=== PATIENT | male | born 1950 | race Caucasian/White ===

== ENCOUNTER 2018-02-12 14:45 | Emergency (ER) | payer OTHER, BC ==
[2018-02-12 16:41] LABS: Urine Blood NEGATIVE (NEG); Urine Glucose 1+ (NEG); Urine Protein NEGATIVE (NEG); Urine Specific Gravity >1.030 (1.005-1.030); Urine pH 5.5 (5.0-7.0)
[2018-02-12 17:08] LABS: Absolute Lymphocytes (CBC) 2.1 K/uL (0.7-4.9); Absolute Monocytes 0.4 K/uL (0.1-1.3); Absolute Neutrophil 2.8 K/uL (1.8-8.0); Basophils % 0.6 % (0-1.3); Hematocrit 40.7 % (39.6-49.0); Lymphocytes % 38.1 % (15.3-44.8); MCH 29.8 pg (27.0-35.0); MCV 86.5 fL (80-100); MPV 8.3 fL (7.6-11.3); Monocytes % 7.8 % (3.3-12.3); RBC Red Blood Cell Count 4.71 M/uL (4.33-5.43)
[2018-02-12] MEDS ORDERED: NA CHLORIDE 0.9% 1,000 ML ONE (17:15)
[2018-02-12 17:21] LABS: Potassium 3.6 mEq/L (3.6-5.0)
[2018-02-12 17:24] LABS: Bilirubin Total 0.5 mg/dL (0.3-1.2); Protein, Total 7.6 g/dL (6.0-8.3)
[2018-02-12 17:36] LABS: Calcium Oxalate Crystals- Ur FEW (NONE SEEN); Urine Bacteria NONE SEEN /HPF (NONE SEEN); Urine Culture Reflex Order REFLEXED; Urine RBC <5 /HPF (NONE SEEN)
[2018-02-12 17:37] LABS: Urine Mucus LIGHT /HPF (NONE SEEN)
[2018-02-12 17:58] LABS: Thyroid Stimulating Hormone 1.2 uIU/mL (0.34-5.60)
--- NOTE | 2018-02-12 18:08 | RAD REPORT ---
EXAM DESCRIPTION: RAD - Chest Single View - 02/12/2018 5:35 pm CLINICAL HISTORY: Shortness of breath COMPARISON: None. TECHNIQUE: AP portable chest image was obtained 1728 hours . FINDINGS: Lungs are clear. Heart and vasculature are normal. No measurable pleural effusion and no p neumothorax. No gross bony abnormality seen. No acute aortic findings suspected. IMPRESSION: No acute cardiopulmonary process.
--- NOTE | 2018-02-12 18:33 | EDPHYS ---
Physician Documentation [facility] Name: Jhon Long Age: 67 yrs Sex: Male : 1950 Arrival Date: 02/12/2018 Time: 14:47 Bed 17 Private MD: Shonna Herr H ED Physician Felice Butler HPI: 02/12 18:11 This 67 yrs old Male presents to ER via Ambulatory with complaints of Eye ps1 Pain, Blurred Vision, Fatigue. 18:11 hx of poor vision. States that he had a cataract repair with Dr. Simeon. since then he ps1 has not regained normal vision.. Onset: The symptoms/episode began/occurred 1 week(s) ago. Duration: the symptoms are episodic. Associated signs and symptoms: Pertinent positives: Pertinent negatives: headache, runny nose. Patient cataract repair. Went to [place] for a business trip. States that he had intermittent changes in vision but this is not abnormal for him. He then states that he has had profound fatigue that started once he was in [place] which is abnormal for him because he usually takes medication to help him sleep. He said that it started with pain in the back of his legs and then he just felt like he had to sleep. He got on the plane, did not remember the flight and has been wanting to sleep since. . Historical: - Allergies: 14:53 No Known Allergies; la1 - PMHx: 14:53 Diabetes - NIDDM; Hypertension; Sleep Apnea; la1 - Immunization history:: Adult Immunizations up to date. - Social history:: Smoking status: Patient/guardian denies using tobacco, the patient reports quitting approximately 21 years ago. ROS: 18:11 Constitutional: Negative for fever, chills, and weight loss. ps1 18:11 Neck: Negative for injury, pain, and swelling, Cardiovascular: Negative for chest pain, palpitations, and edema, Respiratory: Negative for shortness of breath, cough, wheezing, and pleuritic chest pain, Abdomen/GI: Negative for abdominal pain, nausea, vomiting, diarrhea, and constipation, Back: Negative for injury and pain, MS/Extremity: Negative for injury and deformity, Skin: Negative for injury, rash, and discoloration, Neuro: Negative for headache, weakness, numbness, tingling, and seizure, Psych: Negative for depression, anxiety, suicide ideation, homicidal ideation, and hallucinations. 18:11 Eyes: Positive for visual disturbance. Exam: 18:11 Constitutional: This is a well developed, well nourished patient who is awake, alert, ps1 and in no acute distress. Head/Face: Normocephalic, atraumatic. 18:11 Chest/axilla: Normal chest wall appearance and motion. Nontender with no deformity. No lesions are appreciated. Cardiovascular: Regular rate and rhythm. No gallops, murmurs, or rubs. Normal PMI, no JVD. No pulse deficits. Respiratory: Lungs have equal breath sounds bilaterally, clear to auscultation and percussion. No rales, rhonchi or wheezes noted. No increased work of breathing, no retractions or nasal flaring. Abdomen/GI: Soft, non-tender, with normal bowel sounds. No distension or tympany. No guarding or rebound. No evidence of tenderness throughout. Skin: Warm, dry with normal turgor. Normal color with no rashes, no lesions, and no evidence of cellulitis. MS/ Extremity: Pulses equal, no cyanosis. Neurovascular intact. Full, normal range of motion. Neuro: Awake and alert, GCS 15, oriented to person, place, time, and situation. Cranial nerves II-XII grossly intact. Sensory grossly intact. Psych: Awake, alert, with orientation to person, place and time. Behavior, mood, and affect are within normal limits. 18:11 Eyes: Extraocular movements: intact throughout, Conjunctiva: normal, Corneas: no acute changes, Sclera: no acute changes, Visual arita: are intact. Vital Signs: 14:53 BP 150 / 100; Pulse 76; Resp 16; Temp 98.0(TE); Pulse Ox 100% on R/A; Weight 88 kg; la1 Height 5 ft. 8 in. (172.72 cm); 16:30 BP 147 / 92; Pulse 71; Resp 18; Pulse Ox 100% on R/A; ph 17:31 BP 156 / 84; Pulse 63; Resp 16; Pulse Ox 95% on R/A; ph 18:30 BP 146 / 78; Pulse 67; Resp 18; Temp 97.8; Pulse Ox 99% on R/A; ph 14:53 Body Mass Index 29.50 (88.00 kg, 172.72 cm) la1 MDM: 15:52 Patient medically screened. ps1 18:11 Data reviewed: vital signs, nurses notes, lab test result(s), EKG, radiologic studies. ps1 ED course: Pt has been sleeping since exam. No lab abnormalities that are significant other than possible dehydration. IVF given. Possible viral etiology of disease. Will have patient follow up with Dr. Simeon and his PCP for reevaluation. . 02/12 15:50 Order name: TSH; Complete Time: 18:05 ps1 02/12 15:50 Order name: CBC with Diff; Complete Time: 17:11 ps1 02/12 15:50 Order name: CMP; Complete Time: 18:05 ps1 02/12 15:50 Order name: Troponin (emerg Dept Use Only); Complete Time: 17:37 ps1 02/12 15:50 Order name: D-Dimer; Complete Time: 17:37 ps1 02/12 16:33 Order name: Urine Dipstick--Ancillary (enter results); Complete Time: 16:42 jw5 02/12 15:50 Order name: Urine Dipstick-Ancillary (obtain specimen); Complete Time: 16:19 ps1 02/12 15:50 Order name: EKG - Nurse/Tech; Complete Time: 16:45 ps1 02/12 15:50 Order name: CXR XRAY; Complete Time: 18:10 ps1 02/12 16:36 Order name: Urine Microscopic Only; Complete Time: 17:40 ph 02/12 17:16 Order name: EKG Electrocardiogram EDMS 02/12 17:38 Order name: Urine Culture EDMS Administered Medications: 17:10 Drug: NS 0.9% 1000 ml Route: IV; Rate: 1 bolus; Site: right antecubital; ph 18:20 Follow up: Response: No adverse reaction; IV Status: Completed infusion ph Disposition: 02/12/18 18:33 Discharged to Home. Impression: Fatigue, Visual changes. . - Condition is Stable. - Discharge Instructions: Fatigue. - Medication Reconciliation Form, Thank You Letter, Antibiotic Education, Prescription Opioid Use form. - Follow up: Shonna Herr DO; When: As needed; Reason: Recheck today's complaints, Continuance of care, Re-evaluation by your physician. Follow up: Emergency Department; When: As needed; Reason: Fever > 102 F, Trouble breathing, Worsening of condition. Follow up: Fabricio Simeon MD; When: 1 week; Reason: Recheck today's complaints, Continuance of care, Re-evaluation by your physician. - Problem is new. - Symptoms are unchanged. Signatures: Dispatcher [employer] EDJosé Antonio Storm RN RN la1 Vivienne Walden RN RN ph Singer, Phillip, MD MD ps1
--- NOTE | 2018-02-12 18:33 | ER ---
Nurse's Notes [facility] Name: Jhon Long Age: 67 yrs Sex: Male : 1950 Arrival Date: 02/12/2018 Time: 14:47 Bed 17 Private MD: Shonna Herr H Diagnosis: Fatigue, Visual changes. Presentation: 02/12 14:51 Presenting complaint: Patient states: I have been having chronic blurry vision, I went la1 to [facility] this week and both my eyes started hurting on Monday and since Monday night I have been having extreme fatigue. Transition of care: patient was not received from another setting of care. Mechanism of Injury:. The patient denies any loss of vision. Onset of symptoms was February 12, 2018. Care prior to arrival: None. 14:51 Method Of Arrival: Ambulatory la1 14:51 Acuity: LILIANE 3 la1 Historical: - Allergies: 14:53 No Known Allergies; la1 - PMHx: 14:53 Diabetes - NIDDM; Hypertension; Sleep Apnea; la1 - Immunization history:: Adult Immunizations up to date. - Social history:: Smoking status: Patient/guardian denies using tobacco, the patient reports quitting approximately 21 years ago. Screenin:53 Abuse screen: Denies threats or abuse. Denies injuries from another. Nutritional ph screening: No deficits noted. Tuberculosis screening: Fall Risk None identified. 15:54 Sepsis Screening:. ph Assessment: 15:48 General: Appears in no apparent distress. comfortable, well groomed, Behavior is calm, ph cooperative, appropriate for age, Reports fatigue for 2-3 days, Pt states, " I have been so exhausted since Monday. It's like I can sleep anywhere. I usually have a hard time sleeping and it's like I can't keep my eyes open." Denies fever, chills. Pain: Complains of pain in lateral aspect of right thigh. Neuro: Level of Consciousness is awake, alert, obeys commands, Oriented to person, place, time, situation, Reports blurred vision. Cardiovascular: Reports fatigue, Denies chest pain, nausea, shortness of breath, vomiting, Capillary refill < 3 seconds Patient's skin is warm and dry. Respiratory: Airway is patent Respiratory effort is even, unlabored, Respiratory pattern is regular, symmetrical, Denies cough, shortness of breath. GI: No signs and/or symptoms were reported involving the gastrointestinal system. : Denies burning with urination, urinary frequency. EENT: Sclera/Cornea are clear in right eye and left eye Reports blurred vision hx of cataracts w/ roberta cataract sx 2017. Derm: Skin is intact, is healthy with good turgor, Skin is pink, warm \\T\\ dry. Musculoskeletal: Circulation, motion, and sensation intact. Range of motion: intact in all extremities. 17:00 Reassessment: Patient appears in no apparent distress at this time. Patient and/or ph family updated on plan of care and expected duration. Pain level reassessed. Patient is alert, oriented x 3, equal unlabored respirations, skin warm/dry/pink. Patient denies pain at this time. 18:30 Reassessment: Patient appears in no apparent distress at this time. Patient and/or ph family updated on plan of care and expected duration. Pain level reassessed. Patient is alert, oriented x 3, equal unlabored respirations, skin warm/dry/pink. Pt resting quietly, awaiting discharge. Vital Signs: 14:53 BP 150 / 100; Pulse 76; Resp 16; Temp 98.0(TE); Pulse Ox 100% on R/A; Weight 88 kg; la1 Height 5 ft. 8 in. (172.72 cm); 16:30 BP 147 / 92; Pulse 71; Resp 18; Pulse Ox 100% on R/A; ph 17:31 BP 156 / 84; Pulse 63; Resp 16; Pulse Ox 95% on R/A; ph 18:30 BP 146 / 78; Pulse 67; Resp 18; Temp 97.8; Pulse Ox 99% on R/A; ph 14:53 Body Mass Index 29.50 (88.00 kg, 172.72 cm) la1 ED Course: 14:47 Patient arrived in ED. as 14:49 Shonna Herr DO is Private Physician. as 14:53 Triage completed. la1 14:53 Arm band placed on left wrist. la1 14:58 Vivienne Walden RN is Primary Nurse. ph 15:32 Felice Butler MD is Attending Physician. ps1 15:55 Patient has correct armband on for positive identification. Placed in gown. Bed in low ph position. Call light in reach. Side rails up X 1. monitor and storage bin tender on. Pulse ox on. NIBP on. Warm blanket given. Pillow given. 15:55 Inserted saline lock: 18 gauge in left antecubital area, using aseptic technique. Blood ph collected. 16:50 EKG done, by aviation safety equipment technician. reviewed by Felice Butler MD. at1 17:34 X-ray completed. Portable x-ray completed in exam room. Patient tolerated procedure mh1 well. 17:36 CXR XRAY In Process Unspecified. EDMS 18:32 Shonna Herr DO is Referral Physician. ps1 18:33 Fabricio Simeon MD is Referral Physician. ps1 18:45 No provider procedures requiring assistance completed. IV discontinued, intact, ph bleeding controlled, No redness/swelling at site. Pressure dressing applied. Administered Medications: 17:10 Drug: NS 0.9% 1000 ml Route: IV; Rate: 1 bolus; Site: right antecubital; ph 18:20 Follow up: Response: No adverse reaction; IV Status: Completed infusion ph Outcome: 18:33 Discharge ordered by . ps1 18:49 Patient left the ED. ph 18:49 Discharged to home ambulatory. ph 18:49 Condition: good 18:49 Discharge instructions given to patient, Instructed on discharge instructions, follow up and referral plans. Demonstrated understanding of instructions, follow-up care. Signatures: Dispatcher [employer] EDVA Jenna Chavez 1 Daxa Pérez Amanda, interior wall assembler EKG Tat1 José Antonio Arnett RN RN id1 Vivienne Walden RN RN ph Singer, Phillip, MD MD ps1
[2018-02-12 19:04] VITALS: TEMP 98
[2018-02-12 19:06] VITALS: BP 156/84; O2SAT 95
--- NOTE | 2018-02-13 08:28 | EKG ---
Test Date: 2018-02-12 Test Time: 16:34:51 Executive Secretary: PADMA MEASUREMENT RESULTS: Intervals: Rate: 63 MN: 166 QRSD: 104 QT: 396 QTc: 405 [place]: P: 9 MN: 166 QRS: -19 T: -14 INTERPRETIVE STATEMENTS: Normal sinus rhythm Minimal voltage criteria for LVH, may be normal variant Nonspecific T wave abnormality Abnormal ECG Compared to ECG 06/27/2017 10:38:42 No significant changes Electronically Signed On 02-13-18 08:26:25 CDT by Jesse Wilder
== END 2018-02-12 18:49 | disposition home or self-care (01) ==
LOC: ER 14:45
DX: H53.9 Unspecified visual disturbance (principal); I10 Essential (primary) hypertension; Z98.890 Other specified postprocedural states
CPT/HCPCS: 36415; 71045; 80053; 84443; 84484; 85025; 85379; 87086; 87088; 93005; 96360; 99284; J7030; 81003; 81015

== ENCOUNTER 2019-08-06 07:57 | Observation (INO) | payer OTHER, BC ==
[2019-08-06] MEDS ORDERED: SMZ./TMP. 800/160 MG TABLET ONE (08:31)
[2019-08-06] MEDS ORDERED: dexAMETHasone 10 MG/ML VIAL ONE (08:31)
[2019-08-06] MEDS ORDERED: FAMOTIDINE 20 MG/2 ML VIAL IV ONE (08:32)
[2019-08-06] MEDS ORDERED: MUPIROCIN 2% OINT 22GM TUBE TOP ONE (08:32)
[2019-08-06] MEDS ORDERED: NA CHLORIDE 0.9% 1,000 ML ONE (08:32)
[2019-08-06] MEDS ORDERED: DOXYCYCLINE 100 MG CAP PO ONE (08:32)
[2019-08-06] MEDS ORDERED: CEFAZOLIN/SWI 1gm 1 GM/10 ML SYR ONE (08:33)
[2019-08-06 08:43] LABS: Absolute Lymphocytes (CBC) 1.9 K/uL (0.7-4.9); Basophils % 0.8 % (0-1.3); Lymphocytes % 33.8 % (15.3-44.8); MPV 8.1 fL (7.6-11.3); RBC Red Blood Cell Count 5.02 M/uL (4.33-5.43)
[2019-08-06] MEDS ORDERED: DIPHENHYDRAMINE 50 MG/ML VIAL ONE (09:03)
[2019-08-06 09:05] LABS: Albumin 4.3 g/dL (3.4-5.0); Bilirubin Total 0.5 mg/dL (0.2-1.0); Protein, Total 8.2 g/dL (6.4-8.2)
--- NOTE | 2019-08-06 10:43 | EDPHYS ---
Physician Documentation [facility] Name: Jhon Long Age: 69 yrs Sex: Male : 1950 Arrival Date: 08/06/2019 Time: 07:59 Bed 15 Private MD: ED Physician Yariel Farfan HPI: 08/06 08:17 This 69 yrs old Male presents to ER via Ambulatory with complaints of Rash. [facility] 08:17 The patient's rash thought to be caused by Dermatitis. The rash is located on the face, anette chest, right arm and left arm. The rash can be described as crusted, erythematous. Severity of symptoms: At their worst the symptoms were. The patient has not experienced similar symptoms in the past. Historical: - Allergies: 08:02 No Known Allergies; ss - Home Meds: 11:33 diltiazem HCl 90 mg Oral tab daily [Active]; lisinopril Oral [Active]; metformin 1,000 bp mg Oral tab 2 times per day [Active]; - PMHx: 08:02 Diabetes - NIDDM; Hypertension; Sleep Apnea; COPD; ss - Immunization history:: Adult Immunizations up to date. - Social history:: Smoking status: Patient/guardian denies using tobacco. - Ebola Screening: : Patient denies exposure to infectious person Patient denies travel to an Ebola-affected area in the 21 days before illness onset. - Family history:: not pertinent. ROS: 08:17 Constitutional: Negative for fever, chills, and weight loss, Eyes: Negative for injury, anette pain, redness, and discharge, ENT: Negative for injury, pain, and discharge, Neck: Negative for injury, pain, and swelling, Cardiovascular: Negative for chest pain, palpitations, and edema, Respiratory: Negative for shortness of breath, cough, wheezing, and pleuritic chest pain, Abdomen/GI: Negative for abdominal pain, nausea, vomiting, diarrhea, and constipation, Back: Negative for injury and pain, : Negative for injury, bleeding, discharge, and swelling, MS/Extremity: Negative for injury and deformity, Neuro: Negative for headache, weakness, numbness, tingling, and seizure. 08:17 Skin: Positive for erythema, rash, swelling, of the face, chest, right arm and left arm. Exam: 08:17 Constitutional: This is a well developed, well nourished patient who is awake, alert, anette and in no acute distress. Eyes: Pupils equal round and reactive to light, extra-ocular motions intact. Lids and lashes normal. Conjunctiva and sclera are non-icteric and not injected. Cornea within normal limits. Periorbital areas with no swelling, redness, or edema. ENT: Nares patent. No nasal discharge, no septal abnormalities noted. Tympanic membranes are normal and external auditory canals are clear. Oropharynx with no redness, swelling, or masses, exudates, or evidence of obstruction, uvula midline. Mucous membranes moist. Neck: Trachea midline, no thyromegaly or masses palpated, and no cervical lymphadenopathy. Supple, full range of motion without nuchal rigidity, or vertebral point tenderness. No Meningismus. Chest/axilla: Normal chest wall appearance and motion. Nontender with no deformity. No lesions are appreciated. Cardiovascular: Regular rate and rhythm with a normal S1 and S2. No gallops, murmurs, or rubs. Normal PMI, no JVD. No pulse deficits. Respiratory: Lungs have equal breath sounds bilaterally, clear to auscultation and percussion. No rales, rhonchi or wheezes noted. No increased work of breathing, no retractions or nasal flaring. Abdomen/GI: Soft, non-tender, with normal bowel sounds. No distension or tympany. No guarding or rebound. No evidence of tenderness throughout. Back: No spinal tenderness. No costovertebral tenderness. Full range of motion. Male : Normal genitalia with no discharge or lesions. MS/ Extremity: Pulses equal, no cyanosis. Neurovascular intact. Full, normal range of motion. Neuro: Awake and alert, GCS 15, oriented to person, place, time, and situation. Cranial nerves II-XII grossly intact. Motor strength 5/5 in all extremities. Sensory grossly intact. Cerebellar exam normal. Normal gait. Psych: Awake, alert, with orientation to person, place and time. Behavior, mood, and affect are within normal limits. 08:17 Head/face: Noted is rash, swelling, that is mild, of the forehead, right eye, right cheek, nose, left cheek and left eye. Vital Signs: 08:02 BP 195 / 95; Pulse 65; Resp 16; Temp 98.6; Pulse Ox 99% on R/A; Weight 90.72 kg; Height ss 5 ft. 8 in. (172.72 cm); Pain 0/10; 10:00 BP 187 / 100; Pulse 71; Resp 14; Pulse Ox 95% ; bp 08:02 Body Mass Index 30.41 (90.72 kg, 172.72 cm) ss MDM: 08:03 Patient medically screened. [facility] 08:30 Data reviewed: vital signs, nurses notes, lab test result(s). [facility] [place] 08/06 08:17 Order name: CBC with Diff; Complete Time: 09:43 [facility] [place] 08/06 08:17 Order name: Comprehensive Metabolic Panel; Complete Time: :43 [facility] [place] 08/06 08:17 Order name: Wound dressing; Complete Time: 09: [facility] Administered Medications: 08:50 Drug: NS 0.9% 1000 ml Route: IV; Rate: 1 bolus; Site: left hand; la1 11:34 Follow up: IV Status: Completed infusion; IV Intake: 1000ml bp 08:51 Drug: Pepcid 40 mg Route: IVP; Site: left antecubital; la1 11:34 Follow up: Response: No adverse reaction bp 08:51 Drug: Decadron - Dexamethasone 10 mg Route: IVP; Site: left hand; la1 11:34 Follow up: Response: Marked relief of symptoms bp 08:52 Drug: Ancef 1 grams Route: IVPB; Site: left hand; la1 11:35 Follow up: IV Status: Completed infusion; IV Intake: 100ml bp 08:52 Drug: Bactroban Ointment 2 % 1 application Route: Topical; Site: face; la1 08:52 Drug: Bactrim (160 mg-800 mg (DS) 1 tablet Route: PO; la1 11:35 Follow up: Response: No adverse reaction bp 08:53 Drug: Doxycycline 200 mg Route: PO; la1 11:35 Follow up: Response: No adverse reaction bp 09:06 Drug: Benadryl 50 mg Route: IVP; Site: left hand; bp 11:34 Follow up: Response: Marked relief of symptoms bp 10:50 Drug: predniSONE 20 mg Route: PO; bp 11:35 Follow up: Response: No adverse reaction bp Disposition: 08/06/19 10:41 Hospitalization ordered by Victor M Sigala for Inpatient Admission. Preliminary diagnosis are Cellulitis of face, Allergic contact dermatitis, unspecified cause, Type 2 diabetes mellitus, Impetigo. - Bed requested for Telemetry/MedSurg (Inpatient). - Status is Inpatient Admission. bp - Condition is Stable. - Problem is new. - Symptoms are unchanged. UTI on Admission? No Signatures: Dispatcher [employer] EDMS Yariel Farfan MD MD cha Smirch, Shelby, RN RN ss José Antonio Arnett RN RN la1 Michael Song RN RN bp Corrections: (The following items were deleted from the chart) 11:29 10:41 Hospitalization Ordered by Victor M Sigala MD for Inpatient Admission. Preliminary ss diagnosis is Cellulitis of face; Allergic contact dermatitis, unspecified cause; Type 2 diabetes mellitus; Impetigo. Bed requested for Telemetry/MedSurg (Inpatient). Status is Inpatient Admission. Condition is Stable. Problem is new. Symptoms are unchanged. UTI on Admission? No. anette 11:59 11:29 08/06/2019 10:41 Hospitalization Ordered by Victor M Sigala MD for Inpatient bp Admission. Preliminary diagnosis is Cellulitis of face; Allergic contact dermatitis, unspecified cause; Type 2 diabetes mellitus; Impetigo. Bed requested for Telemetry/MedSurg (Inpatient). Status is Inpatient Admission. Condition is Stable. Problem is new. Symptoms are unchanged. UTI on Admission? No. ss
--- NOTE | 2019-08-06 10:43 | ER ---
Nurse's Notes [facility] Name: Jhon Long Age: 69 yrs Sex: Male : 1950 Arrival Date: 08/06/2019 Time: 07:59 Bed 15 Private MD: Diagnosis: Cellulitis of face;Allergic contact dermatitis, unspecified cause;Type 2 diabetes mellitus;Impetigo Presentation: 08/06 07:59 Presenting complaint: EMS states: Cutting down trees two days ago, redness, itching and ss swelling to eyes and bilateral upper extremities that began yesterday and is much worse today. Denies difficulty breathing. Transition of care: patient was not received from another setting of care. Onset of symptoms was August 03, 2019. Risk Assessment: Do you want to hurt yourself or someone else? Patient reports no desire to harm self or others. Initial Sepsis Screen: Does the patient meet any 2 criteria? No. Patient's initial sepsis screen is negative. Does the patient have a suspected source of infection? No. Patient's initial sepsis screen is negative. Care prior to arrival: None. 07:59 Method Of Arrival: Ambulatory ss 07:59 Acuity: LILIANE 3 ss Historical: - Allergies: 08:02 No Known Allergies; ss - Home Meds: 11:33 diltiazem HCl 90 mg Oral tab daily [Active]; lisinopril Oral [Active]; metformin 1,000 bp mg Oral tab 2 times per day [Active]; - PMHx: 08:02 Diabetes - NIDDM; Hypertension; Sleep Apnea; COPD; ss - Immunization history:: Adult Immunizations up to date. - Social history:: Smoking status: Patient/guardian denies using tobacco. - Ebola Screening: : Patient denies exposure to infectious person Patient denies travel to an Ebola-affected area in the 21 days before illness onset. - Family history:: not pertinent. Screenin:55 Abuse screen: Denies threats or abuse. Nutritional screening: No deficits noted. la1 Tuberculosis screening: No symptoms or risk factors identified. Fall Risk None identified. Assessment: 08:53 General: Appears in no apparent distress. Behavior is calm, cooperative. Pain: Denies la1 pain. Neuro: Level of Consciousness is awake, alert, obeys commands, Oriented to person, place, time, situation. Cardiovascular: Capillary refill < 3 seconds Patient's skin is warm and dry. Respiratory: Airway is patent Respiratory effort is even, unlabored, Respiratory pattern is regular, symmetrical. GI: No signs and/or symptoms were reported involving the gastrointestinal system. : No signs and/or symptoms were reported regarding the genitourinary system. Derm: Rash noted that is draining clear fluid, itchy, papular, red, raised, urticaria, vesicular, on face, chest, right arm and left arm. 09:00 Reassessment: RECD REPORT FROM JOSÉ ANTONIO CHEW. 69YO WM P/W INFLAMMATION AND RASH TO BUE, FACE bp AND TRUNK WITH OMI-ORBITAL EDEMA. 10:19 Reassessment: Patient states symptoms have improved. bp Vital Signs: 08:02 BP 195 / 95; Pulse 65; Resp 16; Temp 98.6; Pulse Ox 99% on R/A; Weight 90.72 kg; Height ss 5 ft. 8 in. (172.72 cm); Pain 0/10; 10:00 BP 187 / 100; Pulse 71; Resp 14; Pulse Ox 95% ; bp 08:02 Body Mass Index 30.41 (90.72 kg, 172.72 cm) ED Course: 07:59 Patient arrived in ED. ss 08:00 Triage completed. ss 08:02 Arm band placed on right wrist. ss 08:03 Yariel Farfan MD is Attending Physician. anette 08:30 José Antonio Arnett RN is Primary Nurse. la1 08:54 Patient has correct armband on for positive identification. la1 08:54 Inserted saline lock: 22 gauge in left hand, using aseptic technique. la1 10:40 Victor M Sigala MD is Hospitalizing Provider. anette 11:31 No provider procedures requiring assistance completed. Patient admitted, IV remains in bp place. Administered Medications: 08:50 Drug: NS 0.9% 1000 ml Route: IV; Rate: 1 bolus; Site: left hand; la1 11:34 Follow up: IV Status: Completed infusion; IV Intake: 1000ml bp 08:51 Drug: Pepcid 40 mg Route: IVP; Site: left antecubital; la1 11:34 Follow up: Response: No adverse reaction bp 08:51 Drug: Decadron - Dexamethasone 10 mg Route: IVP; Site: left hand; la1 11:34 Follow up: Response: Marked relief of symptoms bp 08:52 Drug: Ancef 1 grams Route: IVPB; Site: left hand; la1 11:35 Follow up: IV Status: Completed infusion; IV Intake: 100ml bp 08:52 Drug: Bactroban Ointment 2 % 1 application Route: Topical; Site: face; la1 08:52 Drug: Bactrim (160 mg-800 mg (DS) 1 tablet Route: PO; la1 11:35 Follow up: Response: No adverse reaction bp 08:53 Drug: Doxycycline 200 mg Route: PO; la1 11:35 Follow up: Response: No adverse reaction bp 09:06 Drug: Benadryl 50 mg Route: IVP; Site: left hand; bp 11:34 Follow up: Response: Marked relief of symptoms bp 10:50 Drug: predniSONE 20 mg Route: PO; bp 11:35 Follow up: Response: No adverse reaction bp Intake: 11:34 IV: 1000ml; Total: 1000ml. bp 11:35 IV: 100ml; Total: 1100ml. bp Outcome: 10:41 Decision to Hospitalize by Provider. anette 11:36 Condition: stable bp 11:36 Instructed on the need for admit. 11:44 Admitted to Med/surg accompanied by tech, via wheelchair, room 221, with chart, Report bp called to RODOLFO CHEW 11:59 Patient left the ED. bp Signatures: Yariel Farfan MD MD cha Smirch, Shelby RN RN ss José Antonio Arnett RN RN laMichael Cortes RN RN bp
[2019-08-06] MEDS ORDERED: predniSONE 20 MG TAB ONE (11:10)
[2019-08-06] MEDS: INSULIN -REGULAR HUMAN 50 UNIT/0.5 ML ML SQ SCH ×3 (12:15→21:05)
[2019-08-06] MEDS ORDERED: ONDANSETRON 4 MG/2 ML VIAL IV PRN (12:15)
[2019-08-06 12:20] VITALS: BMI 30.4
[2019-08-06] MEDS: NA CHLORIDE 0.9% 1,000 ML IV SCH ×2 (12:45→22:40)
--- NOTE | 2019-08-06 17:38 | P.HP ---
Certification for Inpatient Patient admitted to: Observation With expected LOS: <2 Midnights Practitioner: I am a practitioner with admitting privileges, knowledge of patient current condition, hospital course, and medical plan of care. Services: Services provided to patient in accordance with Admission requirements found in Title 42 Section 412.3 of the Code of Federal Regulations Patient History Date of Service: 08/06/19 Reason for admission: Contact dermatitis History of Present Illness: This is a 61-year-old male with past medical history of hypertension, non- insulin-dependent diabetes, sleep apnea who presents to the emergency room with a rash on his face. Per patient, 2 days ago, he was mowing and cutting sotalol on and was in contact with some branches on his face. This was at the son's house, and he states his son's backyard does have some Soma, placed and open as well as poison walter. He started itching on his hand that evening. By the next day, his eye and face have swollen. The day of arrival, patient states that he could not even open his left eye in his right eye and only slightly open. He states that the rash is itchy. His eyes also seemed to be red. He denies any fevers, chills, chest pain, shortness of breath, headache, vision changes, breathing difficulties, swelling of the tongue or throat shortness of breath or any vision changes somewhat. He therefore called the ambulance and and was brought into the emergency room. In the ER, blood pressure was elevated to 195/95, heart rate of 65, respirations of 16, afebrile at 98.6 and satting 99% on room air. He has a BMI of 30.4. His labs were unremarkable. In the ER, he received IV fluids, Pepcid , dexamethasone, ancef, Bactrim, doxycycline and IV Benadryl. The time of my exam, patient is alert oriented x3, in no acute distress and hemodynamically stable. He was able to open his eyes more, the rash had improved. Allergies No Known Allergies Allergy (Verified 06/28/17 14:08) Home medications list reviewed: Yes Home Medications: Diltiazem HCl [Diltiazem ER] 90 mg PO DAILY 06/27/17 Metformin HCl [Glucophage] 1,000 mg PO BID 06/27/17 Glimepiride [Amaryl] 2 mg PO BID 10/08/19 RX: Gabapentin 600 mg PO BID 08/06/19 - Past Medical/Surgical History Has patient received pneumonia vaccine in the past: Yes Diabetic: No -: DM -: HTN -: Cholecystectomy, -: Shoulder repair -: Left knee tendon repair - Family History Mother -: Hypertension, Diabetes - Social History Smoking Status: Former smoker Alcohol use: Yes CD- Drugs: No Caffeine use: No Place of Residence: Home Review of Systems 10-point ROS is otherwise unremarkable Physical Examination - Vital Signs Temperature: 97.9 F Blood Pressure: 175/88 Pulse: 84 Respirations: 18 Pulse Ox (%): 94 - Physical Exam General: Alert, In no apparent distress, Oriented x3 HEENT: Atraumatic, PERRLA, Mucous membr. moist/pink, Other (Bilateral eye swelling, now improved), EOMI, Sclerae nonicteric Neck: Supple, 2+ carotid pulse no bruit, No LAD, Without JVD or thyroid abnormality Respiratory: Clear to auscultation bilaterally, Normal air movement Cardiovascular: Regular rate/rhythm, Normal S1 S2 Gastrointestinal: Normal bowel sounds, No tenderness Musculoskeletal: No tenderness Integumentary: No rashes, Other (Contact dermatitis rash: On face, underneath bilateral on ice, outwards the cheeks. Delay needed rash, slightly raised and erythematous. Also noted on base of his neck) Neurological: Normal gait, Normal speech, Normal strength at 5/5 x4 extr, Normal tone, Normal affect Lymphatics: No axilla or inguinal lymphadenopathy - Studies Laboratory Data (last 24 hrs) 08/06/19 08:26: Sodium 141, Potassium 4.0, BUN 15, Creatinine 1.08, Glucose 115 H, Total Bilirubin 0.5, AST 27, ALT 48, Alkaline Phosphatase 64 08/06/19 08:26: WBC 5.7, Hgb 15.2, Hct 45.0, Plt Count 196 Assessment and Plan - Problems (Diagnosis) (1) Contact dermatitis Current Visit: Yes Status: Acute Plan: Likely secondary to poison walter, poison oak or sumac. Patient thinks he may have come into contact with 1 of these 3 in his son's backyard while mowing the lawn. -IV steroids due to swelling of the eyes as well as the rash on the face -will continue p.o. Benadryl as needed -patient received a dose of Ancef, Bactrim and doxycycline in the ER. No need for further antibiotics at this time -continue to monitor respiratory status, though not compromised at this time Qualifiers: Contact dermatitis type: irritant Contact dermatitis trigger: other trigger Qualified Code(s): L24.89 - Irritant contact dermatitis due to other agents; L24.8 - Irritant contact dermatitis due to other agents (2) Diabetes mellitus Current Visit: Yes Status: Acute Plan: Accu-Cheks and mild sliding scale insulin Qualifiers: Diabetes mellitus type: type 2 Diabetes mellitus assisted insulin use: without assisted use Diabetes mellitus complication status: with hyperglycemia Qualified Code(s): E11.65 - Type 2 diabetes mellitus with hyperglycemia (3) Hypertension Current Visit: No Status: Chronic Plan: Initially, patient's blood pressure elevated. -restart home med medications of diltiazem. -will continue to monitor. If not controlled, may need to add another agent prior to discharge Qualifiers: Hypertension type: essential hypertension Qualified Code(s): I10 - Essential (primary) hypertension (4) Sleep apnea Current Visit: No Status: Chronic Plan: Patient uses CPAP at home. He states he does not have sleep apnea. Will order CPAP if needed, but patient states he does not think he will need it tonight. Qualifiers: Sleep apnea type: unspecified type Qualified Code(s): G47.30 - Sleep apnea , unspecified - Plan DVT prophylaxis: Lovenox GI prophylaxis: None Diet: 1800 ADA Disposition: Admit to floor with tele, pending symptomatic improvement. Discharge Plan: Home Plan to discharge in: 24 Hours - Advance Directives Does patient have a Living Will: No Does patient have a Durable POA for Healthcare: No Time Spent Managing Pts Care (In Minutes): 55
[2019-08-06] MEDS: DILTIAZEM HCL 180 MG SR CAP PO SCH (17:39)
[2019-08-06] MEDS: METHYLPREDNISOLONE 40 MG INJ IV SCH (18:24)
[2019-08-06 20:47] VITALS: O2SAT 93
[2019-08-06] MEDS ORDERED: HOME MED 1 EA UNK (Gabapentin [Gabapentin] 600 MG) PO SCH (21:00)
[2019-08-06] MEDS: DIPHENHYDRAMINE 25 MG TAB/CAP PO PRN (21:05)
[2019-08-06] MEDS: GABAPENTIN 300 MG CAP PO SCH (21:05)
[2019-08-07] MEDS: METHYLPREDNISOLONE 40 MG INJ IV SCH ×2 (01:22→08:49)
[2019-08-07 06:31] LABS: Absolute Lymphocytes (CBC) 0.7 K/uL (0.7-4.9); Basophils % 0.1 % (0-1.3); Hematocrit 38.5 % (39.6-49.0); Lymphocytes % 9.2 % (15.3-44.8); MPV 8.4 fL (7.6-11.3); RBC Red Blood Cell Count 4.35 M/uL (4.33-5.43)
[2019-08-07 06:43] LABS: Albumin 3.6 g/dL (3.4-5.0); Bilirubin Total 0.3 mg/dL (0.2-1.0); Magnesium 1.9 mg/dL (1.8-2.4); Phosphorus 2.7 mg/dL (2.5-4.9); Potassium 4.2 mmol/L (3.5-5.1); Protein, Total 6.9 g/dL (6.4-8.2)
[2019-08-07] MEDS: INSULIN -REGULAR HUMAN 50 UNIT/0.5 ML ML SQ SCH ×2 (07:30→12:51)
[2019-08-07] MEDS: NA CHLORIDE 0.9% 1,000 ML IV SCH (08:43)
[2019-08-07] MEDS: DILTIAZEM HCL 180 MG SR CAP PO SCH (08:45)
[2019-08-07] MEDS: GABAPENTIN 300 MG CAP PO SCH (08:48)
[2019-08-07] MEDS: DIPHENHYDRAMINE 25 MG TAB/CAP PO PRN (08:49)
[2019-08-07 08:50] LABS: Blood Morphology Comment NOT SEEN (NOT SEEN); Platelet Estimate ADEQ; Urine White Blood Cell Casts OK
[2019-08-07] MEDS ORDERED: ENOXAPARIN 40 MG/0.4 ML SQ SCH (09:00)
[2019-08-07 10:26] VITALS: TEMP 97.9
[2019-08-07 14:02] VITALS: BP 158/72
--- NOTE | 2019-08-07 17:20 | P.SSS ---
Patient History Date of Service: 08/07/19 Reason for admission: Contact dermatitis History of Present Illness: This is a 61-year-old male with past medical history of hypertension, non- insulin-dependent diabetes, sleep apnea who presents to the emergency room with a rash on his face. Per patient, 2 days ago, he was mowing and cutting sotalol on and was in contact with some branches on his face. This was at the son's house, and he states his son's backyard does have some Soma, placed and open as well as poison walter. He started itching on his hand that evening. By the next day, his eye and face have swollen. The day of arrival, patient states that he could not even open his left eye in his right eye and only slightly open. He states that the rash is itchy. His eyes also seemed to be red. He denies any fevers, chills, chest pain, shortness of breath, headache, vision changes, breathing difficulties, swelling of the tongue or throat shortness of breath or any vision changes somewhat. He therefore called the ambulance and and was brought into the emergency room. In the ER, blood pressure was elevated to 195/95, heart rate of 65, respirations of 16, afebrile at 98.6 and satting 99% on room air. He has a BMI of 30.4. His labs were unremarkable. In the ER, he received IV fluids, Pepcid , dexamethasone, ancef, Bactrim, doxycycline and IV Benadryl. The time of my exam, patient is alert oriented x3, in no acute distress and hemodynamically stable. He was able to open his eyes more, the rash had improved. Allergies No Known Allergies Allergy (Verified 06/28/17 14:08) Home medications list reviewed: Yes Home Medications: Diltiazem HCl [Diltiazem 12Hr ER] 90 mg PO DAILY 06/27/17 Metformin HCl [Glucophage] 1,000 mg PO BID 06/27/17 Gabapentin 600 mg PO BID 08/06/19 Glimepiride [Amaryl*] 2 mg PO BID 08/06/19 predniSONE [Prednisone] 20 mg PO BID #14 tablet 08/07/19 - Past Medical/Surgical History Has patient received pneumonia vaccine in the past: Yes Diabetic: No -: DM -: HTN -: Cholecystectomy, -: Shoulder repair -: Left knee tendon repair - Family History Mother -: Hypertension, Diabetes - Social History Smoking Status: Former smoker Alcohol use: Yes CD- Drugs: No Caffeine use: No Place of Residence: Home Review of Systems 10-point ROS is otherwise unremarkable Physical Examination - Vital Signs Temperature: 97.9 F Blood Pressure: 158/72 Pulse: 81 Respirations: 20 Pulse Ox (%): 95 - Physical Exam General: Alert, In no apparent distress, Oriented x3 HEENT: Atraumatic, PERRLA, Mucous membr. moist/pink, EOMI, Sclerae nonicteric Neck: Supple, 2+ carotid pulse no bruit, No LAD, Without JVD or thyroid abnormality Respiratory: Clear to auscultation bilaterally, Normal air movement Cardiovascular: Regular rate/rhythm, Normal S1 S2 Gastrointestinal: Normal bowel sounds, No tenderness Musculoskeletal: No tenderness Integumentary: Erythema (Improved,) Neurological: Normal gait, Normal speech, Normal strength at 5/5 x4 extr, Normal tone, Normal affect Lymphatics: No axilla or inguinal lymphadenopathy - Diagnosis (Problem(s)) (1) Contact dermatitis Status: Acute Plan: Likely secondary to poison walter, poison oak or sumac. Patient thinks he may have come into contact with 1 of these 3 in his son's backyard while cutting the branches of some trees. -patient was provided with IV steroids due to swelling to the eyes also rash on the face. He was also provided with oral Benadryl as needed. He received a dose of Ancef, Bactrim and doxycycline in the ER. He was not provide any further antibiotics. His rash improved drastically. Swelling but almost resolved. His otherwise remained stable throughout the stay. He was discharged home on oral steroids and instructions to take Benadryl if needed. He will follow up his primary care physician in a couple of days. He was also instructed to discuss blood pressure medications with his primary care physician. His diagnoses/treatment plan was explained to him, all questions were answered and he verbalized understanding. He was then discharged home in a safe and stable manner. 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 New medication: Prednisone, steroid. Return to the ER for worsenign symptoms. Diet: ADA Activity: Ad ronda Time Spent Managing Pts Care (In Minutes): 55
== END 2019-08-07 13:52 | disposition home or self-care (01) ==
LOC: ER 07:57 → ERHOLD 11:04 → 2ND 11:45
PROVIDERS: ADMIT Family Medicine; ATTEND Family Medicine
DX: L24.89 Irritant contact dermatitis due to other agents (principal); I10 Essential (primary) hypertension; E11.9 Type 2 diabetes mellitus without complications; G47.30 Sleep apnea, unspecified; Z87.891 Personal history of nicotine dependence
CPT/HCPCS: 96365; 85025 ×2; 36415; 83735; 84100; 82962 ×4; 80053 ×2; 94760 ×2; 96375; 99285; 96366; J1200; J1100; J0690; J7030 ×3; J2920 ×3; G0378 ×3; J1650; J7512

== ENCOUNTER 2020-07-18 04:21 | Emergency (ER) | payer OTHER, BC ==
--- OUTSIDE RECORDS SUMMARY | 2020-07-18 04:24 | XMS REPORT | Summary of Care ---
:1950 Author Organization [facility] Address [address] [place] [address]- Encounter HQ Maria Tr_carola(FIN) [id number] Date(s): 05/12/20 - 05/12/20 [facility] [address] [place] [address]- [phone] Discharge Disposition: Home or Self Care Attending Physician: Iam Huerta MD Referring Physician: Zay Avila MD Vital Signs Most recent to oldest [Reference Range]: 1 Height 170.18 cm (05/12/20 9:09 AM) Temperature Oral [96.4-99.1 DegF] 98.5 DegF (05/12/20 9:09 AM) Blood Pressure [90-140/60-90 mmHg] 141/67 mmHg *HI* (05/12/20 9:09 AM) Respiratory Rate [14-20 BRMIN] 16 BRMIN (05/12/20 9:09 AM) Peripheral Pulse Rate [60-100 bpm] 72 bpm (05/12/20 9:09 AM) Weight 93.182 kg (05/12/20 9:09 AM) Body Mass Index 32.17 m2 (05/12/20 9:09 AM) Problem List Condition Effective Dates Status Health Status Informant CTS (carpal tunnel Active syndrome)(Confirmed) Cervical radiculopathy(Confirmed) Active Diabetes mellitus(Confirmed) Active HTN - Hypertension(Confirmed) Active Meralgia paresthetica of right Active side(Confirmed) Paresthesia(Confirmed) Active Simple obesity(Confirmed) Active Allergies, Adverse Reactions, Alerts No Known Medication Allergies Medications No Known Medications Results No data available for this section Immunizations No data available for this section Procedures No data available for this section Social History Social History Type Response Employment/School Status: Employed. Work/Scho ol description: [employer]. 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
--- OUTSIDE RECORDS SUMMARY | 2020-07-18 04:24 | XMS REPORT | Continuity of Care Document ---
:1950 Author Organization [facility] Care Team Providers Name Role Phone [facility] Unavailable Un available Problems Problem Status Onset Classification Date Comments Sourc e Date Reported Cervical Active Problem 05/15/2020 [facility] radiculopathy Neuro (disorder) Diabetes mellitus Active Problem 05/15/2020 [facility] (disorder) Neuro Hypertensive Active Problem 05/15/2020 [facility] disorder, Neuro systemic arterial (disorder) Paresthesia Active Problem 05/15/2020 [facility] (finding) Neuro Simple obesity Active Problem 05/15/2020 M[facility] her (disorder) Neuro Carpal tunnel Active Problem 05/15/2020 M[facility] syndrome Neuro (disorder) Meralgia Active Problem 05/15/2020 [facility] paresthetica Neuro (disorder) Medications Medication Details Route Status Patient Ordering Order Source Instructions Provider Date meloxicam 15 mg oral 15 mg = 1 Active M ischer tablet tab, PO, 020 Neuro Daily, 0 Refill(s) glimepiride 2 mg oral 2 mg = 1 Active M ischer tablet tab, PO, 020 Neuro BID, 0 Refill(s) losartan 100 mg oral 100 mg = Active Mi arabella tablet 1 tab, 020 Neuro PO, Daily, 0 Refill(s) Hydralazine 50 mg = 1 Active [facility]ischer Hydrochloride 50 MG tab, PO, 020 Nisha ro Oral Tablet Bedtime, 0 Refill(s) tizanidine 4 mg oral 8 mg = 2 Active Mi arabella tablet tab, PO, 020 Neuro Q8H, 0 Refill(s) celecoxib 200 mg oral 200 mg = Active M ischer capsule 1 cap, 020 Neuro PO, Daily, # 30 cap, 0 Refill(s) gabapentin 600 MG 600 mg = Active Misch er Oral Tablet 1 tab, 020 Neuro PO, Daily, 0 Refill(s) Metformin PO, BID, Active Mischer 0 020 Neuro Refill(s) Hydrochlorothiazide 1 tab, Active Misc her 12.5 MG / Losartan PO, 020 Neuro Potassium 100 MG Oral Daily, 0 Tablet Refill(s) Allergies, Adverse Reactions, Alerts Substance Category Reaction Severity Reaction Status Date Comments S ource type Reported No Known Assertion Drug Misch er Medication allergy Neuro Allergies Immunizations No Data Provided for This Section Results No Data Provided for This Section Pathology Reports No Data Provided for This Section Diagnostic Reports No Data Provided for This Section Consultation Notes No Data Provided for This Section Discharge Summaries No Data Provided for This Section History and Physicals No Data Provided for This Section Vital Signs Vital Sign Value Date Comments Source Systolic (mm Hg) 141 05/12/2020 [facility] Diastolic (mm Hg) 67 05/12/2020 [facility] Heart Rate 72 05/12/2020 [facility] Respitory Rate 16 05/12/2020 [facility] Temperature Oral (F) 98.5 F 05/12/2020 [facility] Height 170.18 cm 05/12/2020 [facility] Weight 93.182 05/12/2020 [facility] BMI Calculated 32.17 05/12/2020 [facility] Systolic (mm Hg) 157 02/11/2020 [facility] Nisha ro Diastolic (mm Hg) 82 02/11/2020 [facility] Ne [facility] Heart Rate 66 02/11/2020 [facility] Respitory Rate 16 02/11/2020 [facility] Height 172.72 cm 02/11/2020 [facility] Weight 98.182 02/11/2020 [facility] BMI Calculated 32.91 02/11/2020 [facility] Systolic (mm Hg) 105 12/27/2019 [facility] Nisha ro Diastolic (mm Hg) 56 12/27/2019 [facility] Ne [facility] Heart Rate 76 12/27/2019 [facility] Respitory Rate 16 12/27/2019 [facility] Height 172.72 cm 12/27/2019 [facility] Weight 94.545 12/27/2019 [facility] BMI Calculated 31.69 12/27/2019 [facility] Encounters Location Location Encounter Encounter Reason Attending ADM IN Stat us Source Details Type Number For Provider Date Date Visit Outpatient [id number] Iam 12/27 [facility] [place] [facility] [id number] Iam 12/27 [facility] [place] [facility] [id number] Iam 02/10 Active [facility] [place] [facility] [id number] Zya 02/10 02/11 [facility] [place] [facility] [id number] Iam 05/12 [facility] [place] [facility] [id number] Iam 05/12 [facility]2019 [place] [facility] [id number] Zay 05/12 05/12 [facility] [place] [facility] [id number] Zay 05/12 05/13 [facility] [place] [facility] [id number] Iam 11/11 Active [facility] [place] Procedures No Data Provided for This Section Assessment and Plan No Data Provided for This Section Plan of Care No Data Provided for This Section Social History Social History Date Source Social History TypeResponse 12/28/2019 [facility] Employment/School Status: Employed. Work/School description: [employer]. Smoking Status Former smoker; Type: Cigarettes; Exposur e to Tobacco Smoke Unable to obtain; Cigarette Smoking Last 365 Days No; Reg Smoking Cessation Counseling No entered on: 05/12/20 Family History No Data Provided for This Section Advance Directives No Data Provided for This Section Functional Status No Data Provided for This Section
--- OUTSIDE RECORDS SUMMARY | 2020-07-18 04:25 | XMS REPORT | Continuity of Care Document ---
:1950 Author Organization [facility] t Address [address] [place] [address] Care Team Providers Name Role Phone Hugh Huerta Attending Clinician Problems Condition Condition Condition Status Onset Resolution Last Treating Co mments Source Name Details Category Date Date Treatment Clinician Date Cervical Problem Active 2020-05-15 Mem oria radiculopa 01:10:43 l thy Cervical Antonio n (disorder) radiculopa thy (disorder) Active Problem 05/15/2020 [facility] Diabetes Problem Active 2020-05-15 Mem oria mellitus 01:10:43 l (disorder) Diabetes He rmann mellitus (disorder) Active Problem 05/15/2020 [facility] Hypertensi Problem Active 2020-05-15 M emoria ve 01:10:43 l disorder, Vladimir systemic Hypertensi arterial ve (disorder) disorder, systemic arterial (disorder) Active Problem 05/15/2020 [facility] Paresthesi Problem Active 2020-05-15 M emoria a 01:10:43 l (finding) Vladimir Paresthesi a (finding) Active Problem 05/15/2020 [facility] Simple Problem Active 2020-05-15 Memor ia obesity 01:10:43 l (disorder) Simple Herm angelic obesity (disorder) Active Problem 05/15/2020 [facility] Carpal Problem Active 2020-05-15 Memor ia tunnel 01:10:43 l syndrome Carpal Antonio n (disorder) tunnel syndrome (disorder) Active Problem 05/15/2020 [facility] Meralgia Problem Active 2020-05-15 Mem oria parestheti 01:10:43 l ca Meralgia Antonio n (disorder) parestheti ca (disorder) Active Problem 05/15/2020 [facility] Allergies, Adverse Reactions, Alerts Allergy Allergy Status Severity Reaction(s) Onset Inactive Treating Comm ents Source Name Type Date Date Clinician No Known No Known Active Gisselle a Medicati Medicati l on on Vladimir Hankins s s Social History Social Habit Start Date Stop Date Quantity Comments Source Social History 2019-12-28 2019-12-[address] [facility] 00:01:49 00:01:49 Medications Ordered Filled Start Stop Current Ordering Indication Dosage Frequency Signature Comments Components Source Medication Medication Date Date Medication? Clinician (SIG) Name Name meloxicam 2020-0 Yes 15 mg = 1 Mem oria 15 mg oral 4-14 tab, PO, l tablet 13:34: Daily, 0 [place] 00 Refill(s) glimepiride 2020-0 Yes 2 mg = 1 Me moria 2 mg oral 4-14 tab, PO, l tablet 13:34: BID, 0 Vladimir 00 Refill(s) losartan 2020-0 Yes 100 mg = 1 Mem oria 100 mg oral 4-14 tab, PO, l tablet 13:34: Daily, 0 Vladimir 00 Refill(s) Hydralazine 2020-0 Yes 50 mg = 1 M emoria Hydrochlori 4-14 tab, PO, l de 50 MG 13:34: Bedtime, 0 Her solorzano Oral Tablet 00 Refill(s) tizanidine 2020-0 Yes 8 mg = 2 Mem oria 4 mg oral 4-14 tab, PO, l tablet 13:34: Q8H, 0 Vladimir 00 Refill(s) celecoxib 2020-0 Yes 200 mg = 1 Me moria 200 mg oral 4-14 cap, PO, l capsule 13:34: Daily, # Antonio n 00 30 cap, 0 Refill(s) gabapentin 2020-0 Yes 600 mg = 1 M emoria 600 MG Oral 2-28 tab, PO, l Tablet 21:33: Daily, 0 [place] 00 Refill(s) Metformin 2020-0 Yes PO, BID, 0 Me moria 2-28 Refill(s) l 21:33: Vladimir 00 Hydrochloro 2020-0 Yes 1 tab, PO, Memoria thiazide 2-28 Daily, 0 l 12.5 MG / 21:33: Refill(s) Her solorzano Losartan 00 Potassium 100 MG Oral Tablet Vital Signs Vital Name Observation Time Observation Value Comments Source Systolic (mm Hg) 2020-05-12 14:09:00 Tim rial Vladimir Diastolic (mm Hg) 2020-05-12 14:09:00 Mem orial [place] Heart Rate 2020-05-12 14:09:00 [facility] [place] Respitory Rate 2020-05-12 14:09:00 Memori al [place] Temperature Oral (F) 2020-05-12 14:09:00 98.5 F [facility] [place] Height 2020-05-12 14:09:00 170.18 cm [facility] [place] Weight 2020-05-12 14:09:00 [facility] [place] BMI Calculated 2020-05-12 14:09:00 Memori al [place] Systolic (mm Hg) 2020-02-11 13:24:00 Tim rial Vladimir Diastolic (mm Hg) 2020-02-11 13:24:00 Mem orial [place] Heart Rate 2020-02-11 13:24:00 [facility] [place] Respitory Rate 2020-02-11 13:24:00 Memori al [place] Height 2020-02-11 13:24:00 172.72 cm [facility] [place] Weight 2020-02-11 13:24:00 [facility] BMI Calculated 2020-02-11 13:24:00 Memori al [place] Systolic (mm Hg) 2019-12-27 21:30:00 Tim rial Vladimir Diastolic (mm Hg) 2019-12-27 21:30:00 Mem orial [place] Heart Rate 2019-12-27 21:30:00 [facility] [place] Respitory Rate 2019-12-27 21:30:00 Memori al [place] Height 2019-12-27 21:30:00 172.72 cm [facility] [place] Weight 2019-12-27 21:30:00 [facility] [place] BMI Calculated 2019-12-27 21:30:00 Memori al [place] Procedures This patient has no known procedures. Encounters Start End Encounter Admission Attending Care Care Encounter Source Date/Time Date/Time Type Type Clinicians Facility Department ID 2020-05-12 2020-05-12 Outpatient BETO Huerta [id number] 09:00:00 23:59:59 Iam 03 Hugh 2020-05-12 2020-05-12 Outpatient BETO Huerta [id number] 09:00:00 09:00:00 Iam 02 Hugh 2020-02-11 2020-02-11 Outpatient Krell, [facility] [id number] 08:15:00 23:59:59 Iam 01 Hugh 2019-12-27 2019-12-27 Outpatient Deanna [facility] [id number] 15:15:00 23:59:59 Iam Hugh Results This patient has no known results.
--- OUTSIDE RECORDS SUMMARY | 2020-07-18 04:25 | XMS REPORT | Summary of Care ---
:1950 Author Organization [facility] [place] Address [address] [place] [address]- Encounter HQ Rachnantr_carola(FIN) [id number] Date(s): 05/12/20 - 05/12/20 [facility] [address] [place] [address]- [phone] Attending Physician: Iam Huerta MD Referring Physician: Zay Avila MD Vital Signs No data available for this section Problem List Condition Effective Dates Status Health Status Informant CTS (carpal tunnel Active syndrome)(Confirmed) Cervical radiculopathy(Confirmed) Active Diabetes mellitus(Confirmed) Active HTN - Hypertension(Confirmed) Active Meralgia paresthetica of right Active side(Confirmed) Paresthesia(Confirmed) Active Simple obesity(Confirmed) Active Allergies, Adverse Reactions, Alerts No Known Medication Allergies Medications No data available for this section Results No data available for this section Immunizations No data available for this section Procedures No data available for this section Social History Social History Type Response Employment/School Status: Employed. 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
[2020-07-18] MEDS ORDERED: MORPHINE 4 MG/ML SYR ONE ×2 (04:49→06:50)
[2020-07-18] MEDS ORDERED: NA CHLORIDE 0.9% 1,000 ML ONE (04:49)
[2020-07-18] MEDS ORDERED: ONDANSETRON 4 MG/2 ML VIAL ONE (04:49)
[2020-07-18 05:00] LABS: Absolute Lymphocytes (CBC) 1.8 K/uL (0.7-4.9); Basophils % 0.6 % (0-1.3); Hematocrit 34.8 % (39.6-49.0); Lymphocytes % 22.3 % (15.3-44.8); MPV 7.9 fL (7.6-11.3); RBC Red Blood Cell Count 3.87 M/uL (4.33-5.43)
[2020-07-18 05:07] LABS: ALT/SGPT 37 U/L (12-78); AST/SGOT 26 U/L (15-37); Albumin 4.1 g/dL (3.4-5.0); Alkaline Phosphatase 68 U/L (45-117); BUN Blood Urea Nitrogen 31 mg/dL (7-18); Bicarbonate 26 mmol/L (21-32); Bilirubin Direct 0.1 mg/dL (0-0.2); Bilirubin Total 0.5 mg/dL (0.2-1.0); Glucose Level 177 mg/dL (74-106); Lipase 145 U/L (73-393); Potassium 4.3 mmol/L (3.5-5.1); Protein, Total 8.1 g/dL (6.4-8.2); Sodium Level 136 mmol/L (136-145); Troponin (Emerg Dept Use Only) < 0.02 ng/mL (0.0-0.045)
[2020-07-18 05:40] LABS: Urine Blood NEGATIVE (NEG); Urine Glucose 2+ (NEG); Urine Protein 1+ (NEG); Urine Specific Gravity 1.025 (1.005-1.030); Urine pH 5.5 (5.0-7.0)
[2020-07-18] MEDS ORDERED: MAGNE/ALUM HYDROXD 30 ML UCUP ONE (05:51)
[2020-07-18] MEDS ORDERED: LIDOCAINE VISCOUS 2% SOLN 15 ML UDC ONE (05:51)
[2020-07-18] MEDS ORDERED: FAMOTIDINE 20 MG/2 ML VIAL IV ONE (06:50)
--- NOTE | 2020-07-18 07:15 | ER ---
Nurse's Notes [facility] Name: Jhon Long Age: 70 yrs Sex: Male : 1950 Arrival Date: 07/18/2020 Time: 04:24 Bed 7 Private MD: Shonna Herr H Diagnosis: Pancreatitis;Duodenitis Presentation: 07/18 04:24 Chief complaint: EMS states: COMPLAINING OF SHARP ABDOMINAL PAIN, 8/10. AT AROUND 0100. rv VOMITED FOUR TIMES. DENIES FEVER. Coronavirus screen: Client denies travel out of the [place] in the last 14 days. At this time, the client does not indicate any symptoms associated with coronavirus-19. Ebola Screen: No symptoms or risks identified at this time. Initial Sepsis Screen: Does the patient meet any 2 criteria? No. Patient's initial sepsis screen is negative. Does the patient have a suspected source of infection? No. Patient's initial sepsis screen is negative. Risk Assessment: Do you want to hurt yourself or someone else? Patient reports no desire to harm self or others. Onset of symptoms was July 18, 2020 at 01:00. 04:24 Method Of Arrival: EMS: [facility] rv 04:24 Acuity: LILIANE 3 rv Triage Assessment: 04:26 General: Appears uncomfortable, Behavior is calm, cooperative. Pain: Complains of pain rv in abdomen Pain does not radiate. Pain currently is 8 out of 10 on a pain scale. Quality of pain is described as burning, Pain began 3 hours ago. EENT: No signs and/or symptoms were reported regarding the EENT system. Neuro: Level of Consciousness is awake, alert, obeys commands, Oriented to person, place, time, situation. Cardiovascular: Patient's skin is warm and dry. Respiratory: Airway is patent Respiratory effort is even, unlabored. Derm: Skin is intact. Historical: - Allergies: : No Known Allergies; rv - PMHx: 04:26 COPD; Diabetes - NIDDM; Hypertension; Sleep Apnea; rv - PSHx: 04:26 Cholecystectomy; rv - Immunization history:: Adult Immunizations up to date. - Social history:: Smoking status: Patient reports the use of cigarette tobacco products, denies chronic smoking, but will smoke occasionally. Screenin:30 Abuse screen: Denies threats or abuse. Denies injuries from another. Nutritional rv screening: No deficits noted. Tuberculosis screening: No symptoms or risk factors identified. Fall Risk None identified. Assessment: 04:40 General: Appears uncomfortable, Behavior is calm, cooperative. Pain: Complains of pain mg2 in abdomen Pain does not radiate. Pain currently is 8 out of 10 on a pain scale. Quality of pain is described as aching, Pain began gradually, Is intermittent. Neuro: Level of Consciousness is awake, alert, obeys commands, Oriented to person, place, time, situation. Cardiovascular: Capillary refill < 3 seconds Patient's skin is warm and dry. Respiratory: Airway is patent Respiratory effort is even, unlabored, Respiratory pattern is regular, symmetrical. GI: Reports upper abdominal pain, diarrhea, nausea, vomiting. : No signs and/or symptoms were reported regarding the genitourinary system. EENT: No deficits noted. Derm: Skin is intact, is healthy with good turgor, Skin is pink, warm \T\ dry. normal. Musculoskeletal: Circulation, motion, and sensation intact. Capillary refill < 3 seconds. 05:31 Reassessment: Patient appears in no apparent distress at this time. Patient and/or mg2 family updated on plan of care and expected duration. Pain level reassessed. Patient is alert, oriented x 3, equal unlabored respirations, skin warm/dry/pink. Vital Signs: 04:24 BP 172 / 92; Pulse 79; Resp 18; Temp 98.6; Pulse Ox 99% ; Weight 92.99 kg; Height 5 ft. rv 7 in. (170.18 cm); Pain 8/10; 04:46 BP 153 / 83; Pulse 71; Resp 18; Pulse Ox 89% on R/A; mg2 04:46 Pulse Ox 98% on 2 lpm NC; mg2 05:32 BP 176 / 83; Pulse 70; Resp 18; Pulse Ox 98% on 2 lpm NC; mg2 06:34 BP 137 / 78; Pulse 78; Resp 18; Pulse Ox 98% on 2 lpm NC; mg2 04:24 Body Mass Index 32.11 (92.99 kg, 170.18 cm) rv ED Course: 04:24 Patient arrived in ED. rv 04:25 David León MD is Attending Physician. [facility] 04:26 Triage completed. rv 04:26 Wei Barber, JEEVAN is Primary Nurse. mg2 04:26 Arm band placed on right wrist. Patient placed in the treatment room, on a stretcher, rv Patient notified of wait time. 04:30 Patient has correct armband on for positive identification. Pulse ox on. NIBP on. rv 04:30 Initial lab(s) drawn, by me, sent to lab. Inserted saline lock: 20 gauge in right rv antecubital area, using aseptic technique. Blood collected. 04:33 Shonna Herr DO is Private Physician. sg 04:44 Inserted saline lock: 20 gauge in left antecubital area, using aseptic technique. rv ,using aseptic technique. by WEI CHEW. 04:49 No provider procedures requiring assistance completed. mg2 05:56 CT Abd/Pelvis - Without Contrast In Process Unspecified. EDMS 07:13 Shonna Herr DO is Referral Physician. mh7 07:14 Kory Rodriguez MD is Referral Physician. mh7 07:42 IV discontinued, intact, bleeding controlled, No redness/swelling at site. Pressure jl7 dressing applied. Administered Medications: 04:43 Drug: morphine 4 mg {Note: rass 0.} Route: IVP; Site: left antecubital; rv 05:31 Follow up: Response: No adverse reaction mg2 04:43 Drug: NS 0.9% 1000 ml Route: IV; Rate: 1000 ml; Site: left antecubital; rv 05:31 Follow up: Response: No adverse reaction; IV Status: Completed infusion; IV Intake: mg2 1000ml 04:44 Drug: Zofran (Ondansetron) 4 mg Route: IVP; Site: left antecubital; rv 05:31 Follow up: Response: No adverse reaction mg2 05:53 Drug: GI Cocktail without - (Maalox Suspension 30 ml, Lidocaine Liquid 2 % 15 mg2 ml) Route: PO; 06:34 Follow up: Response: No adverse reaction mg2 06:41 Drug: Pepcid 20 mg Route: IVP; Site: left antecubital; mg2 06:41 Drug: morphine 4 mg Route: IVP; Site: left antecubital; mg2 Intake: 05:31 IV: 1000ml; Total: 1000ml. mg2 Outcome: 07:14 Discharge ordered by . mh7 07:42 Discharged to home via wheelchair, with family. [facility] 07:42 Condition: stable 07:42 Discharge instructions given to patient, Instructed on discharge instructions, follow up and referral plans. medication usage, Demonstrated understanding of instructions, follow-up care, medications, Prescriptions given X 4. 07:42 Patient left the ED. [facility] Signatures: Dispatcher [employer] EDMS Finesse Vasquez RN RN sg Leal, Jahala, RN RN [facility] Wei Barber RN RN mg2 Vicente, Ronaldo RN David Carrasquillo MD MD [facility]
--- NOTE | 2020-07-18 07:16 | EDPHYS ---
Physician Documentation [facility] Name: Jhon Long Age: 70 yrs Sex: Male : 1950 Arrival Date: 07/18/2020 Time: 04:24 Bed 7 Private MD: Shonna Herr H ED Physician David León HPI: 07/18 04:33 This 70 yrs old Male presents to ER via EMS with complaints of Abdominal mh7 Pain.. 04:33 The patient presents with abdominal pain in the epigastric area. Onset: The mh7 symptoms/episode began/occurred last night. The symptoms do not radiate. Associated signs and symptoms: Pertinent positives: nausea and vomiting, Pertinent negatives: anorexia, blood in stools, chest pain, constipation, diarrhea, dysuria, fever, headache, hematuria, palpitations, shortness of breath, testicular pain, vomiting blood. The symptoms are described as intermittent, vague, waxing/waning. Modifying factors: The symptoms are alleviated by nothing, the symptoms are aggravated by nothing. Severity of pain: At its worst the pain was moderate today, in the emergency department the pain is unchanged. Historical: - Allergies: 04:26 No Known Allergies; rv - PMHx: 04:26 COPD; Diabetes - NIDDM; Hypertension; Sleep Apnea; rv - PSHx: 04:26 Cholecystectomy; rv - Immunization history:: Adult Immunizations up to date. - Social history:: Smoking status: Patient reports the use of cigarette tobacco products, denies chronic smoking, but will smoke occasionally. ROS: 04:33 Constitutional: Negative for fever, chills, and weight loss, Eyes: Negative for injury, mh7 pain, redness, and discharge, ENT: Negative for injury, pain, and discharge, Neck: Negative for injury, pain, and swelling, Cardiovascular: Negative for chest pain, palpitations, and edema, Respiratory: Negative for shortness of breath, cough, wheezing, and pleuritic chest pain, Back: Negative for injury and pain, : Negative for injury, bleeding, discharge, and swelling, MS/Extremity: Negative for injury and deformity, Skin: Negative for injury, rash, and discoloration, Neuro: Negative for headache, weakness, numbness, tingling, and seizure, Psych: Negative for depression, anxiety, suicide ideation, homicidal ideation, and hallucinations, Allergy/Immunology: Negative for hives, rash, and allergies, Endocrine: Negative for neck swelling, polydipsia, polyuria, polyphagia, and marked weight changes, Hematologic/Lymphatic: Negative for swollen nodes, abnormal bleeding, and unusual bruising. Exam: 04:33 Head/Face: Normocephalic, atraumatic. Eyes: Pupils equal round and reactive to light, mh7 extra-ocular motions intact. Lids and lashes normal. Conjunctiva and sclera are non-icteric and not injected. Cornea within normal limits. Periorbital areas with no swelling, redness, or edema. Neck: Trachea midline, no thyromegaly or masses palpated, and no cervical lymphadenopathy. Supple, full range of motion without nuchal rigidity, or vertebral point tenderness. No Meningismus. Chest/axilla: Normal chest wall appearance and motion. Nontender with no deformity. No lesions are appreciated. Cardiovascular: Regular rate and rhythm with a normal S1 and S2. No gallops, murmurs, or rubs. Normal PMI, no JVD. No pulse deficits. Respiratory: Lungs have equal breath sounds bilaterally, clear to auscultation and percussion. No rales, rhonchi or wheezes noted. No increased work of breathing, no retractions or nasal flaring. 04:33 Back: No spinal tenderness. No costovertebral tenderness. Full range of motion. Skin: Warm, dry with normal turgor. Normal color with no rashes, no lesions, and no evidence of cellulitis. MS/ Extremity: Pulses equal, no cyanosis. Neurovascular intact. Full, normal range of motion. Neuro: Awake and alert, GCS 15, oriented to person, place, time, and situation. Cranial nerves II-XII grossly intact. Motor strength 5/5 in all extremities. Sensory grossly intact. Cerebellar exam normal. Normal gait. Psych: Awake, alert, with orientation to person, place and time. Behavior, mood, and affect are within normal limits. 04:33 Constitutional: The patient appears in no acute distress, alert, awake, uncomfortable. 04:33 Abdomen/GI: Inspection: obese Bowel sounds: normal, in all quadrants, Palpation: moderate abdominal tenderness, in the epigastric area, Rectal exam: the exam is deferred, because of patient request, Indicators: McBurney's point is not tender, Henson's sign is negative, Rovsing's sign is negative, Obturator sign is negative, Psoas sign is negative, Liver: no appreciated palpable abnormalities, Hernia: not appreciated. 07:21 ECG was reviewed by the Attending Physician. 7 Vital Signs: 04:24 BP 172 / 92; Pulse 79; Resp 18; Temp 98.6; Pulse Ox 99% ; Weight 92.99 kg; Height 5 ft. rv 7 in. (170.18 cm); Pain 8/10; 04:46 BP 153 / 83; Pulse 71; Resp 18; Pulse Ox 89% on R/A; mg2 04:46 Pulse Ox 98% on 2 lpm NC; mg2 05:32 BP 176 / 83; Pulse 70; Resp 18; Pulse Ox 98% on 2 lpm NC; mg2 06:34 BP 137 / 78; Pulse 78; Resp 18; Pulse Ox 98% on 2 lpm NC; mg2 04:24 Body Mass Index 32.11 (92.99 kg, 170.18 cm) rv MDM: 04:31 Patient medically screened. [facility] 07:12 Differential diagnosis: bowel obstruction, diverticulitis, gastritis, gastroesophageal mh7 reflux disease, myocardia ischemia or infarction, non-specific abd pain, pancreatitis, Peptic Ulcer Disease, urinary tract infection. Data reviewed: vital signs, nurses notes, old medical records, lab test result(s), cardiac enzymes, CBC, electrolytes, urinalysis, EKG, radiologic studies, CT scan. Data interpreted: Pulse oximetry: on room air is 98 %. Interpretation: normal. Counseling: I had a detailed discussion with the patient and/or guardian regarding: the historical points, exam findings, and any diagnostic results supporting the discharge/admit diagnosis, the presence of at least one elevated blood pressure reading (>120/80) during this emergency department visit, lab results, radiology results, the need for outpatient follow up, to return to the emergency department if symptoms worsen or persist or if there are any questions or concerns that arise at home. Response to treatment: the patient's symptoms have resolved after treatment, the patient's blood pressure is in an acceptable range, mental status has returned to baseline, the patient no longer shows bradycardia, the patient is not short of breath, the patient is not tachycardic, the patient's pain is gone, the patient's temperature has normalized. 07/18 04:27 Order name: Basic Metabolic Panel; Complete Time: 05:13 mg2 07/18 04:27 Order name: CBC with Diff; Complete Time: 05:13 mg2 07/18 04:27 Order name: Hepatic Function; Complete Time: 05:13 mg2 07/18 04:27 Order name: Lipase; Complete Time: 05:13 mg2 07/18 04:27 Order name: Troponin (emerg Dept Use Only); Complete Time: 05:13 mg2 07/18 05:39 Order name: Urine Dipstick--Ancillary (enter results); Complete Time: 05:45 tt3 07/18 04:27 Order name: IV Saline Lock; Complete Time: 04:27 mg2 07/18 05:14 Order name: CT Abd/Pelvis - Without Contrast 7 07/18 04:27 Order name: Labs collected and sent; Complete Time: 04:27 mg2 07/18 04:32 Order name: EKG - Nurse/Tech; Complete Time: 04:44 mh7 07/18 04:32 Order name: Urine Dipstick-Ancillary (obtain specimen); Complete Time: 05:32 mh7 EC:21 Rate is 79 beats/min. Rhythm is regular, Normal Sinus Rhythm. QRS [place] is Normal. [place] mh7 interval is normal. QRS interval is normal. QT interval is normal. Q waves are Present in lead V1. T waves are Normal. No ST changes noted. Clinical impression: Abnormal EKG without significant change. Administered Medications: 04:43 Drug: morphine 4 mg {Note: rass 0.} Route: IVP; Site: left antecubital; rv 05:31 Follow up: Response: No adverse reaction mg2 04:43 Drug: NS 0.9% 1000 ml Route: IV; Rate: 1000 ml; Site: left antecubital; rv 05:31 Follow up: Response: No adverse reaction; IV Status: Completed infusion; IV Intake: mg2 1000ml 04:44 Drug: Zofran (Ondansetron) 4 mg Route: IVP; Site: left antecubital; rv 05:31 Follow up: Response: No adverse reaction mg2 05:53 Drug: GI Cocktail without - (Maalox Suspension 30 ml, Lidocaine Liquid 2 % 15 mg2 ml) Route: PO; 06:34 Follow up: Response: No adverse reaction mg2 06:41 Drug: Pepcid 20 mg Route: IVP; Site: left antecubital; mg2 06:41 Drug: morphine 4 mg Route: IVP; Site: left antecubital; mg2 Disposition: 07/18/20 07:14 Discharged to Home. Impression: Pancreatitis, Duodenitis. - Condition is Stable. - Discharge Instructions: Acute Pancreatitis, [id number], Duodenitis. - Prescriptions for Zofran ODT 4 mg Oral tablet,disintegrating - place 1 tablet by TRANSLINGUAL route every 8 hours As needed; 10 tablet. Bentyl 20 mg Oral Tablet - take 1 tablet by ORAL route every 6 hours As needed; 20 tablet. Pepcid 20 mg Oral Tablet - take 1 tablet by ORAL route every 12 hours for 5 days; 10 tablet. Tylenol- Codeine #3 300-30 mg Oral Tablet - take 2 tablets by ORAL route every 6 hours As needed; 20 tablet. - Medication Reconciliation Form, Thank You Letter, Antibiotic Education, Prescription Opioid Use form. - Follow up: Shonna Herr DO; When: 1 - 2 days; Reason: Worsening of condition, Recheck today's complaints, Continuance of care, Re-evaluation by your physician. Follow up: Kory Rodriguez MD; When: 1 - 2 days; Reason: Worsening of condition, Recheck today's complaints. - Problem is new. - Symptoms have improved. Signatures: Dispatcher [employer] EDMS Linwood Chavis RN RN jl7 Dima Barber RN RN mg2 Burt Sarah RN RN David León MD MD mh7 Corrections: (The following items were deleted from the chart) 07:42 07:14 07/18/2020 07:14 Discharged to Home. Impression: Pancreatitis; Duodenitis. jl7 Condition is Stable. Forms are Medication Reconciliation Form, Thank You Letter, Antibiotic Education, Prescription Opioid Use. Follow up: Shonna Herr; When: 1 - 2 days; Reason: Worsening of condition, Recheck today's complaints, Continuance of care, Re-evaluation by your physician. Follow up: Kory Rodriguez; When: 1 - 2 days; Reason: Worsening of condition, Recheck today's complaints. Problem is new. Symptoms have improved. mh7
[2020-07-18 07:53] VITALS: TEMP 98.6
[2020-07-18 07:55] VITALS: O2SAT 98
[2020-07-18 07:58] VITALS: BP 137/78
--- NOTE | 2020-07-18 10:35 | RAD REPORT ---
EXAM DESCRIPTION: CT - Abdomen Pelvis Wo Contrast - 07/18/2020 6:18 am CLINICAL HISTORY: Abdominal pain. COMPARISON: None. TECHNIQUE: Axial unenhanced CT imaging of the abdomen and pelvis performed. Reformatted coronal and sagittal images reviewed. A dose reduction technique was utilized with automated exposure control according to patient size. FINDINGS: Mild right and left lower lobe atelectasis. Heart is normal in size. Minimal coronary sara ry calcifications. Normal liver size, contour. Mild fatty infiltration. No mass or biliary dilatation. Gallbladder has b een resected. Normal spleen. Minimal edema adjacent to the pancreatic head and proximal body. No duct dilatation or mass. Normal adrenal glands. Normal right kidney. Left kidney contains a 3 cm cyst. Si gnificant abdominal aorta and moderate iliac artery atherosclerosis. Normal caliber inferior vena cav a. No adenopathy. Normal stomach. Mild thickening of the duodenal bulb and descending segment of the duodenum with aurelio duodenal edema. No adjacent free air. Remaining small bowel loops are unremarkable. Appendix is jose juan l within the right lower quadrant. Unremarkable colon. There is no free air or ascites. Unremarkable bladder. The prostate contains several dystrophic calcifications. No pelvic free fluid o r adenopathy. Mild lower thoracic degenerative change. Lumbar spine is unremarkable. Intact bony pelvis. Normal hip s. IMPRESSION: 1. Duodenitis. 2. Very mild pancreatitis without mass, duct dilatation, or pseudocyst. 3. Mild fatty liver infiltration. 4. Left renal cyst. Electronically signed by: Isa Wilson DO 07/18/2020 6:08 AM CDT Due to temporary technical issues with the PACS/Fluency reporting system, reports are being signed by the in house radiologist without review as a courtesy to ensure prompt reporting. The interpreting r adiologist is fully responsible for the content of the report.
== END 2020-07-18 07:42 | disposition home or self-care (01) ==
LOC: ER 04:21
DX: K85.90 Acute pancreatitis without necrosis or infection, unspecified (principal); K29.80 Duodenitis without bleeding; I10 Essential (primary) hypertension; F17.210 Nicotine dependence, cigarettes, uncomplicated
CPT/HCPCS: 96361; 93005; 85025; 80048; 36415; 80076; 81003; 84484; 83690; 74176; 96375; 96374; 99284; J7030; J2405

== ENCOUNTER 2020-07-20 08:30 | Emergency (ER) | payer OTHER, BC ==
[2020-07-20 08:56] LABS: Absolute Lymphocytes (CBC) 1.4 K/uL (0.7-4.9); Basophils % 0.6 % (0-1.3); Hematocrit 32.9 % (39.6-49.0); Lymphocytes % 23.6 % (15.3-44.8); MPV 7.7 fL (7.6-11.3); RBC Red Blood Cell Count 3.69 M/uL (4.33-5.43)
[2020-07-20] MEDS ORDERED: ONDANSETRON 4 MG/2 ML VIAL ONE (09:00)
[2020-07-20] MEDS ORDERED: MEPERIDINE HCL 50 MG/ML ONE (09:00)
[2020-07-20] MEDS ORDERED: NA CHLORIDE 0.9% 500 ML ONE (09:00)
[2020-07-20] MEDS ORDERED: LIDOCAINE VISCOUS 2% SOLN 15 ML UDC ONE (09:00)
[2020-07-20] MEDS ORDERED: MAGNE/ALUM HYDROXD 30 ML UCUP ONE (09:00)
[2020-07-20 09:22] LABS: ALT/SGPT 40 U/L (12-78); AST/SGOT 29 U/L (15-37); Albumin 3.8 g/dL (3.4-5.0); Alkaline Phosphatase 64 U/L (45-117); BUN Blood Urea Nitrogen 25 mg/dL (7-18); Bicarbonate 30 mmol/L (21-32); Bilirubin Direct < 0.1 mg/dL (0-0.2); Bilirubin Total 0.3 mg/dL (0.2-1.0); Glucose Level 174 mg/dL (74-106); Lipase 132 U/L (73-393); Potassium 4.4 mmol/L (3.5-5.1); Sodium Level 136 mmol/L (136-145)
--- OUTSIDE RECORDS SUMMARY | 2020-07-20 09:26 | XMS REPORT | Continuity of Care Document ---
:1950 Author Organization [employer] Care Team Providers Name Role Phone [employer] Unavailable Un available Problems Problem Status Onset [...] Comments Source Systolic (mm Hg) 141 05/12/2020 [facility] N[facility] Diastolic (mm Hg) 67 05/12/2020 [facility] Ne uro Heart Rate 72 05/12/2020 [facility] Neuro Respitory Rate 16 05/12/2020 [facility] Temperature Oral (F) 98.5 F 05/12/2020 [facility] Height 170.18 cm 05/12/2020 [facility] Weight 93.182 05/12/2020 [facility] BMI Calculated 32.17 05/12/2020 [facility] Systolic (mm Hg) 157 02/11/2020 [facility] Nisha ro Diastolic (mm Hg) 82 02/11/2020 [facility] Ne uro Heart Rate 66 02/11/2020 [facility] Neuro Respitory Rate 16 02/11/2020 [facility] Height 172.72 cm 02/11/2020 [facility] Weight 98.182 02/11/2020 [facility] Neuro BMI Calculated 32.91 02/11/2020 [facility] Systolic (mm Hg) 105 12/27/2019 [facility] Nisha ro Diastolic (mm Hg) 56 12/27/2019 [facility] Ne uro Heart Rate 76 12/27/2019 [facility] Neuro Respitory Rate 16 12/27/2019 [facility] Height 172.72 cm 12/27/2019 [facility] Neuro Weight 94.545 12/27/2019 [facility] Neuro BMI Calculated 31.69 12/27/2019 [facility] Neuro Encounters Location Location Encounter Encounter Reason Attending ADM AK Stat us Source Details Type Number For Provider Date Date Visit Outpatient [id number] Iam 12/27 [facility] [place] [facility] Outpatient [id number] Iam 12/27 [facility] Neurology Kre /2019 Neuro [place] Outpatient [id number] Iam 02/10 [facility] [place] [facility] [id number] Zay 02/10 02/11 [facility] [place] Outpatient [id number] Iam 05/12 [facility]2019 [place] Outpatient [id number] Iam 05/12 [facility]2019 [place] [facility] Ambulatory [id number] Zay 05/12 05/12 [facility] [place] [facility] Outpatient [id number] Zay 05/12 05/13 [facility] [place] Outpatient [id number] Iam 11/11 Active [facility] [place] Procedures No Data Provided for This Section [...]
--- OUTSIDE RECORDS SUMMARY | 2020-07-20 09:27 | XMS REPORT | Continuity of Care Document ---
:1950 Author Organization [facility] t Address [address] [place] [address] Care Team Providers Name Role Phone Hguh Huerta Attending Clinician Problems Condition Condition Condition [...] 2020-05-15 M emoria a 01:10:43 l (finding) [place] Paresthesi a (finding) Active Problem 05/15/2020 [facility] [...] Quantity Comments Source Social History 2019-12-28 2019-12-28 [facility] 00:01:49 00:01:49 Medications Ordered Filled Start Stop Current Ordering Indication Dosage Frequency Signature Comments Components Source Medication Medication Date Date Medication? Clinician (SIG) Name Name meloxicam 2020-0 Yes 15 mg = 1 Mem oria 15 mg oral 4-14 tab, PO, l tablet 13:34: Daily, 0 [place] 00 Refill(s) glimepiride 2020-0 Yes 2 mg = 1 Me moria 2 mg oral 4-14 tab, PO, l tablet 13:34: BID, 0 Vladimir 00 Refill(s) losartan 2020-0 Yes 100 mg = 1 Mem oria 100 mg oral 4-14 tab, PO, l tablet 13:34: Daily, 0 Holstein 00 Refill(s) Hydralazine 2020-0 Yes 50 mg = 1 M emoria Hydrochlori 4-14 tab, PO, l de 50 MG 13:34: Bedtime, 0 Her solorzano Oral Tablet 00 Refill(s) tizanidine 2020-0 Yes 8 mg = 2 Mem oria 4 mg oral 4-14 tab, PO, l tablet 13:34: Q8H, 0 [place] 00 Refill(s) celecoxib 2020-0 Yes 200 mg = 1 Me moria 200 mg oral 4-14 cap, PO, l capsule 13:34: Daily, # Antonio n 00 30 cap, 0 Refill(s) gabapentin 2020-0 Yes 600 mg = 1 M emoria 600 MG Oral 2-28 tab, PO, l Tablet 21:33: Daily, 0 [place]stein 00 Refill(s) Metformin 2020-0 Yes PO, BID, 0 Me moria 2-28 Refill(s) l 21:33: [place] 00 Hydrochloro 2020-0 Yes 1 tab, PO, Memoria thiazide 2-28 Daily, 0 l 12.5 MG / 21:33: Refill(s) Her solorzano Losartan 00 Potassium 100 MG Oral Tablet Vital Signs Vital Name Observation Time Observation Value Comments Source Systolic (mm Hg) 2020-05-12 14:09:00 Tim rial [place] Diastolic (mm Hg) 2020-05-12 14:09:00 Mem orial [place] Heart Rate 2020-05-12 14:09:00 [facility] [place] Respitory Rate 2020-05-12 14:09:00 Memori al [place] Temperature Oral (F) 2020-05-12 14:09:00 98.5 F [facility] [place] Height 2020-05-12 14:09:00 170.18 cm [facility] [place] Weight 2020-05-12 14:09:00 [facility] [place] BMI Calculated 2020-05-12 14:09:00 Memori al [place] Systolic (mm Hg) 2020-02-11 13:24:00 Tim rial [place] Diastolic (mm Hg) 2020-02-11 13:24:00 Mem orial [place] Heart Rate 2020-02-11 13:24:00 [facility] [place] Respitory Rate 2020-02-11 13:24:00 Memori al [place] Height 2020-02-11 13:24:00 172.72 cm [facility] [place] Weight 2020-02-11 13:24:00 [facility] [place] BMI Calculated 2020-02-11 13:24:00 Memori al [place] Systolic (mm Hg) 2019-12-27 21:30:00 Tim rial [place] Diastolic (mm Hg) 2019-12-27 21:30:00 Mem orial [place] Heart Rate 2019-12-27 21:30:00 [facility] [place] Respitory Rate 2019-12-27 21:30:00 Memori al [place] Height 2019-12-27 21:30:00 172.72 cm [facility] [place] Weight 2019-12-27 21:30:00 [facility] [place] BMI Calculated 2019-12-27 21:30:00 Memori al [place] Procedures This patient has no known procedures. Encounters Start End Encounter Admission Attending Care Care Encounter Source Date/Time Date/Time Type Type Clinicians Facility Department ID 2020-05-12 2020-05-12 Outpatient BETO Huerta [id number] 09:00:00 23:59:59 Iam 03 Hugh 2020-05-12 2020-05-12 Outpatient BETO Huerta [id number] 09:00:00 09:00:00 Iam 02 Hugh 2020-02-11 2020-02-11 Outpatient [facility]rell, [facility] [id number] 08:15:00 23:59:59 Iam 01 Hugh 2019-12-27 2019-12-27 Outpatient Deanna [facility] [id number] 15:15:00 23:59:59 Iam Hugh Results This patient has no known results.
--- NOTE | 2020-07-20 09:41 | RAD REPORT ---
EXAM DESCRIPTION: CT - Abdomen Pelvis Wo Contrast - 07/20/2020 9:08 am CLINICAL HISTORY: Abdominal pain. worsening abd pain;Abd pain COMPARISON: Abdomen Pelvis Wo Contrast dated 07/18/2020 TECHNIQUE: CT imaging of the abdomen and pelvis was performed without contrast. Solid organ, bowel a nd vascular assessment is limited due to lack of IV and oral contrast. All CT scans are performed using dose optimization technique as appropriate and may include automated exposure control or mA/KV adjustment according to patient size. FINDINGS: The lower lung arita are clear.Cholecystectomy clips. Inflammatory changes are seen about the duodenal C-loop region. The liver, spleen, pancreas, adrenal glands and kidneys are within normal limits for a limited non-co ntrast examination. No bowel obstruction, free air, free fluid or abscess. Sigmoid diverticulosis coli without diverticul itis. The appendix is normal. The osseous structures are within normal limits. IMPRESSION: Mild inflammatory changes seen about the distal stomach/duodenum. This appears stable si nce the comparative study and follow-up upper endoscopy may be considered. A limited non-contrast examination was performed as detailed.
--- NOTE | 2020-07-20 10:06 | EDPHYS ---
Physician Documentation [facility] Name: Jhon Long Age: 70 yrs Sex: Male : 1950 Arrival Date: 07/20/2020 Time: 08:34 Bed 18 Private MD: ED Physician Tarik Christianson HPI: 07/20 08:39 This 70 yrs old Male presents to ER via EMS with complaints of Abdominal Pain.rn 08:39 The patient presents with abdominal pain in the epigastric area. Onset: The rn symptoms/episode began/occurred 2 day(s) ago. The symptoms do not radiate. Associated signs and symptoms: Pertinent positives: constipation, nausea, vomiting. The symptoms are described as crampy. Modifying factors: The symptoms are alleviated by nothing, the symptoms are aggravated by food. Severity of pain: At its worst the pain was moderate in the emergency department the pain has improved. The patient has not experienced similar symptoms in the past. The patient has been recently seen at the [facility] Emergency Department. Reports seen here 2 days ago for this problem, was doing better, ate chocolate ice cream last night, and pain got worse, + epigastrium, + nausea, + constipation. Reports has been eating ok in last 2 days, had steak last night. Reports did not modify diet when went home and didn't take meds as prescribed. . Historical: - Allergies: 08:45 No Known Allergies; jl7 - Home Meds: 08:45 losartan-hydrochlorothiazide 100-12.5 mg oral tab 1 tab once daily [Active]; losartan jl7 100 mg oral tab 1 tab once daily [Active]; Cartia XT 240 mg Oral cp24 1 cap once daily [Active]; hydrochlorothiazide 12.5 mg Oral cap 1 cap once daily [Active]; glimepiride 2 mg Oral tab 2 tabs once daily [Active]; meloxicam 15 mg oral tab 1 tab once daily [Active]; celecoxib 200 mg Oral cap 1 cap once daily [Active]; metformin 1,000 mg Oral tab 2 times per day [Active]; hydralazine 50 mg Oral tab 1 tab 2 times per day [Active]; benzonatate 200 mg oral cap [Active]; gabapentin 600 mg oral tab [Active]; tizanidine 4 mg oral cap [Active]; Tramadol Oral [Active]; CPAP machine [Active]; - PMHx: 08:45 COPD; Diabetes - NIDDM; Hypertension; Sleep Apnea; Back pain; jl7 - PSHx: 08:45 Cholecystectomy; jl7 - Immunization history:: Adult Immunizations up to date. - Social history:: Smoking status: Patient denies any tobacco usage or history of. - Family history:: not pertinent. - Hospitalizations: : No recent hospitalization is reported. ROS: 08:41 Constitutional: Negative for fever, chills, and weight loss, Eyes: Negative for injury, rn pain, redness, and discharge, Neck: Negative for injury, pain, and swelling, Cardiovascular: Negative for chest pain, palpitations, and edema, Respiratory: Negative for shortness of breath, cough, wheezing, and pleuritic chest pain, Abdomen/GI: + abd pain, + nausea, + constipation MS/Extremity: Negative for injury and deformity, Skin: Negative for injury, rash, and discoloration, Neuro: Negative for headache, weakness, numbness, tingling, and seizure. Exam: 08:41 Constitutional: This is a well developed, well nourished patient who is awake, alert, rn appears uncomfortable Head/Face: Normocephalic, atraumatic. Cardiovascular: Regular rate and rhythm. No pulse deficits. Respiratory: Speaking full sentences. No increased work of breathing, no retractions or nasal flaring. Abdomen/GI: soft, + mild epigastric and periumbilical tenderness Skin: Warm, dry MS/ Extremity: Pulses equal, no cyanosis. Neurovascular intact. Full, normal range of motion. Equal circumference. Neuro: Awake and alert, GCS 15 09:00 ECG was reviewed by the Attending Physician. rn Vital Signs: 08:34 BP 177 / 83; Pulse 70; Resp 19; Temp 98.6; Pulse Ox 100% ; Weight 92.99 kg; Height 5 jl7 ft. 7 in. (170.18 cm); Pain 7/10; 09:50 BP 150 / 77; Pulse 94; Resp 15 S; Pulse Ox 94% on R/A; jl7 08:34 Body Mass Index 32.11 (92.99 kg, 170.18 cm) jl7 MDM: 08:37 Patient medically screened. rn 10:04 Differential diagnosis: gastritis, gastroesophageal reflux disease, non-specific abd rn pain, pancreatitis, Peptic Ulcer Disease. Data reviewed: vital signs, nurses notes, lab test result(s), radiologic studies, CT scan, and as a result, I will discharge patient. Counseling: I had a detailed discussion with the patient and/or guardian regarding: the historical points, exam findings, and any diagnostic results supporting the discharge/admit diagnosis, lab results, radiology results, the need for outpatient follow up, to return to the emergency department if symptoms worsen or persist or if there are any questions or concerns that arise at home. Response to treatment: the patient's symptoms have markedly improved after treatment, Sleeping comfortably, and as a result, I will discharge patient. Special discussion: I discussed with the patient/guardian in detail that at this point there is no indication for admission to the hospital. It is understood, however, that if the symptoms persist or worsen the patient needs to return immediately for re-evaluation. Based on the history and exam findings, there is no indication for further emergent testing or inpatient evaluation. I discussed with the patient/guardian the need to see the lining feller blindstitch for further evaluation of the symptoms. ED course: Pt with stable gastritis/duodenitis, likely 2/2 acid problems and ulcer formation, no evidence of bleeding, will dc home with antacids and GI f/u. . 07/20 08:37 Order name: Basic Metabolic Panel; Complete Time: :42 rn 07/20 08:37 Order name: CBC with Diff; Complete Time: : rn 07/20 08:37 Order name: Hepatic Function; Complete Time: : rn 07/20 08:37 Order name: Lipase; Complete Time: : rn 07/20 08:41 Order name: CT Abd/Pelvis - Without Contrast; Complete Time: : rn 07/20 08:43 Order name: Troponin (emerg Dept Use Only); Complete Time: :42 rn 07/20 08:37 Order name: IV Saline Lock; Complete Time: 08:51 rn 07/20 08:37 Order name: Labs collected and sent; Complete Time: 08:52 rn 07/20 08:41 Order name: EKG; Complete Time: 08:41 rn 07/20 08:41 Order name: EKG - Nurse/Tech; Complete Time: 09:00 rn EC:00 Rate is 63 beats/min. Rhythm is regular. QRS [place] is Normal. [place] interval is normal. QRS rn interval is normal. QT interval is normal. No Q waves. T waves are Normal. No ST changes noted. Clinical impression: Normal ECG. Interpreted by me. Reviewed by me. Administered Medications: 08:53 Drug: Zofran (Ondansetron) 4 mg Route: IVP; Site: right antecubital; jl7 10:26 Follow up: Response: No adverse reaction jl7 08:58 Drug: Demerol 25 mg Route: IVP; Site: right antecubital; jl7 09:20 Follow up: Response: No adverse reaction; Pain is decreased jl7 08:58 Drug: NS 0.9% 500 ml Route: IV; Rate: bolus; Site: right antecubital; jl7 09:45 Follow up: Response: No adverse reaction; IV Status: Completed infusion; IV Intake: jl7 500ml 08:58 Drug: GI Cocktail without - (Maalox Suspension 30 ml, Lidocaine Liquid 2 % 15 jl7 ml) Route: PO; 09:20 Follow up: Response: No adverse reaction; Pain is decreased jl7 Disposition: 07/20/20 10:05 Discharged to Home. Impression: Gastritis, unspecified, without bleeding, Gastritis and duodenitis. - Condition is Stable. - Discharge Instructions: Gastritis, Adult, Peptic Ulcer, Esophagogastroduodenoscopy. - Prescriptions for Protonix 40 mg Oral Tablet - take 1 tablet by ORAL route once daily; 30 tablet. - Medication Reconciliation Form, Thank You Letter, Antibiotic Education, Prescription Opioid Use form. - Follow up: Kory Rodriguez MD; When: As needed; Reason: Recheck today's complaints, Re-evaluation by your physician. - Problem is new. - Symptoms have improved. Signatures: Dispatcher [employer] EDTarik Eaton MD MD rn Leal, Jahala, RN RN jl7 Corrections: (The following items were deleted from the chart) 10:27 10:05 07/20/2020 10:05 Discharged to Home. Impression: Gastritis, unspecified, without jl7 bleeding; Gastritis and duodenitis. Condition is Stable. Forms are Medication Reconciliation Form, Thank You Letter, Antibiotic Education, Prescription Opioid Use. Follow up: Kory Rodriguez; When: As needed; Reason: Recheck today's complaints, Re-evaluation by your physician. Problem is new. Symptoms have improved. rn
--- NOTE | 2020-07-20 10:06 | ER ---
Nurse's Notes [facility] Name: Jhon Long Age: 70 yrs Sex: Male : 1950 Arrival Date: 07/20/2020 Time: 08:34 Bed 18 Private MD: Diagnosis: Gastritis, unspecified, without bleeding;Gastritis and duodenitis Presentation: 07/20 08:34 Chief complaint: EMS states: Epigastric pain since 0500. Coronavirus screen: Client jl7 denies travel out of the [place] in the last 14 days. At this time, the client does not indicate any symptoms associated with coronavirus-19. Ebola Screen: No symptoms or risks identified at this time. Initial Sepsis Screen: Does the patient meet any 2 criteria? No. Patient's initial sepsis screen is negative. Does the patient have a suspected source of infection? No. Patient's initial sepsis screen is negative. Risk Assessment: Do you want to hurt yourself or someone else? Patient reports no desire to harm self or others. Onset of symptoms was July 20, 2020 at 05:00. Care prior to arrival: None. 08:34 Method Of Arrival: EMS: [facility] 08:34 Acuity: LILIANE 3 jl7 Triage Assessment: 08:45 General: Appears in no apparent distress. uncomfortable, Behavior is calm, cooperative, jl7 appropriate for age. Pain: Complains of pain in epigastric area Pain currently is 7 out of 10 on a pain scale. Neuro: Level of Consciousness is awake, alert, obeys commands, Oriented to person, place, time, situation. Cardiovascular: Patient's skin is warm and dry. GI: Abdomen is round non-distended, Reports upper abdominal pain. : No signs and/or symptoms were reported regarding the genitourinary system. Derm: Skin is pink, warm \T\ dry. Historical: - Allergies: 08:45 No Known Allergies; jl7 - Home Meds: 08:45 losartan-hydrochlorothiazide 100-12.5 mg oral tab 1 tab once daily [Active]; losartan jl7 100 mg oral tab 1 tab once daily [Active]; Cartia XT 240 mg Oral cp24 1 cap once daily [Active]; hydrochlorothiazide 12.5 mg Oral cap 1 cap once daily [Active]; glimepiride 2 mg Oral tab 2 tabs once daily [Active]; meloxicam 15 mg oral tab 1 tab once daily [Active]; celecoxib 200 mg Oral cap 1 cap once daily [Active]; metformin 1,000 mg Oral tab 2 times per day [Active]; hydralazine 50 mg Oral tab 1 tab 2 times per day [Active]; benzonatate 200 mg oral cap [Active]; gabapentin 600 mg oral tab [Active]; tizanidine 4 mg oral cap [Active]; Tramadol Oral [Active]; CPAP machine [Active]; - PMHx: 08:45 COPD; Diabetes - NIDDM; Hypertension; Sleep Apnea; Back pain; jl7 - PSHx: 08:45 Cholecystectomy; jl7 - Immunization history:: Adult Immunizations up to date. - Social history:: Smoking status: Patient denies any tobacco usage or history of. - Family history:: not pertinent. - Hospitalizations: : No recent hospitalization is reported. Screenin:00 Abuse screen: Denies threats or abuse. Denies injuries from another. Nutritional jl7 screening: No deficits noted. Tuberculosis screening: No symptoms or risk factors identified. Fall Risk IV access (20 points). Total Santoyo Fall Scale indicates No Risk (0-24 pts). Assessment: 09:00 General: See triage assessment. jl7 09:50 Reassessment: ERD at bedside discussing results and POC. jl7 Vital Signs: 08:34 BP 177 / 83; Pulse 70; Resp 19; Temp 98.6; Pulse Ox 100% ; Weight 92.99 kg; Height 5 jl7 ft. 7 in. (170.18 cm); Pain 7/10; 09:50 BP 150 / 77; Pulse 94; Resp 15 S; Pulse Ox 94% on R/A; jl7 08:34 Body Mass Index 32.11 (92.99 kg, 170.18 cm) jl7 ED Course: 08:34 Patient arrived in ED. jl7 08:37 Tarik Christianson MD is Attending Physician. rn 08:38 Triage completed. jl7 08:45 Arm band placed on right wrist. jl7 08:45 Initial lab(s) drawn, by me, sent to lab. Inserted saline lock: 20 gauge in right dh3 antecubital area, using aseptic technique. Blood collected. 09:00 Patient has correct armband on for positive identification. Placed in gown. Bed in low jl7 position. Call light in reach. Side rails up X 1. under presser on. Pulse ox on. NIBP on. Warm blanket given. 09:00 EKG done, by solar installation technician. reviewed by Tarik Christianson MD. jl7 09:02 Linwood Chavis, JEEVAN is Primary Nurse. jl7 09:08 CT Abd/Pelvis - Without Contrast In Process Unspecified. EDMS 10:05 Kory Rodriguez MD is Referral Physician. rn 10:25 No provider procedures requiring assistance completed. IV discontinued, intact, jl7 bleeding controlled, No redness/swelling at site. Pressure dressing applied. Administered Medications: 08:53 Drug: Zofran (Ondansetron) 4 mg Route: IVP; Site: right antecubital; jl7 10:26 Follow up: Response: No adverse reaction jl7 08:58 Drug: Demerol 25 mg Route: IVP; Site: right antecubital; jl7 09:20 Follow up: Response: No adverse reaction; Pain is decreased jl7 08:58 Drug: NS 0.9% 500 ml Route: IV; Rate: bolus; Site: right antecubital; jl7 09:45 Follow up: Response: No adverse reaction; IV Status: Completed infusion; IV Intake: jl7 500ml 08:58 Drug: GI Cocktail without - (Maalox Suspension 30 ml, Lidocaine Liquid 2 % 15 jl7 ml) Route: PO; 09:20 Follow up: Response: No adverse reaction; Pain is decreased jl7 Intake: 09:45 IV: 500ml; Total: 500ml. jl7 Outcome: 10:05 Discharge ordered by . rn 10:25 Discharged to home ambulatory. jl7 10:25 Condition: stable 10:25 Discharge instructions given to patient, Instructed on discharge instructions, follow up and referral plans. medication usage, Demonstrated understanding of instructions, follow-up care, medications, Prescriptions given X 1. 10:27 Patient left the ED. jl7 Signatures: Dispatcher [employer] EDMS Tarik Christianson MD MD rn Leal, Jahala, RN RN jl7 Betzy Vazquez [facility]
[2020-07-20 10:35] VITALS: BP 150/77; TEMP 98.6; O2SAT 94
== END 2020-07-20 10:27 | disposition home or self-care (01) ==
LOC: ER 08:30
DX: K29.70 Gastritis, unspecified, without bleeding (principal); K29.80 Duodenitis without bleeding; E11.9 Type 2 diabetes mellitus without complications; I10 Essential (primary) hypertension; J44.9 Chronic obstructive pulmonary disease, unspecified
CPT/HCPCS: 96361; 93005; 85025; 80048; 36415; 80076; 84484; 83690; 74176; 96375; 96374; 99285; J2175; J7040; J2405

== ENCOUNTER 2021-04-05 09:00 | Emergency (ER) | payer OTHER, BC ==
--- OUTSIDE RECORDS SUMMARY | 2021-04-05 09:04 | XMS REPORT | Continuity of Care Document ---
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 Medications Ordered Filled Start Stop Current Ordering Indication Dosage Frequency Signature Comments Components Source Medication Medication Date Date Medication? Clinician (SIG) Name Name traMADol traMADol Yes ZEHRA ONE TABLET [facility] HCl - 50 MG HCl - 50 MG -26 STANO PRICE ACCURACY SUPERVISOR EVERY SIX ity of Oral Tablet Oral Tablet 00:00: HOURS PRN [place] 00 PAIN Physici ans Procedures Procedure Date / Time Performed Performing Clinician Sour e Post Op Promis 2021-02-09 00:00:00 [facility] Survey Physicians Encounters Start End Encounter Admission Attending Care Care Encounter Source Date/Time Date/Time Type Type Clinicians Facility Department ID 2021-03-06 Outpatient MERON [facility] [id number] [place] 03:26:35 [facility] 2021-01-19 2021-01-19 LEVON Justice [id number] Univers 11:45:00 11:45:00 t; ZEHRA TEAGUE, ity of ZEHRA, PRICE ACCURACY SUPERVISOR [place] PRICE ACCURACY SUPERVISOR Physici ans 2020-12-24 2020-12-24 LEVON Justice [id number] Univers 14:45:00 14:45:00 t; SEE TEAGUEYL, ity of ZEHRA, [facility] Physici ans 2020-12-08 2020-12-08 Appointmen HO [facility] [id number] Univers 10:45:00 10:45:00 t; HO ZEHRA, ity of ZEHRA, [facility] Physici ans 2020-11-24 2020-11-24 Appointmen HO [facility] [id number] Univers 08:45:00 08:45:00 t; ANOOPZEHRA Portillo, ity of ZEHRA, [facility] Physici ans 2020-11-14 2020-11-14 [id number] Univers 07:00:00 07:00:00 t; Caroline WADDELL ity of Sukhdeep CHANCE M.D. Physi ci ans Results This patient has no known results.
[2021-04-05 09:36] LABS: Basophils % 0.5 % (0-1.3); Hematocrit 30.7 % (39.6-49.0); MPV 8.2 fL (7.6-11.3); RBC Red Blood Cell Count 3.53 M/uL (4.33-5.43)
[2021-04-05 09:38] LABS: Protime INR 1.03
--- NOTE | 2021-04-05 10:09 | RAD REPORT ---
EXAM DESCRIPTION: Kae Single View04/05/2021 9:28 am CLINICAL HISTORY: Bradycardia COMPARISON: 2017 FINDINGS: The lungs appear clear of acute infiltrate. The heart is normal size IMPRESSION: No acute abnormalities displayed
[2021-04-05 10:13] LABS: ALT/SGPT 55 U/L (12-78); AST/SGOT 22 U/L (15-37); Albumin 2.8 g/dL (3.4-5.0); Alkaline Phosphatase 73 U/L (45-117); BUN Blood Urea Nitrogen 24 mg/dL (7-18); Bicarbonate 26 mmol/L (21-32); Bilirubin Direct 0.2 mg/dL (0-0.2); Bilirubin Total 0.7 mg/dL (0.2-1.0); NT PRO-BNP 44 pg/mL (<125); Potassium 3.5 mmol/L (3.5-5.1); Sodium Level 131 mmol/L (136-145); Troponin (Emerg Dept Use Only) < 0.02 ng/mL (0.0-0.045)
[2021-04-05 10:16] LABS: Glucose Level 430 mg/dL (74-106)
[2021-04-05] MEDS ORDERED: INSULIN -REGULAR HUMAN 50 UNIT/0.5 ML ML ONE (10:59)
--- NOTE | 2021-04-05 11:02 | RAD REPORT ---
EXAM DESCRIPTION: CT - Angio Aorta For Dissection - 04/05/2021 10:38 am CLINICAL HISTORY: . Chest and abdominal pain. Hypotension COMPARISON: 2019 and 2016 TECHNIQUE: Computed tomography angiography of the chest, abdomen pelvis were obtained. 100 cc Isovue 370 was administered intravenously. Coronal and sagittal reconstruction were performed. MIP 3D reconstruction was performed All CT scans are performed using dose optimization technique as appropriate and may include automated exposure control or mA/KV adjustment according to patient size. FINDINGS: An aortic dissection is not seen. The root of the thoracic aorta has an AP diameter of 4 centimeters. Mild atherosclerotic disease involves the aorta The celiac, SMA and FERMIN are patent . A lung consolidation is not present. A pericardial effusion is not seen. A pleural effusion is not n oted. 9 millimeter ground-glass nodule right middle lobe unchanged from June 2020 Fatty liver. Small right adrenal nodule unchanged probably an adenoma. Spleen, pancreas, left adrenal and right kidney unremarkable. Small left renal cyst. The appendix is normal. There no evidence diverticulitis. Small inguinal hernias contain fat. Wall of the rectum appears thickened IMPRESSION: Negative for an aortic dissection. Ascending thoracic aorta has an AP diameter 4 centimeters Apparent thickening of the wall of the rectum can be secondary to incomplete distention, inflammation or mass 9 millimeter ground-glass nodule unchanged from June 2020. Followup CT chest in 1 year recommend ed to reassess stability
--- NOTE | 2021-04-05 12:00 | ER ---
Nurse's Notes [facility] Name: Jhon Long Age: 70 yrs Sex: Male : 1950 Arrival Date: 04/05/2021 Time: 09:02 Bed 3 Private MD: Diagnosis: Hypotension, unspecified;Bradycardia, unspecified Presentation: 04/05 08:55 Chief complaint: EMS states: called out by Dr's office for pt not feeling well, sv bradycardia, and hypotension. Pt went to PCP today to get an abscess checked out of the left side. On EMS arrival BS-[id number], SBP 80s, HR-45-50s Atropine 0.5 mg IVP x 2 given, NS bolus started. 18G LAC. Pt was pale and needed some sternal rub initially to wake him. Initial Sepsis Screen: Does the patient meet any 2 criteria? No. Patient's initial sepsis screen is negative. Does the patient have a suspected source of infection? No. Patient's initial sepsis screen is negative. Risk Assessment: Do you want to hurt yourself or someone else? Patient reports no desire to harm self or others. Onset of symptoms was April 05, 2021. 08:55 Method Of Arrival: EMS: [facility] sv 08:55 Acuity: LILIANE 2 sv 09:00 Coronavirus screen: Client denies travel out of the [place] in the last 14 days. At this jl7 time, the client does not indicate any symptoms associated with coronavirus-19. Ebola Screen: No symptoms or risks identified at this time. Care prior to arrival: Medication(s) given: Normal saline infusion, 1000 mL, Atropine 0.5 mg x 2 IV initiated. 18 GA, in the left antecubital area, Glucose check: 406. Historical: - Allergies: 09:06 No Known Allergies; sv - PMHx: 09:06 Back pain; Sleep Apnea; Hypertension; Diabetes - NIDDM; COPD; sv - PSHx: 09:06 Cholecystectomy; sv - Immunization history:: Adult Immunizations up to date, Client reports receiving the 2nd dose of the Covid vaccine. - Family history:: not pertinent. - Social history:: Smoking status: Patient denies any tobacco usage or history of. - Hospitalizations: : No recent hospitalization is reported. Screenin:05 Abuse screen: Denies threats or abuse. Denies injuries from another. Nutritional jl7 screening: No deficits noted. Tuberculosis screening: No symptoms or risk factors identified. Fall Risk IV access (20 points). Total [place] Fall Scale indicates No Risk (0-24 pts). Assessment: 09:05 General: Appears in no apparent distress. uncomfortable, Behavior is calm, cooperative, jl7 appropriate for age. Pain: Denies pain. Neuro: Level of Consciousness is awake, alert, obeys commands, Oriented to person, place, time, situation. Cardiovascular: Heart tones present Patient's skin is warm and dry. Rhythm is sinus rhythm. Respiratory: Airway is patent Respiratory effort is even, unlabored, Respiratory pattern is regular, symmetrical. GI: Abdomen is round non-distended, Patient currently denies abdominal pain, diarrhea, nausea, vomiting. Derm: Skin is pink, warm \T\ dry. 09:30 Reassessment: Pt reports inability to provide urine sample at this time, will provide jl7 one when he is able to. 10:00 Reassessment: Patient appears in no apparent distress at this time. No changes from jl7 previously documented assessment. Patient and/or family updated on plan of care and expected duration. Pain level reassessed. Patient is alert, oriented x 3, equal unlabored respirations, skin warm/dry/pink. 11:00 Reassessment: Patient appears in no apparent distress at this time. No changes from jl7 previously documented assessment. Patient and/or family updated on plan of care and expected duration. Pain level reassessed. Patient is alert, oriented x 3, equal unlabored respirations, skin warm/dry/pink. 11:50 Reassessment: Dr. Christianson at bedside discussing results and POC. jl7 Vital Signs: 08:55 BP 128 / 60 LA (auto/reg); Pulse 77; Resp 16; Temp 98.2; Pulse Ox 97% ; Weight 86.18 sv kg; Height 5 ft. 7 in. (170.18 cm); Pain 0/10; 09:07 BP 104 / 57 RA (auto/reg); sv 09:30 BP 112 / 57; Pulse 70; Resp 15; Pulse Ox 91% ; jl7 09:45 BP 118 / 64; Pulse 69; Resp 17; Pulse Ox 93% ; jl7 10:00 BP 122 / 70; Pulse 68; Resp 16; Pulse Ox 92% ; jl7 10:15 BP 126 / 69; Pulse 69; Resp 15; Pulse Ox 97% ; jl7 10:45 BP 130 / 75; Pulse 75; Resp 18; Pulse Ox 96% ; jl7 11:05 BP 122 / 61; Pulse 76; Resp 19; Pulse Ox 95% ; jl7 08:55 Body Mass Index 29.76 (86.18 kg, 170.18 cm) sv [place] Coma Score: 09:22 Eye Response: spontaneous(4). Verbal Response: oriented(5). Motor Response: obeys rn commands(6). Total: 15. NIH Stroke Scale Scores: 09:22 NIHSS Score: 0 regulatory attorney Course: 08:57 monitoring coordinator on. Pulse ox on. NIBP on. sv 09:01 EKG done, by ED staff, reviewed by Tarik Christianson MD. sv 09:02 Patient arrived in ED. sv 09:05 Jhon aWrd, KILO is PHCP. pm1 09:05 Tarik Christianson MD is Attending Physician. pm1 09:05 Patient has correct armband on for positive identification. Placed in gown. Bed in low jl7 position. Call light in reach. Side rails up X2. 09:06 Triage completed. sv 09:07 Arm band placed on. sv 09:08 Maintain EMS IV. Dressing intact. Site clean \T\ dry. Gauge \T\ site: 18G LAC. sv 09:19 Linwood Chavis, RN is Primary Nurse. jl7 09:25 X-ray completed. Portable x-ray completed in exam room. Patient tolerated procedure sw well. 09:26 XRAY Chest (1 view) In Process Unspecified. EDMS 09:26 Initial lab(s) drawn, by me, sent to lab. em1 09:27 Lactate Sent. em1 09:35 First set of blood cultures drawn by me. Missed attempt(s): 20 gauge in right wrist. jl7 Bleeding controlled, band aid applied, catheter tip intact. 09:43 Second set of blood cultures drawn. Missed attempt(s): 20 gauge in left antecubital jl7 area. Bleeding controlled, band aid applied, catheter tip intact. 10:04 Basic Metabolic Panel Sent. jl7 10:04 Glucose Sent. jl7 10:38 CT Aorta for Dissection In Process Unspecified. EDMS 12:00 Jesse Wilder MD is Referral Physician. rn 12:13 No provider procedures requiring assistance completed. IV discontinued, intact, jl7 bleeding controlled, No redness/swelling at site. Pressure dressing applied. Administered Medications: 09:30 Drug: NS 0.9% 1000 ml Route: IV; Rate: 1000 ml; Site: left antecubital; jl7 11:00 Follow up: Response: No adverse reaction; IV Status: Completed infusion; IV Intake: jl7 1000ml 10:50 Drug: Insulin Regular Human 10 units {Co-Signature: ben (Vivienne Walden RN).} Route: jl7 Sub-Q; Site: right upper arm; 11:50 Follow up: Response: No adverse reaction; Blood sugar is lowered jl7 Intake: 11:00 IV: 1000ml; Total: 1000ml. jl7 Outcome: 12:13 AMA AMA form signed jl7 12:13 Patient left the ED. jl7 NIH Stroke Scale - NIH Stroke Score Date: 04/05/2021 Time: 09:22 Total Score = 0 1a. Level of Consciousness (LOC) - 0(Alert) 1b. Level of Consciousness (LOC) (Year \T\ Age) - 0(Both) 1c. LOC Commands (Open \T\ Closes Eyes/Wiring Technician) - 0(Both) 2. Best Gaze (Lateral Gaze Paresis) - 0(Normal) 3. Visual Field Loss - 0(No visual loss) 4. Facial Palsy - 0(Normal) 5a. Left Arm: Motor (10-second hold) - 0(No drift) 5b. Right Arm: Motor (10-second hold) - 0(No drift) 6a. Left Leg: Motor (5-second hold - always test supine) - 0(No drift) 6b. Right Leg: Motor (5-second hold - always test supine) - 0(No drift) 7. Limb Ataxia (finger/nose \T\ heel/marlow - test with eyes open) - 0(Absent) 8. Sensory Loss (pinprick arms/legs/face) - 0(Normal) 9. Best Language: Aphasia (description/naming/reading) - 0(No aphasia) 10. Dysarthria (speech clarity - read or repeat words) - 0(Normal) 11. Extinction and Inattention (visual/tactile/auditory/spatial/personal) - 0(No abnormality) Initials: rn Signatures: Dispatcher [employer] Tata Mcdowell RN RN sv Tarik Christianson MD MD rn Martinez, Eric em1 Sweetie Russell Patrick, NP COFFEE SAMPLER pm1 Linwood Chavis RN RN jl7 Vivienne Walden RN ph Corrections: (The following items were deleted from the chart) 09:07 08:55 Chief complaint: EMS states: called out by 's office for pt not feeling sv well, bradycardia, and hypotension. Pt went to PCP today to get an abscess checked out of the left side. On EMS arrival SBP 80s, HR-45-50s Atropine 0.5 mg IVP x 2 given, NS bolus started. 18G LAC. Pt was pale and needed some sternal rub initially to wake him. sv 09:07 08:55 BP 128 / 60; Pulse 77bpm; Resp 16bpm; Pulse Ox 97%; Temp 98.2F; 86.18 kg; sv Height 5 ft. 7 in.; BMI: 29.7; Pain 0/10; sv 09:07 08:55 BP 128 / 60 Auto R Arm Regular; Pulse 77bpm; Resp 16bpm; Pulse Ox 97%; sv Temp 98.2F; 86.18 kg; Height 5 ft. 7 in.; BMI: 29.7; Pain 0/10; sv
--- NOTE | 2021-04-05 12:00 | EDPHYS ---
Physician Documentation [facility] Name: Jhon Long Age: 70 yrs Sex: Male : 1950 Arrival Date: 04/05/2021 Time: 09:02 Bed 3 Private MD: ED Physician Tarik Christianson HPI: 04/05 09:18 This 70 yrs old Male presents to ER via EMS with complaints of High Blood rn Sugar, Hypotension/Bradycardia. 09:18 EMS reports picked patient up at dermatology clinic for decreased responsiveness, rn hypotension, bradycardia, hyperglycemia. Required sternal rub to wake up, non-palpable radial pulse, given atropine x 2 for narrow bradycardia, given IV fluids, and patient has improved. Patient denies chest pain/sob/abd pain/dizziness. Reports takes several pain medications for injured shoulder, also takes "heart medications" but doesn't know which ones. Has not felt ill. No hx of slow heart rate or pacemaker. Sitting upright and feels normal right now.. Onset: The symptoms/episode began/occurred at an unknown time. Severity of symptoms: At their worst the symptoms were moderate in the emergency department the symptoms have improved. The patient has not experienced similar symptoms in the past. The patient has been recently seen by a physician:. Historical: - Allergies: 09:06 No Known Allergies; sv - PMHx: 09:06 Back pain; Sleep Apnea; Hypertension; Diabetes - NIDDM; COPD; sv - PSHx: 09:06 Cholecystectomy; sv - Immunization history:: Adult Immunizations up to date, Client reports receiving the 2nd dose of the Covid vaccine. - Family history:: not pertinent. - Social history:: Smoking status: Patient denies any tobacco usage or history of. - Hospitalizations: : No recent hospitalization is reported. ROS: 09:18 Constitutional: Negative for fever, chills, and weight loss, Eyes: Negative for injury, rn pain, redness, and discharge, Neck: Negative for injury, pain, and swelling, Cardiovascular: Negative for chest pain, palpitations, and edema, Respiratory: Negative for shortness of breath, cough, wheezing, and pleuritic chest pain, Abdomen/GI: Negative for abdominal pain, nausea, vomiting, diarrhea, and constipation, Back: Negative for injury and pain, : Negative for injury, bleeding, discharge, and swelling, MS/Extremity: Negative for injury and deformity, Skin: Negative for injury, rash, and discoloration, Neuro: Negative for headache, weakness, numbness, tingling, and seizure. 09:22 All other systems are negative. rn Exam: 09:18 Constitutional: This is a well developed, well nourished patient who is awake, alert, rn and in no acute distress. Head/Face: Normocephalic, atraumatic. Eyes: Periorbital areas with no swelling, redness, or edema. ENT: dry MM Cardiovascular: Regular rate and rhythm. No pulse deficits. Respiratory: No increased work of breathing, no retractions or nasal flaring. Abdomen/GI: soft, non-tender Skin: Warm, dry MS/ Extremity: Pulses equal, no cyanosis. Neurovascular intact. Full, normal range of motion. Equal circumference. Neuro: Awake and alert, GCS 15, oriented to person, place, time, and situation. Cranial nerves II-XII grossly intact. Motor strength 5/5 in all extremities. Sensory grossly intact. Cerebellar exam normal. 09:39 ECG was reviewed by the Attending Physician. rn Vital Signs: 08:55 BP 128 / 60 LA (auto/reg); Pulse 77; Resp 16; Temp 98.2; Pulse Ox 97% ; Weight 86.18 sv kg; Height 5 ft. 7 in. (170.18 cm); Pain 0/10; 09:07 BP 104 / 57 RA (auto/reg); sv 09:30 BP 112 / 57; Pulse 70; Resp 15; Pulse Ox 91% ; jl7 09:45 BP 118 / 64; Pulse 69; Resp 17; Pulse Ox 93% ; jl7 10:00 BP 122 / 70; Pulse 68; Resp 16; Pulse Ox 92% ; jl7 10:15 BP 126 / 69; Pulse 69; Resp 15; Pulse Ox 97% ; jl7 10:45 BP 130 / 75; Pulse 75; Resp 18; Pulse Ox 96% ; jl7 11:05 BP 122 / 61; Pulse 76; Resp 19; Pulse Ox 95% ; jl7 08:55 Body Mass Index 29.76 (86.18 kg, 170.18 cm) sv NIH Stroke Scale Scores: : NIHSS Score: 0 rn [place] Coma Score: :22 Eye Response: spontaneous(4). Verbal Response: oriented(5). Motor Response: obeys rn commands(6). Total: 15. MDM: 09:06 Patient medically screened. rn 11:58 Differential Diagnosis symptomatic bradycardia, sepsis, dehydration, medication rn overdose, medication side effect. . Data reviewed: vital signs, nurses notes, lab test result(s), EKG, radiologic studies, CT scan, and as a result, I will admit patient. Counseling: I had a detailed discussion with the patient and/or guardian regarding: the historical points, exam findings, and any diagnostic results supporting the discharge/admit diagnosis, lab results, radiology results, the need for further work-up and treatment in the hospital. Response to treatment: the patient's symptoms have markedly improved after treatment, the patient's condition has returned to base line, the patient is now symptom free, and as a result, I will admit patient. Refusal of service: The patient/guardian displays adequate decision making capability and despite a detailed discussion of alternatives, benefits, risks, and consequences refuses: Admission to the hospital for further work-up and treatment. ED course: Spoke with patient, told him we need to admit given no clear etiology of what happened but concerned may be cardiac in nature, patient valle snot want to be admitted, refuses admission, signing out AMA. Return precautions explained and risks of DC explained.. 04/05 09:08 Order name: Basic Metabolic Panel rn 04/05 09:08 Order name: CBC with Diff; Complete Time: 09:52 rn 04/05 09:08 Order name: LFT's; Complete Time: 10:23 rn 04/05 09:08 Order name: Magnesium; Complete Time: 10:23 rn 04/05 09:08 Order name: NT PRO-BNP; Complete Time: 10:23 rn 04/05 09:08 Order name: PT-INR; Complete Time: 09:52 rn 04/05 09:08 Order name: Troponin (emerg Dept Use Only); Complete Time: 10:23 rn 04/05 09:08 Order name: Blood Culture Adult (2) rn 04/05 09:08 Order name: Procalcitonin; Complete Time: 11:49 rn 04/05 09:08 Order name: Lactate; Complete Time: 10:23 rn 04/05 09:08 Order name: Basic Metabolic Panel; Complete Time: 10:23 EDMS 04/05 09:22 Order name: Glucose ph 04/05 09:23 Order name: Glucose Level; Complete Time: 10:23 EDMS 04/05 09:08 Order name: XRAY Chest (1 view); Complete Time: 10:23 rn 04/05 09:08 Order name: EKG; Complete Time: 09:09 rn 04/05 09:08 Order name: Cardiac monitoring; Complete Time: 09:49 rn 04/05 09:08 Order name: EKG - Nurse/Tech; Complete Time: 09:49 rn 04/05 09:08 Order name: IV Saline Lock; Complete Time: 09:48 rn 04/05 09:08 Order name: Labs collected and sent; Complete Time: 09:48 rn 04/05 09:08 Order name: O2 Per Protocol; Complete Time: 09:48 rn 04/05 09:08 Order name: O2 Sat Monitoring; Complete Time: 09:48 rn 04/05 09:18 Order name: CT Aorta for Dissection; Complete Time: 11:20 rn 04/05 09:33 Order name: Glucose, Ancillary Testing EDMS 04/05 09:34 Order name: Glucose, Ancillary Testing; Complete Time: 09:52 EDMS 04/05 11:03 Order name: SARS-COV-2 RT PCR; Complete Time: 11:20 EDMS 04/05 11:51 Order name: Glucose, Ancillary Testing EDMS 04/05 09:08 Order name: Glucose Level; Complete Time: 09:49 rn EC:39 Rate is 75 beats/min. Rhythm is regular. QRS [place] is Normal. HI interval is normal. QRS rn interval is normal. QT interval is normal. No Q waves. T waves are Normal. No ST changes noted. Clinical impression: NSR w/ Non-specific ST/T Changes. Interpreted by me. Reviewed by me. Administered Medications: 09:30 Drug: NS 0.9% 1000 ml Route: IV; Rate: 1000 ml; Site: left antecubital; jl7 11:00 Follow up: Response: No adverse reaction; IV Status: Completed infusion; IV Intake: jl7 1000ml 10:50 Drug: Insulin Regular Human 10 units {Co-Signature: ph (Vivienne Walden RN).} Route: jl7 Sub-Q; Site: right upper arm; 11:50 Follow up: Response: No adverse reaction; Blood sugar is lowered jl7 Disposition: 04/05/21 12:00 Patient has left against medical advice. Impression: Hypotension, unspecified, Bradycardia, unspecified. - Patients states they are going to Home. - Condition is Stable. - Discharge Instructions: Bradycardia, Adult, Hypotension, Near-Syncope. Follow up: Jesse Wilder MD; When: As needed; Reason: Recheck today's complaints, Re-evaluation by your physician. - Problem is new. - Symptoms have improved. NIH Stroke Scale - NIH Stroke Score Date: 04/05/2021 Time: : Total Score = 0 1a. Level of Consciousness (LOC) - 0(Alert) 1b. Level of Consciousness (LOC) (Year \\T\\ Age) - 0(Both) 1c. LOC Commands (Open \\T\\ Closes Eyes/Drainage Engineer) - 0(Both) 2. Best Gaze (Lateral Gaze Paresis) - 0(Normal) 3. Visual Field Loss - 0(No visual loss) 4. Facial Palsy - 0(Normal) 5a. Left Arm: Motor (10-second hold) - 0(No drift) 5b. Right Arm: Motor (10-second hold) - 0(No drift) 6a. Left Leg: Motor (5-second hold - always test supine) - 0(No drift) 6b. Right Leg: Motor (5-second hold - always test supine) - 0(No drift) 7. Limb Ataxia (finger/nose \\T\\ heel/marlow - test with eyes open) - 0(Absent) 8. Sensory Loss (pinprick arms/legs/face) - 0(Normal) 9. Best Language: Aphasia (description/naming/reading) - 0(No aphasia) 10. Dysarthria (speech clarity - read or repeat words) - 0(Normal) 11. Extinction and Inattention (visual/tactile/auditory/spatial/personal) - 0(No abnormality) Initials: rn Signatures: Dispatcher [employer] Tata Mcdowell RN RN sv Nieto, Roman, MD MD rn Leal, Jahala, RN RN jl7 Vivienne Walden RN ph Corrections: (The following items were deleted from the chart) 10:00 09:38 CORONAVIRUS+MR.LAB.BRZ ordered. EDSC EDMS 12:13 12:00 04/05/2021 12:00 Patients has left against medical advice. Impression: jl7 Hypotension, unspecified; Bradycardia, unspecified. Patient states they are going to Home. Condition is Stable. Follow up: Jesse Wilder; When: As needed; Reason: Recheck today's complaints, Re-evaluation by your physician. Problem is new. Symptoms have improved. rn
[2021-04-05 12:29] VITALS: BP 122/61; O2SAT 95
== END 2021-04-05 12:13 | disposition left against medical advice (07) ==
LOC: ER 09:00
DX: I95.9 Hypotension, unspecified (principal); R00.1 Bradycardia, unspecified; Z53.29 Procedure and treatment not carried out because of patient's decision for other reasons; Z20.822 Contact with and (suspected) exposure to COVID-19; E11.9 Type 2 diabetes mellitus without complications; J44.9 Chronic obstructive pulmonary disease, unspecified; I10 Essential (primary) hypertension; G47.30 Sleep apnea, unspecified
CPT/HCPCS: 93005; 87040 ×2; 85025; 80048; 36415; 83735; 82947 ×3; 85610; 80076; 83605; 84484; 84145; 83880; 71275; 74175; 71045; 96360; 96372; 99284; U0003; Q9967

== ENCOUNTER 2021-05-19 12:49 | Emergency (ER) | payer OTHER, BC ==
--- OUTSIDE RECORDS SUMMARY | 2021-05-19 12:52 | XMS REPORT | Continuity of Care Document ---
:1950 Author Organization [facility] t Address [address] [place] [address] Care Team Providers Name Role Phone MERON Attending Clinician Unavailable HO Attending Clinician Unavailable MERON Attending Clinician Unavailable Payers Payer Name Policy Type Policy Number Effective Date Expiration Date S [facility] [place], [place] MEDICARE PART A [id number] 2016 AND B 00:00:00 Problems Condition Condition Condition Status Onset Resolution [...] - 50 MG HCl - 50 MG 1-26 STANO [place] ARCHITECT EVERY SIX ity of Oral Tablet Oral Tablet 00:00: HOURS PRN [place] 00 PAIN Physici ans Procedures Procedure Date / Time Performed Performing Clinician Sour e Post Op Promis 2021-02-09 00:00:00 [facility] Survey Physicians Encounters Start End Encounter Admission Attending Care Care Encounter Source Date/Time Date/Time Type Type Clinicians Facility Department ID 2021-05-11 Outpatient [facility] [id number] [place] 11:49:48 [facility] 2021-05-11 [facility] [id number] [place] 10:56:37 [facility] 2021-03-06 Outpatient MERON [facility] [id number] [place] 03:26:35 [facility] 2021-05-11 2021-05-11 Office LEVON Khanna [id number] 10:56:22 11:49:54 Visit Michael BREWER [id number] 2021-01-19 2021-01-19 AppointLEVON Little[facility] [id number] Univers 11:45:00 11:45:00 t; STANO, ZEHRA, [facility] 2020-12-24 2020-12-24 AppointLEVON Littlejohn [id number] Univers 14:45:00 14:45:00 t; STANO, ZEHRA, [facility], [facility] 2020-12-08 2020-12-08 Appoint[facility] Littlejohn [facility] [id number] Univers 10:45:00 10:45:00 t; STANO, ZEHRA, ity [facility] [place], [facility] 2020-11-24 2020-11-24 AppointLEVON Littlejohn [facility] [id number] Univers 08:45:00 08:45:00 t; STANO, ZEHRA, ity [facility] [place], [facility] 2020-11-14 2020-11-14 AppointLEVON Mcguire [facility] [id number] Univers 07:00:00 07:00:00 t; Caroline WADDELL itSukhdeep Alston M.D. Physi ci ans Results This patient has no known results.
[2021-05-19 13:35] LABS: Urine Blood Negative (Negative); Urine Glucose 2+ (Negative); Urine Protein Negative (Negative); Urine Specific Gravity 1.015 (1.005-1.030); Urine pH 6.5 (5.0-7.0)
[2021-05-19 13:52] LABS: Absolute Lymphocytes (CBC) 1.7 K/uL (0.7-4.9); Basophils % 0.9 % (0-1.3); Hematocrit 37.4 % (39.6-49.0); Lymphocytes % 24.3 % (15.3-44.8); MPV 7.8 fL (7.6-11.3); RBC Red Blood Cell Count 4.16 M/uL (4.33-5.43)
--- NOTE | 2021-05-19 13:58 | RAD REPORT ---
EXAM DESCRIPTION: RAD - Lumbar Spine 3 Views - 05/19/2021 1:47 pm CLINICAL HISTORY: PAIN COMPARISON: LUMBAR SPINE 3 VIEWS dated 01/24/2014 FINDINGS: No fracture or malalignment of the lumbar spine is identified. Minimal endplate spurring b ut the disc heights are well maintained. Surgical clips are present in the right upper quadrant. IMPRESSION: No acute fracture or malalignment of the lumbar spine. Minimal degenerative changes as n oted above.
[2021-05-19] MEDS ORDERED: KETOROLAC 30 MG/ML INJ ONE (14:00)
[2021-05-19] MEDS ORDERED: CYCLOBENZAPRINE 10 MG TAB ONE (14:00)
[2021-05-19 14:01] LABS: Albumin 4.2 g/dL (3.4-5.0); Bilirubin Direct 0.1 mg/dL (0-0.2); Bilirubin Total 0.5 mg/dL (0.2-1.0); Potassium 3.4 mmol/L (3.5-5.1); Protein, Total 7.8 g/dL (6.4-8.2)
--- NOTE | 2021-05-19 14:14 | EDPHYS ---
Physician Documentation [facility] Name: Jhon Long Age: 70 yrs Sex: Male : 1950 Arrival Date: 05/19/2021 Time: 12:53 Bed 17 Private MD: ED Physician Leland Smiley HPI: 05/19 14:08 This 70 yrs old Male presents to ER via EMS with complaints of back pain, ma2 started after he was bending and lefting heavy stuff and working while bended, . 14:08 Onset: The symptoms/episode began/occurred gradually, 1 day(s) ago. Associated signs ma2 and symptoms: Pertinent negatives: chest pain, constipation, dysuria, fever, headache, hematuria, incontinence, nausea, numbness, tingling, urinary retention, vomiting, weakness. Severity of symptoms: At their worst the symptoms were mild, in the emergency department the symptoms are unchanged. The patient has experienced a previous episode. Historical: - Allergies: 12:57 No Known Allergies; ld1 - Home Meds: 12:57 benzonatate 200 mg Oral cap [Active]; Cartia XT 240 mg Oral cp24 1 cap once daily ld1 [Active]; celecoxib 200 mg Oral cap 1 cap once daily [Active]; CPAP machine [Active]; gabapentin 600 mg Oral tab [Active]; glimepiride 2 mg Oral tab 2 tabs once daily [Active]; hydralazine 50 mg Oral tab 1 tab 2 times per day [Active]; hydrochlorothiazide 12.5 mg Oral cap 1 cap once daily [Active]; losartan 100 mg Oral tab 1 tab once daily [Active]; losartan-hydrochlorothiazide 100-12.5 mg Oral tab 1 tab once daily [Active]; meloxicam 15 mg Oral tab 1 tab once daily [Active]; metformin 1,000 mg Oral tab 2 times per day [Active]; tizanidine 4 mg Oral cap [Active]; Tramadol Oral [Active]; - PMHx: 12:57 Back pain; COPD; Diabetes - NIDDM; Sleep Apnea; Hypertension; Hypertensive disorder; ld1 Diabetes mellitus; - Immunization history:: Adult Immunizations up to date, Client reports receiving the 2nd dose of the Covid vaccine. - Social history:: Smoking status: Patient denies any tobacco usage or history of. - Family history:: not pertinent. ROS: 14:08 Constitutional: Negative for fever, chills, and weight loss. ma2 14:08 All other systems are negative. Exam: 14:08 Constitutional: This is a well developed, well nourished patient who is awake, alert, ma2 and in no acute distress. Head/Face: Normocephalic, atraumatic. Eyes: Pupils equal round and reactive to light, extra-ocular motions intact. Lids and lashes normal. Conjunctiva and sclera are non-icteric and not injected. Cornea within normal limits. Periorbital areas with no swelling, redness, or edema. ENT: Nares patent. No nasal discharge, no septal abnormalities noted. Tympanic membranes are normal and external auditory canals are clear. Oropharynx with no redness, swelling, or masses, exudates, or evidence of obstruction, uvula midline. Mucous membranes moist. Neck: Trachea midline, no thyromegaly or masses palpated, and no cervical lymphadenopathy. Supple, full range of motion without nuchal rigidity, or vertebral point tenderness. No Meningismus. Chest/axilla: Normal chest wall appearance and motion. Nontender with no deformity. No lesions are appreciated. Cardiovascular: Regular rate and rhythm with a normal S1 and S2. No gallops, murmurs, or rubs. Normal PMI, no JVD. No pulse deficits. Respiratory: Lungs have equal breath sounds bilaterally, clear to auscultation and percussion. No rales, rhonchi or wheezes noted. No increased work of breathing, no retractions or nasal flaring. Abdomen/GI: Soft, non-tender, with normal bowel sounds. No distension or tympany. No guarding or rebound. No evidence of tenderness throughout. Back: has left paraspinal muscle sprain No spinal tenderness. No costovertebral tenderness. Full range of motion. Skin: Warm, dry with normal turgor. Normal color with no rashes, no lesions, and no evidence of cellulitis. MS/ Extremity: Pulses equal, no cyanosis. Neurovascular intact. Full, normal range of motion. Neuro: Awake and alert, GCS 15, oriented to person, place, time, and situation. Cranial nerves II-XII grossly intact. Motor strength 5/5 in all extremities. Sensory grossly intact. Cerebellar exam normal. Normal gait. Vital Signs: 12:54 BP 104 / 78; Pulse 83; Resp 18; Temp 98.4(O); Pulse Ox 97% on R/A; Weight 92.53 kg; ld1 Height 5 ft. 9 in. (175.26 cm); Pain 5/10; 14:45 BP 119 / 71; Pulse 80; Resp 17; Pulse Ox 96% on R/A; ll1 12:54 Body Mass Index 30.13 (92.53 kg, 175.26 cm) ld1 MDM: 13:02 Patient medically screened. ma2 14:08 Differential diagnosis: Fatigue Fracture Ligament Injury Osteoarthritis sprain, ma2 vertebral fracture. Data reviewed: vital signs, nurses notes. Counseling: I had a detailed discussion with the patient and/or guardian regarding: the historical points, exam findings, and any diagnostic results supporting the discharge/admit diagnosis, the presence of at least one elevated blood pressure reading (>120/80) during this emergency department visit, the need for outpatient follow up. Response to treatment: the patient's symptoms have markedly improved after treatment. 05/19 13:19 Order name: Basic Metabolic Panel; Complete Time: 14:07 ma2 05/19 13:19 Order name: CBC with Diff; Complete Time: 14:07 ct2 05/19 13:19 Order name: Lumbar Spine (3 Views) XRAY; Complete Time: 14:07 ct2 05/19 13:19 Order name: Hepatic Function; Complete Time: 14:07 ma2 05/19 13:19 Order name: Lipase; Complete Time: 14:07 ct2 05/19 13:36 Order name: Urine Dipstick-Ancillary; Complete Time: 14:07 [facility] 05/19 13:19 Order name: IV Saline Lock; Complete Time: 13:20 ma2 05/19 13:19 Order name: Labs collected and sent; Complete Time: 13:20 ma2 05/19 13:19 Order name: Urine Dipstick-Ancillary (obtain specimen); Complete Time: 13:35 ma2 Administered Medications: 13:55 Drug: Flexeril (cyclobenzaprine) 10 mg Route: PO; ll1 14:46 Follow up: Response: No adverse reaction ll1 13:55 Drug: Ketorolac 30 mg Route: IVP; Site: right antecubital; ll1 14:46 Follow up: Response: No adverse reaction; Pain is decreased; RASS: Alert and Calm (0) ll1 Disposition Summary: 05/19/21 14:13 Discharge Ordered Location: Home ma2 Condition: Stable ma2 Diagnosis - Low back pain ma2 Followup: ma2 - With: Private Physician - When: Tomorrow - Reason: Continuance of care Discharge Instructions: - Discharge Summary Sheet ma2 - Acute Back Pain, Adult ma2 Forms: - Medication Reconciliation Form ma2 - Thank You Letter ma2 - Antibiotic Education ma2 - Prescription Opioid Use ma2 Prescriptions: - Cyclobenzaprine 10 mg Oral Tablet - take 1 tablet by ORAL route every 8 hours As needed; 30 tablet; Refills: 0, ma2 Product Selection Permitted - Diclofenac Sodium 75 mg Oral Tablet Sustained Release - take 1 tablet by ORAL route 2 times per day; 30 tablet; Refills: 0, Product ma2 Selection Permitted Signatures: Dispatcher [employer] EDLeland Welch MD MD ma2 Beryl Ring RN RN ll1 Jeana Lion RN RN ld1
--- NOTE | 2021-05-19 14:14 | ER ---
Nurse's Notes [facility] Name: Jhon Long Age: 70 yrs Sex: Male : 1950 Arrival Date: 05/19/2021 Time: 12:53 Bed 17 Private MD: Diagnosis: Low back pain Presentation: 05/19 12:54 Chief complaint: EMS states: toned out for left kidney flank pain since 1100. ld1 Coronavirus screen: At this time, the client does not indicate any symptoms associated with coronavirus-19. Ebola Screen: No symptoms or risks identified at this time. Initial Sepsis Screen: Does the patient meet any 2 criteria? No. Patient's initial sepsis screen is negative. Does the patient have a suspected source of infection? No. Patient's initial sepsis screen is negative. Risk Assessment: Do you want to hurt yourself or someone else? Patient reports no desire to harm self or others. Onset of symptoms was May 19, 2021. 12:54 Method Of Arrival: EMS: [facility] ld1 12:54 Acuity: LILIANE 3 ld1 Triage Assessment: 12:57 General: Appears in no apparent distress. comfortable, Behavior is calm, cooperative, ld1 appropriate for age. Pain: Complains of pain in left low back Pain does not radiate. Pain currently is 5 out of 10 on a pain scale. Quality of pain is described as throbbing, Pain began 1 hour ago. Is continuous. EENT: No signs and/or symptoms were reported regarding the EENT system. Neuro: Level of Consciousness is awake, alert, obeys commands, Oriented to person, place, time, situation. Cardiovascular: Capillary refill < 3 seconds Patient's skin is warm and dry. Respiratory: Airway is patent Respiratory effort is even, unlabored, Respiratory pattern is regular, symmetrical. GI: Abdomen is round non-distended. : No signs and/or symptoms were reported regarding the genitourinary system. Derm: No signs and/or symptoms reported regarding the dermatologic system. Musculoskeletal: No signs and/or symptoms reported regarding the musculoskeletal system. Historical: - Allergies: 12:57 No Known Allergies; ld1 - Home Meds: 12:57 benzonatate 200 mg Oral cap [Active]; Cartia XT 240 mg Oral cp24 1 cap once daily ld1 [Active]; celecoxib 200 mg Oral cap 1 cap once daily [Active]; CPAP machine [Active]; gabapentin 600 mg Oral tab [Active]; glimepiride 2 mg Oral tab 2 tabs once daily [Active]; hydralazine 50 mg Oral tab 1 tab 2 times per day [Active]; hydrochlorothiazide 12.5 mg Oral cap 1 cap once daily [Active]; losartan 100 mg Oral tab 1 tab once daily [Active]; losartan-hydrochlorothiazide 100-12.5 mg Oral tab 1 tab once daily [Active]; meloxicam 15 mg Oral tab 1 tab once daily [Active]; metformin 1,000 mg Oral tab 2 times per day [Active]; tizanidine 4 mg Oral cap [Active]; Tramadol Oral [Active]; - PMHx: 12:57 Back pain; COPD; Diabetes - NIDDM; Sleep Apnea; Hypertension; Hypertensive disorder; ld1 Diabetes mellitus; - Immunization history:: Adult Immunizations up to date, Client reports receiving the 2nd dose of the Covid vaccine. - Social history:: Smoking status: Patient denies any tobacco usage or history of. - Family history:: not pertinent. Screenin:00 Abuse screen: Denies threats or abuse. Denies injuries from another. Nutritional ld1 screening: No deficits noted. Tuberculosis screening: No symptoms or risk factors identified. Fall Risk None identified. Assessment: 13:00 Reassessment: See triage assessment. ld1 14:00 Reassessment: No changes from previously documented assessment. Patient and/or family ll1 updated on plan of care and expected duration. Pain level reassessed. Patient is alert, oriented x 3, equal unlabored respirations, skin warm/dry/pink. 14:46 Reassessment: No changes from previously documented assessment. Patient and/or family ll1 updated on plan of care and expected duration. Pain level reassessed. Patient is alert, oriented x 3, equal unlabored respirations, skin warm/dry/pink. Patient states feeling better. Vital Signs: 12:54 BP 104 / 78; Pulse 83; Resp 18; Temp 98.4(O); Pulse Ox 97% on R/A; Weight 92.53 kg; ld1 Height 5 ft. 9 in. (175.26 cm); Pain 5/10; 14:45 BP 119 / 71; Pulse 80; Resp 17; Pulse Ox 96% on R/A; ll1 12:54 Body Mass Index 30.13 (92.53 kg, 175.26 cm) ld1 ED Course: 12:53 Patient arrived in ED. ld1 12:55 Jeana Lion, RN is Primary Nurse. ld1 12:55 Arm band placed on Patient placed in an exam room, on a stretcher. ld1 12:57 Triage completed. ld1 13:00 Patient has correct armband on for positive identification. Placed in gown. Bed in low ld1 position. Call light in reach. Side rails up X2. youth nutritional monitor on. Pulse ox on. NIBP on. Door closed. Noise minimized. Warm blanket given. 13:02 Leland Smiley MD is Attending Physician. ma2 13:25 Inserted saline lock: 22 gauge in right antecubital area, using aseptic technique. ll1 Blood collected. 13:47 Lumbar Spine (3 Views) XRAY In Process Unspecified. EDMS 14:44 No provider procedures requiring assistance completed. IV discontinued, intact, ll1 bleeding controlled, No redness/swelling at site. Pressure dressing applied. Administered Medications: 13:55 Drug: Flexeril (cyclobenzaprine) 10 mg Route: PO; ll1 14:46 Follow up: Response: No adverse reaction ll1 13:55 Drug: Ketorolac 30 mg Route: IVP; Site: right antecubital; ll1 14:46 Follow up: Response: No adverse reaction; Pain is decreased; RASS: Alert and Calm (0) 1 Outcome: 14:13 Discharge ordered by . ma2 14:45 Discharged to home ambulatory. ll1 14:45 Condition: stable 14:45 Discharge instructions given to patient, Instructed on discharge instructions, follow up and referral plans. no drinking with medication, no driving heavy equipment, medication usage, Demonstrated understanding of instructions, follow-up care, medications, Prescriptions given X 2. 14:46 Patient left the ED. 1 Signatures: Dispatcher [employer] EDMS Leland Smiley MD MD ma2 Beryl Ring RN RN 1 Jeana Lion, RN RN 1
[2021-05-19 14:53] VITALS: TEMP 98.4
[2021-05-19 14:54] VITALS: BP 119/71; O2SAT 96
== END 2021-05-19 14:46 | disposition home or self-care (01) ==
LOC: ER 12:49
DX: M54.5 Low back pain (principal); I10 Essential (primary) hypertension; E11.9 Type 2 diabetes mellitus without complications; J44.9 Chronic obstructive pulmonary disease, unspecified
CPT/HCPCS: 36415; 72100; 80048; 80076; 81003; 83690; 85025; 96374; 99284

== ENCOUNTER 2021-06-04 09:31 | Day surgery (SDC) | payer OTHER, BC ==
[2021-06-04] MEDS ORDERED: NA CHLORIDE 0.9% 1,000 ML ONE (10:11)
[2021-06-04] MEDS: LIDOCAINE 1% W/EPI 1:100,000 MDV 20 ML VIAL ONE ×2 (10:57→13:18)
[2021-06-04] MEDS ORDERED: FENTANYL CITR 100 MCG/2 ML ONE (13:10)
[2021-06-04] MEDS ORDERED: propofoL 200 MG/20 ML VIAL IV ONE (13:10)
[2021-06-04] MEDS ORDERED: ONDANSETRON 4 MG/2 ML VIAL ONE (13:11)
[2021-06-04] MEDS ORDERED: LIDOCAINE 2% MPF 5 ML VIAL ONE (13:11)
--- NOTE | 2021-06-04 14:17 | P.BOP ---
Preoperative diagnosis: neoplasm uncertain R lower eye lid Postoperative diagnosis: BCC Primary procedure: excision with local tissue rearrangement Damaged Freight Inspector: NONE,NONE Estimated blood loss: 5ml Specimen: R lower eye lid, frozen section, suture 12 oclock/superior Findings: negative margins Anesthesia: General Complications: None Implants: none Fluids & blood products: crystalloid 800ml Transferred to: Recovery Room Condition: Good
[2021-06-04 16:50] VITALS: BP 132/73; TEMP 97.5; O2SAT 98
--- NOTE | 2021-06-05 22:26 | OP ---
Date of Procedure: 06/04/2021 Surgeon: Tata Vazquez MD Building Rental Manager: None. Preoperative Diagnosis: Neoplasm of uncertain behavior, but suspicious for malignancy. Postoperative Diagnosis: Basal cell carcinoma with negative margins. Procedure: Wide local excision with frozen section for margins status and reconstruction via local t issue rearrangement. Indication For Procedure: Jhon Long was evaluated for hearing concerns in the ENT clinic. He w as noted to have a suspicious appearing lesion of the right lower eyelid, which had been present for a number of months with no prior evaluation or treatment. Due to its suspicious appearance for basal versus squamous cell carcinoma, recommendation for excision was made and given the location and need for reconstruction and frozen section analysis, the procedure was performed in the operating room. Anesthesia: General via LMA. Specimens: Right lower eyelid suture jeffrey, 12 o'clock/superior. Surgical Findings: Confirmed basal cell carcinoma with negative deep and peripheral margins. Surgic al defect of 1.5 x 1.5 cm with a local advancement flap for surgical closure to reduce risk of ectrop ion, excessive scarring, or other dysfunction of the eyelid. Procedure In Detail: The patient was brought to the operating room. He was placed under general ane sthesia via oral LMA. The face was prepped in a sterile fashion with Betadine and draped. The plann ed excision site and surrounding tissues were injected with 1% lidocaine with epinephrine to aid in h emostasis as well as postoperative pain control. The lesion was identified and was a raised flesh co lored nodule with central ulceration and friability. A 3-4 mm margin was designed circumferentially. The skin was incised using a 15-blade scalpel. A suture was placed at the superior most aspect of the specimen and it was elevated sharply using the scalpel from the underlying tissues. The specimen was sent to pathology for frozen section analysis and the defect was closely examined. The base of the defect included the muscle fibers of the orbicularis oculi. Gentle hemostasis using needlepoint Bovie cautery was obtained. The surrounding tissues were carefully undermined using the needlepoint Bovie and initial considerations for reconstruction were made. Given the mild laxity of the eyelid s kin, a decision was made for an advancement flap, but no incisions were made until the pathology resu lts were confirmed. I concurred intraoperatively with the pathologist regarding the specimen. She c onfirmed the lesion was a basal cell carcinoma with negative deep and peripheral margins. An attenti on was returned to the surgical defect for final planning and reconstruction. The right lower eyelid was advanced over the defect and a triangle of tissue, approximately 0.5 x 0.8 cm, was excised from the inferior aspect of the defect coinciding with the medial upper cheek, which allowed improved clos ure and after advancement of the tissue was secured, the advancement flap was secured using a 4-0 Arpit ryl suture. The skin was then closed using a plain gut suture in an interrupted fashion. The skin w as cleaned and dried. Triple antibiotic ointment was applied to the incision line and the patient wa s returned to care of anesthesia for awakening and extubation in the operating room, which proceeded without difficulty. Complications: None. Disposition: The patient will be discharged home later today in the care of his family and follow up with Dr. Vazquez in 7 to 14 days for wound evaluation and suture removal. RICHA/DESTINI Voice ID: [id number] Report ID: [id number]
== END 2021-06-04 15:40 | disposition home or self-care (01) ==
LOC: OR 09:31
PROVIDERS: ATTEND Otolaryngology
PROC: 0HX1XZZ Transfer Face Skin, External Approach (ICD-10-PCS; principal; 2021-06-04 10:45)
DX: C44.1122 Basal cell carcinoma of skin of right lower eyelid, including canthus (principal); Z20.822 Contact with and (suspected) exposure to COVID-19
CPT/HCPCS: 82947 ×2; 88331; 88332; 88305; 14060; U0002; J2704; J3010; J7030; J2405

== ENCOUNTER 2022-04-09 15:47 | Emergency (ER) | payer OTHER, BC ==
--- OUTSIDE RECORDS SUMMARY | 2022-04-09 15:50 | XMS REPORT | Continuity of Care Document ---
:1950 Author Organization [facility] t Address [address] [place] [address] Care Team Providers Name Role Phone Clement Herr Primary Care Physician Elizabeth Attending Clinician Unavailable MERON Attending Clinician Unavailable Silvia HDZ Attending Clinician SILVIA Attending Clinician Unavailable MERON Attending Clinician Unavailable Payers Payer Name Policy Type Policy Number Effective Date Expiration Date S ource MEDICARE PART A [id number] 2016 AND B 00:00:00 Problems Condition Condition Condition Status Onset Resolution Last Treating Co mments Source Name Details Category Date Date Treatment Clinician Date Laceration Laceration Disease Active [facility] of left of left 05-11 Health index index 00:00: finger finger 00 without without foreign foreign body body without without damage to damage to nail nail Laceration Laceration Disease Active [facility] of left of left 05-11 Health middle middle 00:00: finger finger 00 without without foreign foreign body body without without damage to damage to nail nail Partial Partial Disease Active [facility] traumatic traumatic 05-11 Heal th transphala transphala 00:00: ngeal ngeal 00 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 Social History Social Habit Start Date Stop Date Quantity Comments Source Exposure to Not sure [facility] SARS-CoV-2 (event) Alcohol intake 2021-09-07 2021-09-07 Lifetime [facility] 00:00:00 00:00:00 non-drinker (finding) Tobacco use and 2021-05-11 2021-05-11 Smokeless tobacco [facility] exposure 00:00:00 00:00:00 non-user Sex Assigned At [birth year] [facility] 00:00:00 00:00:00 Smoking Status Start Date Stop Date Source Never smoked tobacco [facility] Medications Ordered Filled Start Stop Current Ordering Indication Dosage Frequency Signature Comments Components Source Medication Medication Date Date Medication? Clinician (SIG) Name Name lidocaine 2020- No [id number] 1mL UT (Xylocaine) 07-22 [facility] 1 % 13:35: 13:35 injection 1 10 :00 mL triamcinolo 2020- No [id number] 20mg UT ne 07-22 [facility] Health acetonide 13:35: 13:35 (Kenalog-40 10 :00 ) injection 20 mg triamcinolo 2020- No [id number] 20mg 20 mg, UT ne 07-2207 [facility] acetonide 13:35: 13:35 cular, (Kenalog-40 10 :00 Once PRN ) injection Procedure, 20 mg Starting on Rajani 07/22/21 at 0835, For 1 dose lidocaine 2020- No [id number] 1mL 1 mL, UT (Xylocaine) 07-22 9107 Injection, H ealth 1 % 13:35: 13:35 Once PRN injection 1 10 :00 Procedure, mL Starting on Rajani 07/22/21 at 0835, For 1 dose lidocaine 2020- No [id number] 1mL UT (Xylocaine) 07-22 [facility] 1 % 13:35: 13:35 injection 1 10 :00 mL triamcinolo 2020- No [id number] 20mg UT ne 07-2207 Health acetonide 13:35: 13:35 (Kenalog-40 10 :00 ) injection 20 mg triamcinolo 2020- No [id number] 20mg 20 mg, UT ne 07-22 9107 [facility] acetonide 13:35: 13:35 cular, (Kenalog-40 10 :00 Once PRN ) injection Procedure, 20 mg Starting on Rajani 07/22/21 at 0835, For 1 dose lidocaine 2020- No [id number] 1mL 1 mL, UT (Xylocaine) 07-22 9107 Injection, H ealth 1 % 13:35: 13:35 Once PRN injection 1 10 :00 Procedure, mL Starting on Rajani 07/22/21 at 0835, For 1 dose lidocaine 2020- No [id number] 1mL UT (Xylocaine) 07-2207 Health 1 % 13:34: 13:34 injection 1 26 :00 mL triamcinolo 2020- No [id number] 20mg UT ne 07-2207 Health acetonide 13:34: 13:34 (Kenalog-40 26 :00 ) injection 20 mg triamcinolo 2020- No [id number] 20mg 20 mg, UT ne 07-2207 [facility] acetonide 13:34: 13:34 cular, (Kenalog-40 26 :00 Once PRN ) injection Procedure, 20 mg Starting on Rajani 07/22/21 at 0834, For 1 dose lidocaine No [id number] 1mL 1 mL, UT (Xylocaine) 07-22 9107 Injection, H ealth 1 % 13:34: 13:34 Once PRN injection 1 26 :00 Procedure, mL Starting on Rajani 07/22/21 at 0834, For 1 dose lidocaine 2020- No [id number] 1mL UT (Xylocaine) 07-22 9107 Health 1 % 13:34: 13:34 injection 1 26 :00 mL triamcinolo 2020- No [id number] 20mg UT ne 07-22 Health acetonide 13:34: 13:34 (Kenalog-40 26 :00 ) injection 20 mg triamcinolo 2020- No [id number] 20mg 20 mg, UT ne 07-22 [facility] acetonide 13:34: 13:34 cular, (Kenalog-40 26 :00 Once PRN ) injection Procedure, 20 mg Starting on Mon07/22/21 at 0834, For 1 dose lidocaine 2020- No [id number] 1mL 1 mL, UT (Xylocaine) 07-22 Injection, H ealth 1 % 13:34: 13:34 Once PRN injection 1 26 :00 Procedure, mL Starting on Mon07/22/21 at 0834, For 1 dose meloxicam Yes meloxicam UT (Mobic) 7.5 7-13 7.5 mg Health MG tablet 16:09: tablet 45 meloxicam 2020-0 Yes meloxicam UT (Mobic) 7.5 7-13 7.5 mg Health MG tablet 11:09: tablet 45 meloxicam 2020-0 Yes meloxicam UT (Mobic) 7.5 7-13 7.5 mg Health MG tablet 11:09: tablet 45 meloxicam 2020-0 Yes meloxicam UT (Mobic) 7.5 7-13 7.5 mg Health MG tablet 11:09: tablet 45 glimepiride 2020-0 Yes 4mg Q.5D Take 4 mg U T (Amaryl) 4 7-01 by mouth 2 Hea lth MG tablet 00:00: (two) 00 times a day. glimepiride 2021-0 Yes 4mg Q.5D Take 4 mg U T (Amaryl) 4 7-01 by mouth 2 Hea lth MG tablet 00:00: (two) 00 times a day. glimepiride 2021-0 Yes 4mg Q.5D Take 4 mg U T (Amaryl) 4 7-01 by mouth 2 Hea lth MG tablet 00:00: (two) 00 times a day. glimepiride 2021-0 Yes 4mg Q.5D Take 4 mg U T (Amaryl) 4 7-01 by mouth 2 Hea lth MG tablet 00:00: (two) 00 times a day. tiZANidine 2020-0 Yes 4mg Take 4 mg UT (Zanaflex) 5-24 by mouth Healt h 4 MG tablet 00:00: every 12 00 (twelve) hours if needed. tiZANidine 202-0 Yes 4mg Take 4 mg UT (Zanaflex) 5-24 by mouth Healt h 4 MG tablet 00:00: every 12 00 (twelve) hours if needed. tiZANidine 2021-0 Yes 4mg Take 4 mg UT (Zanaflex) 5-24 by mouth Healt h 4 MG tablet 00:00: every 12 00 (twelve) hours if needed. tiZANidine 2020-0 Yes 4mg Take 4 mg UT (Zanaflex) 5-24 by mouth Healt h 4 MG tablet 00:00: every 12 00 (twelve) hours if needed. traMADol 2020-0 Yes 50mg Take 50 mg UT (Ultram) 50 3-11 by mouth 1 He alth MG tablet 00:00: (one) time 00 each day if needed. traMADol 2020-0 Yes 50mg Take 50 mg UT (Ultram) 50 3-11 by mouth 1 He alth MG tablet 00:00: (one) time 00 each day if needed. traMADol 2020-0 Yes 50mg Take 50 mg UT (Ultram) 50 3-11 by mouth 1 He alth MG tablet 00:00: (one) time 00 each day if needed. traMADol 2020-0 Yes 50mg Take 50 mg UT (Ultram) 50 3-11 by mouth 1 He alth MG tablet 00:00: (one) time 00 each day if needed. traMADol traMADol 2020-0 Yes SULLY ONE TABLET UT HCl - 50 MG HCl - 50 MG 1-26 STANO [employer] EVERY SIX Physici Oral Tablet Oral Tablet 00:00: HOURS PRN ans 00 PAIN losartan-hy 2020-0 Yes 1{tbl} QD Take 1 UT droCHLOROth 8-31 tablet by [facility] iazide 00:00: mouth 1 (Hyzaar) 00 (one) time 100-12.5 MG each day. tablet losartan-hy 2020-0 Yes 1{tbl} QD Take 1 UT droCHLOROth 8-31 tablet by [facility] iazide 00:00: mouth 1 (Hyzaar) 00 (one) time 100-12.5 MG each day. tablet losartan-hy 2020-0 Yes 1{tbl} QD Take 1 UT droCHLOROth 8-31 tablet by [facility] iazide 00:00: mouth 1 (Hyzaar) 00 (one) time 100-12.5 MG each day. tablet losartan-hy 2020-0 Yes 1{tbl} QD Take 1 UT droCHLOROth 8-31 tablet by [facility] iazide 00:00: mouth 1 (Hyzaar) 00 (one) time 100-12.5 MG each day. tablet Vital Signs Vital Name Observation Time Observation Value Comments Source Body height 2021-09-07 17:08:00 170.2 cm [facility] Body weight 2021-09-07 17:08:00 95.255 kg [facility] BMI 2021-09-07 17:08:00 32.89 kg/m2 [facility] Body height 2021-07-22 21:26:00 170.2 cm [facility] Body weight 2021-07-22 21:26:00 95.255 kg [facility] BMI 2021-07-22 21:26:00 32.89 kg/m2 [facility] Body height 2021-05-11 16:06:00 170.2 cm [facility] Body weight 2021-05-11 16:06:00 85.276 kg [facility] BMI 2021-05-11 16:06:00 29.44 kg/m2 [facility] Body height 2021-05-11 16:06:00 170.2 cm [facility] Body weight 2021-05-11 16:06:00 85.276 kg [facility] BMI 2021-05-11 16:06:00 29.44 kg/m2 [facility] Procedures Procedure Date / Time Performed Performing Clinician Sourc e IA ARTHROCENTESIS ASPIR&/INJ 2021-07-22 13:35:10 Michael Khanna [facility] SMALL JT/BURSA W/O US IA ARTHROCENTESIS ASPIR&/INJ 2021-07-22 13:34:26 Michael Khanna [facility] SMALL JT/BURSA W/O US Post Op Promis 29 Survey 2021-02-09 00:00:00 [facility] Encounters Start End Encounter Admission Attending Care Care Encounter Source Date/Time Date/Time Type Type Clinicians Facility Department ID 2022-01-20 Outpatient [facility] [id number] Common 10:10:[address] [facility] 2022-01-19 Outpatient LIVIER Johnson [facility] [id number] Common 07:54:[address] [facility] 2021-05-11 Outpatient MERON, [facility] [id number] MS 11:49:48 [facility] 2021-03-06 Outpatient MERON, [facility] [id number] MS 03:26:35 [facility] 2022-01-19 2022-01-19 ambulatory ST[facility]IZ[facility] [id number] Common 00:00:00 00:00:00 [facility] 2021-09-07 2021-09-07 Office Silvia, LEVON 6400 [id number] MS 10:23:21 11:35:[address] [id number] Health [id number] 2021-07-22 2021-07-22 Office Meron, [facility] 6400 [id number] MS 15:47:36 16:54:[address] [id number] Health [id number] 2021-05-11 2021-05-11 Office Meron, [facility] 6400 [id number] MS 10:56:22 11:49:[address] [id number] Health [id number] 2021-05-11 2021-05-11 Office Meron, [facility] 6400 [id number] 10:56:22 11:49:[address] [id number] 2021-01-19 2021[facility]01-[facility]ILVIA, [facility] [id number] UT 11:45:00 11:45:00 t; STANO, SULLY, Phys ici SULLY, [facility] 2020-12-24 2020-12-24 [facility] SILVIA, [facility] [id number] UT 14:45:00 14:45:00 t; STANO, SULLY, Phys ici SULLY, [facility] 2020-12-08 2020-12-08 [facility] SILVIA, [facility]TP [id number] UT 10:45:00 10:45:00 t; STANO, SULLY, Phys ici SULLY, [facility] 2020-11-24 2020-11-24 [facility] SILVIA, [facility] [id number] UT 08:45:00 08:45:00 t; STANO, SULLY, Phys ici SULLY, [facility] 2020-11-14 2020-11-14 [facility] MERON, [facility] UTP [id number] UT 07:00:00 07:00:00 t; Caroline WADDELL ans KYLE, M.D. Results This patient has no known results.
--- NOTE | 2022-04-09 17:09 | ER ---
Nurse's Notes [facility] Name: Jhon Long Age: 71 yrs Sex: Male : 1950 Arrival Date: 04/09/2022 Time: 15:47 Bed 5 Private MD: Diagnosis: Low back pain-chronic Presentation: 04/09 15:52 Chief complaint: Patient states: he was working when he stood up to twist, and felt ap3 pain 10/10 in his lower back. Coronavirus screen: At this time, the client does not indicate any symptoms associated with coronavirus-19. Ebola Screen: No symptoms or risks identified at this time. Initial Sepsis Screen: Does the patient meet any 2 criteria? No. Patient's initial sepsis screen is negative. Does the patient have a suspected source of infection? No. Patient's initial sepsis screen is negative. 15:52 Method Of Arrival: EMS: [facility] ap3 15:53 Risk Assessment: Do you want to hurt yourself or someone else? Patient reports no ap3 desire to harm self or others. Onset of symptoms was April 09, 2022. 15:53 Acuity: LILIANE 4 ap3 Triage Assessment: 15:54 General: Appears uncomfortable, Behavior is calm, cooperative. Pain: Complains of pain ap3 in low back area Pain radiates to right leg Pain currently is 10 out of 10 on a pain scale. Neuro: Level of Consciousness is awake, alert, obeys commands, Oriented to person, place, time, situation, Appropriate for age Speech is normal. Cardiovascular: Patient's skin is warm and dry. Respiratory: Airway is patent Respiratory effort is even, unlabored, Respiratory pattern is regular, symmetrical. Musculoskeletal: Range of motion: intact in all extremities, Reports pain in low back area. Historical: - Allergies: 15:47 No Known Allergies; aa5 - Home Meds: 15:47 losartan 100 mg Oral tab 1 tab once daily [Active]; hydrochlorothiazide 12.5 mg Oral aa5 cap 1 cap once daily [Active]; amlodipine 10 mg tab 1 tab once daily [Active]; Novolog 70/30 flexpen insulin 30 units twice a day [Active]; gabapentin 600 mg oral Tb24 2 tabs once daily [Active]; hydrocodone-acetaminophen 7.5-325 mg Oral tab once a day [Active]; duloxetine 40 mg oral cpDR 1 cap once daily [Active]; - PMHx: 15:47 Back pain; COPD; Diabetes - NIDDM; diabetes mellitus; Hypertension; Hypertensive aa5 disorder; Sleep Apnea; - Immunization history:: Client reports receiving the 2nd dose of the Covid vaccine, and booster. - Social history:: Smoking status: Patient denies any tobacco usage or history of. Patient uses street drugs, marijuana. Screenin:54 Abuse screen: Denies threats or abuse. Nutritional screening: No deficits noted. ap3 Tuberculosis screening: No symptoms or risk factors identified. 15:56 Fall Risk None identified. No fall in past 12 months (0 pts). No secondary diagnosis (0 ap3 pts). Vital Signs: 15:53 Pulse 79; Temp 97.8(O); Pulse Ox 98% ; Weight 94.35 kg; Height 5 ft. 7 in. (170.18 cm); ap3 16:01 BP 136 / 74; ap3 16:42 BP 143 / 71; Pulse 77; Pulse Ox 92% ; ap3 15:53 Body Mass Index 32.58 (94.35 kg, 170.18 cm) ap3 ED Course: 15:47 Patient arrived in ED. aa5 15:47 Arm band placed on. aa5 15:48 Jeaneth Butcher FNP-C is [facility]. kb 15:48 Mio Shannon MD is Attending Physician. kb 15:52 Petty Roberts, JEEVAN is Primary Nurse. ap3 15:53 Triage completed. ap3 15:55 Patient has correct armband on for positive identification. Bed in low position. Call ap3 light in reach. Side rails up X 1. Pulse ox on. NIBP on. Door closed. Noise minimized. 17:21 No provider procedures requiring assistance completed. Patient did not have IV access ap3 during this emergency room visit. Administered Medications: 16:10 Drug: Flexeril (cyclobenzaprine) 10 mg Route: PO; ap3 17:21 Follow up: Response: No adverse reaction ap3 16:10 Drug: Lidoderm Patch 5 % (700 mg/patch) 1 patches Route: Topical; Site: affected area; ap3 17:21 Follow up: Response: No adverse reaction ap3 16:10 Drug: TORadol (ketorolac) 30 mg Route: IM; Site: left gluteus; ap3 17:21 Follow up: Response: No adverse reaction ap3 Medication: 15:56 VIS not applicable for this client. ap3 Outcome: 17:08 Discharge ordered by MD. aguilar 17:21 Discharged to home ambulatory. ap3 17:21 Condition: good 17:21 Discharge instructions given to patient, Instructed on discharge instructions, follow up and referral plans. medication usage, Demonstrated understanding of instructions, follow-up care, medications, Prescriptions given X 1. 17:28 Patient left the ED. ap3 Signatures: Jeaneth Butcher, PANEL MONITOR-C PANEL MONITOR-CkAnabella Ashraf, RN RN aa5 Petty Roberts RN RN ap3 Corrections: (The following items were deleted from the chart) 16:01 15:53 BP 194 / 88; Pulse 79bpm; Pulse Ox 98%; Temp 97.8F Oral; 94.35 kg; Height 5 ft. 7 ap3 in.; BMI: 32.5; ap3
--- NOTE | 2022-04-09 17:09 | EDPHYS ---
Physician Documentation [facility] Name: Jhon Long Age: 71 yrs Sex: Male : 1950 Arrival Date: 04/09/2022 Time: 15:47 Bed 5 Private MD: ED Physician Mio Shannon HPI: 04/09 17:24 This 71 yrs old Male presents to ER via EMS with complaints of Back Pain. kb 17:24 The patient presents with pain that is chronic. The symptoms are located in the low kb back. Onset: The symptoms/episode began/occurred and became worse just prior to arrival. The pain radiates to the right leg. Associated signs and symptoms: The patient has no apparent associated signs or symptoms. The problem was sustained from a chronic condition. Modifying factors: The patient symptoms are alleviated by nothing, the patient symptoms are aggravated by any movement. Severity of symptoms: At their worst the symptoms were moderate, in the emergency department the symptoms are unchanged. The patient has not experienced similar symptoms in the past. The patient has not recently seen a physician. Pt states he has chronic low back pain that radiates down right leg. Sees pain management and a spine dr for this pain, has MRI scheduled for monday. Today was straightening some cable and twisted exacerbating the chronic pain. Denies any new pain. Denies incontinence, numbness or tingling. States this is the same pain he always has just worse after twisting. . Historical: - Allergies: 15:47 No Known Allergies; aa5 - Home Meds: 15:47 losartan 100 mg Oral tab 1 tab once daily [Active]; hydrochlorothiazide 12.5 mg Oral aa5 cap 1 cap once daily [Active]; amlodipine 10 mg tab 1 tab once daily [Active]; Novolog 70/30 flexpen insulin 30 units twice a day [Active]; gabapentin 600 mg oral Tb24 2 tabs once daily [Active]; hydrocodone-acetaminophen 7.5-325 mg Oral tab once a day [Active]; duloxetine 40 mg oral cpDR 1 cap once daily [Active]; - PMHx: 15:47 Back pain; COPD; Diabetes - NIDDM; diabetes mellitus; Hypertension; Hypertensive aa5 disorder; Sleep Apnea; - Immunization history:: Client reports receiving the 2nd dose of the Covid vaccine, and booster. - Social history:: Smoking status: Patient denies any tobacco usage or history of. Patient uses street drugs, marijuana. ROS: 17:23 Constitutional: Negative for fever, chills, and weight loss. kb 17:23 Back: Positive for pain with movement, radiated pain. 17:23 All other systems are negative. Exam: 17:23 Constitutional: This is a well developed, well nourished patient who is awake, alert, kb and in no acute distress. Head/Face: Normocephalic, atraumatic. ENT: Moist Mucous membranes Cardiovascular: Regular rate and rhythm with a normal S1 and S2. No gallops, murmurs, or rubs. No pulse deficits. Respiratory: Respirations even and unlabored. No increased work of breathing. Talking in full sentences Abdomen/GI: Soft, non-tender. No distention Skin: Warm, dry with normal turgor. Normal color. MS/ Extremity: Pulses equal, no cyanosis. Neurovascular intact. Full, normal range of motion. Neuro: Awake and alert, GCS 15, oriented to person, place, time, and situation. Moves all extremities. Normal gait. Psych: Awake, alert, with orientation to person, place and time. Behavior, mood, and affect are within normal limits. 17:23 Back: pain, that is moderate, of the left low back and right low back, ROM is painless, normal spinal alignment noted, vertebral tenderness, is not appreciated. Vital Signs: 15:53 Pulse 79; Temp 97.8(O); Pulse Ox 98% ; Weight 94.35 kg; Height 5 ft. 7 in. (170.18 cm); ap3 16:01 BP 136 / 74; ap3 16:42 BP 143 / 71; Pulse 77; Pulse Ox 92% ; ap3 15:53 Body Mass Index 32.58 (94.35 kg, 170.18 cm) ap3 MDM: 15:49 Patient medically screened. kb 17:22 Data reviewed: vital signs, nurses notes, old medical records, MRI lumbar spine kb reviewed from 12/27/21. Data interpreted: Pulse oximetry: on room air is 92 %. Interpretation: acceptable. Counseling: I had a detailed discussion with the patient and/or guardian regarding: the historical points, exam findings, and any diagnostic results supporting the discharge/admit diagnosis, the need for outpatient follow up, a family practitioner, to return to the emergency department if symptoms worsen or persist or if there are any questions or concerns that arise at home. ED course: Pt reports relief of pain after treatment. Pt has follow up with spine dr scheduled for this pain. . Administered Medications: 16:10 Drug: Flexeril (cyclobenzaprine) 10 mg Route: PO; ap3 17:21 Follow up: Response: No adverse reaction ap3 16:10 Drug: Lidoderm Patch 5 % (700 mg/patch) 1 patches Route: Topical; Site: affected area; ap3 17:21 Follow up: Response: No adverse reaction ap3 16:10 Drug: TORadol (ketorolac) 30 mg Route: IM; Site: left gluteus; ap3 17:21 Follow up: Response: No adverse reaction ap3 Disposition: 17:47 Co-signature as Attending Physician, Mio Shannon MD I agree with the assessment and kdr plan of care. Disposition Summary: 04/09/22 17:08 Discharge Ordered Location: Home kb Condition: Stable kb Diagnosis - Low back pain - chronic kb Followup: kb - With: Emergency Department - When: As needed - Reason: Worsening of condition Followup: kb - With: Private Physician - When: 2 - 3 days - Reason: Recheck today's complaints, Continuance of care, Re-evaluation by your physician Discharge Instructions: - Discharge Summary Sheet kb - Back Injury Prevention, [id number] kb - Chronic Back Pain, [id number] kb Forms: - Medication Reconciliation Form kb - Thank You Letter kb - Antibiotic Education kb - Prescription Opioid Use kb Prescriptions: - Cyclobenzaprine 10 mg Oral Tablet - take 1 tablet by ORAL route every 8 hours As needed; 15 tablet; Refills: 0, kb Product Selection Permitted Signatures: eJaneth Butcher, PARTS ADVISOR-C ANEUDY-Mio Cardenas MD MD [facility] Anabella Jackman RN RN aa5 Petty Roberts RN RN ap3 Corrections: (The following items were deleted from the chart) 17:27 17:24 Pt states he has chronic low back pain that radiates down right leg. Sees pain kb management and a spine dr for this pain. Today was straightening some cable and twisted exacerbating the chronic pain. Denies any new pain. Denies incontinence, numbness or tingling. States this is the same pain he always has just worse after twisting. . kb
[2022-04-09 17:33] VITALS: TEMP 97.8
[2022-04-09 17:35] VITALS: BP 143/71; O2SAT 92
== END 2022-04-09 17:28 | disposition home or self-care (01) ==
LOC: ER 15:47
DX: M54.50 Low back pain, unspecified (principal); I10 Essential (primary) hypertension; E11.9 Type 2 diabetes mellitus without complications; Z79.4 Long term (current) use of insulin
CPT/HCPCS: 96372; 99284

== ENCOUNTER 2022-12-14 13:29 | Emergency (ER) | payer OTHER, BC ==
--- OUTSIDE RECORDS SUMMARY | 2022-12-14 13:34 | XMS REPORT | Continuity of Care Document ---
:1950 Author Organization [facility] t Address [address] [place] [address] Care Team Providers Name Role Phone Josey Herr Primary Care Physician Lillian Johnson Attending Clinician Unavailable NADIRA CHANCE Attending Clinician Unavailable Sully Vega APRN Attending Clinician SULLY VEGA APRN Attending Clinician Unavailable NADIRA CHANCE M.D. Attending Clinician Unavailable Payers Payer Name Policy Type Policy Number Effective Date Expiration Date S [facility] MEDICARE PART A [id number] 2016 AND B 00:00:00 [employer] Blue 6 [id number] 2016 [facility] 00:00:00 - [facility] Problems Condition Condition Condition Status Onset Resolution Last Treating Co mments Source Name Details Category Date Date Treatment Clinician Date Laceration Laceration Disease Active [facility] left of left 05-11 Health index index 00:00: finger finger 00 without without foreign foreign body body without without damage to damage to nail nail Laceration Laceration Disease Active [facility] left of left -13 Health middle middle 00:00: finger finger 00 [...] left left 00 middle middle finger finger Malignant Malignant Problem Com mon hypertensi hypertensi Sp drew ve heart ve heart - [facility] disease disease, St without wo [facility] congestive [facility] failure [id number] Encounter Problem Com mon for Spirit immunizati - [facility] on [facility] [id number] alf Problem Com mon (current) Spirit use of - [facility] insulin [facility] [id number] Type 2 Problem Common diabetes Spirit mellitus - [facility] with [facility] [id number] Chronic Problem Commo n pain Spirit syndrome - [facility] [id number] Stage 3a Problem Comm on chronic [facility] kidney - [facility] disease [facility] [id number] Mixed Problem Common hyperlipid Spirit emia - [facility] 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 Social History Social Habit Start Date Stop Date Quantity Comments Source Exposure to Not sure [facility] SARS-CoV-2 (event) History of [facility] - Tobacco Use [facility] Sex Assigned At [facility] - [facility] Alcohol intake 2021-09-07 2021-09-07 Lifetime [facility] 00:00:00 00:00:00 non-drinker (finding) Tobacco use and 2021-05-11 2021-05-11 Smokeless tobacco [facility] exposure 00:00:00 00:00:00 non-user Smoking Status Start Date Stop Date Source Former Smoker 2022-09-29 00:00:00 2022-09-29 00:00:00 [facility] - [facility] Ce nter Never smoked tobacco [facility] Medications Ordered Filled Start Stop Current Ordering Indication Dosage Frequency Signature Comments Components Source Medication Medication Date Date Medication? Clinician (SIG) Name Name Trulicity Trulicity 2021-10- No Trulicity 1.5mg/0.5ml 1.5mg/0.5ml -11 12-11 1.5mg/0.5m 00:00: 00:00 l 00 :00 Trulicity Trulicity 2021-10- No Trulicity 1.5mg/0.5ml 1.5mg/0.5ml 11-09 12-11 1.5mg/0.5m 00:00: 00:00 l 00 :00 Ozempic (1 Ozempic (2021-10- No Ozempic (1 MG/DOSE) 4 MG/DOSE) 4 11-06 05-07 MG/DOSE) 4 MG/3ML MG/3ML 00:00: 00:00 MG/3ML 00 :00 Ozempic (1 Ozempic (2021-10- No Ozempic (1 MG/DOSE) 4 MG/DOSE) 4 11-06 05-07 MG/DOSE) 4 MG/3ML MG/3ML 00:00: 00:00 MG/3ML 00 :00 Ozempic (1 Ozempic (2021-10- No Ozempic (1 MG/DOSE) 4 MG/DOSE) 4 11-06 05-07 MG/DOSE) 4 MG/3ML MG/3ML 00:00: 00:00 MG/3ML 00 :00 Ozempic (1 Ozempic (2021-10- No Ozempic (1 MG/DOSE) 4 MG/DOSE) 4 11-06 05-07 MG/DOSE) 4 MG/3ML MG/3ML 00:00: 00:00 MG/3ML 00 :00 Pen Mobile Pen Mobile 2021-10 No BID Pen 03/14" 31G X 5/16" 31G X 0-26 Mobile 8 MM 8 MM 00:00: 03/14" 31G 00 X 8 MM Pen Mobile Pen Mobile 2021-10 No BID Pen 16" 31G X 5/16" 31G X 0-26 Mobile 8 MM 8 MM 00:00: 03/14" 31G 00 X 8 MM Pen Mobile Pen Mobile 2021-10 No BID Pen 03/14" 31G X 5/16" 31G X 0-26 Mobile 8 MM 8 MM 00:00: 03/14" 31G 00 X 8 MM Pen Mobile Pen Mobile 2021-10 No BID Pen 03/14" 31G X 16" 31G X 0-26 Mobile 8 MM 8 MM 00:00: 03/14" 31G 00 X 8 MM Pen Mobile Pen Mobile 2021-10 No BID Pen 03/14" 31G X 16" 31G X 0-26 Mobile 8 MM 8 MM 00:00: 03/14" 31G 00 X 8 MM Ozempic Ozempic 2021- No Ozempic (0.25 or (0.25 or 928 11- (0.25 or 0.5 0.5 00:00: 00:00 0.5 MG/DOSE) 2 MG/DOSE) 2 00 :00 MG/DOSE) 2 MG/1.5ML MG/1.5ML MG/1.5ML Ozempic Ozempic 2021- No Ozempic (0.25 or (0.25 or 07-27- (0.25 or 0.5 0.5 00:00: 00:00 0.5 MG/DOSE) 2 MG/DOSE) 2 00 :00 MG/DOSE) 2 MG/1.5ML MG/1.5ML MG/1.5ML Ozempic Ozempic 2021- No Ozempic (0.25 or (0.25 or 07-27- (0.25 or 0.5 0.5 00:00: 00:00 0.5 MG/DOSE) 2 MG/DOSE) 2 00 :00 MG/DOSE) 2 MG/1.5ML MG/1.5ML MG/1.5ML Ozempic Ozempic 2021- No Ozempic (0.25 or (0.25 or 928 -26 (0.25 or 0.5 0.5 00:00: 00:00 0.5 MG/DOSE) 2 MG/DOSE) 2 00 :00 MG/DOSE) 2 MG/1.5ML MG/1.5ML MG/1.5ML Ozempic Ozempic 2021- No Ozempic (0.25 or (0.25 or 28 11-26 (0.25 or 0.5 0.5 00:00: 00:00 0.5 MG/DOSE) 2 MG/DOSE) 2 00 :00 MG/DOSE) 2 MG/1.5ML MG/1.5ML MG/1.5ML Ozempic Ozempic 2021- No Ozempic (0.25 or (0.25 or 9-28 11-26 (0.25 or 0.5 0.5 00:00: 00:00 0.5 MG/DOSE) 2 MG/DOSE) 2 00 :00 MG/DOSE) 2 MG/1.5ML MG/1.5ML MG/1.5ML lidocaine 2020- No [id number] 1mL [facility] (Xylocaine) 07-22 Health 1 % 13:35: 13:35 injection 1 10 :00 mL triamcinolo 2020- No [id number] 20mg UT ne 07-22 Health acetonide 13:35: 13:35 (Kenalog-40 10 :00 ) injection 20 mg triamcinolo 2020- No [id number] 20mg 20 mg, [facility] ne 07-22 [facility] acetonide 13:35: 13:35 cular, (Kenalog-40 10 :00 Once PRN ) injection Procedure, 20 mg Starting on Rajani 07/22/21 at 0835, For 1 dose lidocaine 2020- No [id number] 1mL 1 mL, [facility] (Xylocaine) 07-2207 Injection, H ealth 1 % 13:35: 13:35 Once PRN injection 1 10 :00 Procedure, mL Starting on Rajani 07/22/21 at 0835, For 1 dose lidocaine 2020- No [id number] 1mL [facility] (Xylocaine) 07-22 Health 1 % 13:35: 13:35 injection 1 10 :00 mL triamcinolo 2020- No [id number] 20mg UT ne 07-22 Health acetonide 13:35: 13:35 (Kenalog-40 10 :00 ) injection 20 mg triamcinolo 2020- No [id number] 20mg 20 mg, [facility] ne 07-2207 [facility] acetonide 13:35: 13:35 cular, (Kenalog-40 10 :00 Once PRN ) injection Procedure, 20 mg Starting on Rajani 07/22/21 at 0835, For 1 dose lidocaine 2020- No [id number] 1mL 1 mL, [facility] (Xylocaine) 07-2207 Injection, H ealth 1 % 13:35: 13:35 Once PRN injection 1 10 :00 Procedure, mL Starting on Rajani 07/22/21 at 0835, For 1 dose lidocaine 2020- No [id number] 1mL [facility] (Xylocaine) 07-22 Health 1 % 13:34: 13:34 injection 1 26 :00 mL triamcinolo 2020- No [id number] 20mg UT ne 07-22 Health acetonide 13:34: 13:34 (Kenalog-40 26 :00 ) injection 20 mg triamcinolo 2020- No [id number] 20mg 20 mg, UT ne 07-2207 [facility] acetonide 13:34: 13:34 cular, (Kenalog-40 26 :00 Once PRN ) injection Procedure, 20 mg Starting on Rajani 07/22/21 at 0834, For 1 dose lidocaine 2020- No [id number] 1mL 1 mL, [facility] (Xylocaine) 07-22 Injection, H ealth 1 % 13:34: 13:34 Once PRN injection 1 26 :00 Procedure, mL Starting on Rajani 07/22/21 at 0834, For 1 dose lidocaine 2020- No [id number] 1mL UT (Xylocaine) 07-2207 Health 1 % 13:34: 13:34 injection 1 26 :00 mL triamcinolo 2020- No [id number] 20mg UT ne 07-22 Health acetonide 13:34: 13:34 (Kenalog-40 26 :00 ) injection 20 mg triamcinolo 2020- No [id number] 20mg 20 mg, [facility] ne 07-22 [facility] acetonide 13:34: 13:34 cular, (Kenalog-40 26 :00 Once PRN ) injection Procedure, 20 mg Starting on Rajani 07/22/21 at 0834, For 1 dose lidocaine 2020- No [id number] 1mL 1 mL, UT (Xylocaine) 07-22 Injection, H ealth 1 % 13:34: 13:34 Once PRN injection 1 26 :00 Procedure, mL Starting on Rajani 07/22/21 at 0834, For 1 dose meloxicam 2020-0 Yes meloxicam [facility] (Mobic) 7.5 7-13 7.5 mg Health MG tablet 16:09: tablet 45 meloxicam 2020-0 Yes meloxicam [facility] (Mobic) 7.5 7-13 7.5 mg Health MG tablet 11:09: tablet 45 meloxicam 2021-0 Yes meloxicam [facility] (Mobic) 7.5 7-13 7.5 mg Health MG tablet 11:09: tablet 45 meloxicam 1-0 Yes meloxicam [facility] (Mobic) 7.5 7-13 7.5 mg Health MG tablet 11:09: tablet 45 glimepiride 1-0 Yes 4mg Q.5D Take 4 mg U [...] 00:00: (two) 00 times a day. tiZANidine 2021-0 Yes 4mg Take 4 mg [...] time 00 each day if needed. traMADol 1-0 Yes 50mg Take 50 mg UT (Ultram) [...] MG HCl - 50 MG 1-26 [employer] EVERY SIX [facility] Oral Tablet Oral Tablet 00:00: HOURS PRN ans 00 PAIN losartan-hy 2020-0 Yes 1{tbl} QD Take 1 UT droCHLOROth 8-31 tablet by [facility] iazide 00:00: mouth 1 (Hyzaar) 00 (one) time 100-12.5 MG each day. tablet losartan-hy 2020-0 Yes 1{tbl} QD Take 1 UT droCHLOROth 8-31 tablet by [facility] iazide 00:00: mouth 1 (Hyzaar) 00 (one) time 100-12.5 MG each day. tablet losartan-hy 2020-0 Yes 1{tbl} QD Take 1 UT droCHLOROth 8-31 tablet by [facility] iazide 00:00: mouth 1 (Hyzaar) 00 (one) time 100-12.5 MG each day. tablet losartan-hy 2020-0 Yes 1{tbl} QD Take 1 UT droCHLOROth 8-31 tablet by [facility] iazide 00:00: mouth 1 (Hyzaar) 00 (one) time 100-12.5 MG each day. tablet HYDROcodone HYDROcodone No HYDROcodon -Acetaminop -Acetaminop e-Acetamin hen 7.5-325 hen 7.5-325 ophen MG MG 7.5-325 MG hydroCHLORO hydroCHLORO No 1{table QD hydroCHLOR thiazide thiazide t} Othiazide 12.5 MG 12.5 MG 12.5 MG NovoLOG Mix NovoLOG Mix No NovoLOG 70/30 70/30 Mix 70/30 FlexPen FlexPen FlexPen (70-30) 100 (70-30) 100 (70-30) UNIT/ML UNIT/ML 100 UNIT/ML Losartan Losartan No Losartan Potassium Potassium Potassium 100 MG 100 MG 100 MG Gabapentin Gabapentin No Gabapentin 600 MG 600 MG 600 MG amLODIPine amLODIPine No 1{table QD amLODIPine Besylate 10 Besylate 10 t} Besylate MG MG 10 MG HYDROcodone HYDROcodone No HYDROcodon -Acetaminop -Acetaminop e-Acetamin hen 7.5-325 hen 7.5-325 ophen MG MG 7.5-325 MG hydroCHLORO hydroCHLORO No 1{table QD hydroCHLOR thiazide thiazide t} Othiazide 12.5 MG 12.5 MG 12.5 MG NovoLOG Mix NovoLOG Mix No NovoLOG 70/30 70/30 Mix 70/30 FlexPen FlexPen FlexPen (70-30) 100 (70-30) 100 (70-30) UNIT/ML UNIT/ML 100 UNIT/ML Losartan Losartan No Losartan Potassium Potassium Potassium 100 MG 100 MG 100 MG Gabapentin Gabapentin No Gabapentin 600 MG 600 MG 600 MG amLODIPine amLODIPine No 1{table QD amLODIPine Besylate 10 Besylate 10 t} Besylate MG MG 10 MG HYDROcodone HYDROcodone No HYDROcodon -Acetaminop -Acetaminop e-Acetamin hen 7.5-325 hen 7.5-325 ophen MG MG 7.5-325 MG hydroCHLORO hydroCHLORO No 1{table QD hydroCHLOR thiazide thiazide t} Othiazide 12.5 MG 12.5 MG 12.5 MG NovoLOG Mix NovoLOG Mix No NovoLOG 70/30 70/30 Mix 70/30 FlexPen FlexPen FlexPen (70-30) 100 (70-30) 100 (70-30) UNIT/ML UNIT/ML 100 UNIT/ML Losartan Losartan No Losartan Potassium Potassium Potassium 100 MG 100 MG 100 MG Gabapentin Gabapentin No Gabapentin 600 MG 600 MG 600 MG amLODIPine amLODIPine No 1{table QD amLODIPine Besylate 10 Besylate 10 t} Besylate MG MG 10 MG NovoLOG Mix NovoLOG Mix No BID NovoLOG 70/30 70/30 Mix 70/30 FlexPen FlexPen FlexPen (70-30) 100 (70-30) 100 (70-30) UNIT/ML UNIT/ML 100 UNIT/ML hydroCHLORO hydroCHLORO No 1{table QD hydroCHLOR thiazide thiazide t} Othiazide 12.5 MG 12.5 MG 12.5 MG Gabapentin Gabapentin No Gabapentin 600 MG 600 MG 600 MG amLODIPine amLODIPine No 1{table QD amLODIPine Besylate 10 Besylate 10 t} Besylate MG MG 10 MG Atorvastati Atorvastati No 1{table QD Atorvastat n Calcium n Calcium t} in Calcium 40 MG 40 MG 40 MG HYDROcodone HYDROcodone No HYDROcodon -Acetaminop -Acetaminop e-Acetamin hen 7.5-325 hen 7.5-325 ophen MG MG 7.5-325 MG Losartan Losartan No Losartan Potassium Potassium Potassium 100 MG 100 MG 100 MG Gabapentin Gabapentin No Gabapentin 600 MG 600 MG 600 MG amLODIPine amLODIPine No 1{table QD amLODIPine Besylate 10 Besylate 10 t} Besylate MG MG 10 MG HYDROcodone HYDROcodone No HYDROcodon -Acetaminop -Acetaminop e-Acetamin hen 7.5-325 hen 7.5-325 ophen MG MG 7.5-325 MG hydroCHLORO hydroCHLORO No 1{table QD hydroCHLOR thiazide thiazide t} Othiazide 12.5 MG 12.5 MG 12.5 MG Atorvastati Atorvastati No 1{table Atorvastat n Calcium n Calcium t} in Calcium 40 MG 40 MG 40 MG NovoLOG Mix NovoLOG Mix No BID NovoLOG 70/30 70/30 Mix 70/30 FlexPen FlexPen FlexPen (70-30) 100 (70-30) 100 (70-30) UNIT/ML UNIT/ML 100 UNIT/ML Losartan Losartan No Losartan Potassium Potassium Potassium 100 MG 100 MG 100 MG Gabapentin Gabapentin No Gabapentin 600 MG 600 MG 600 MG NovoLOG Mix NovoLOG Mix No BID NovoLOG 70/30 70/30 Mix 70/30 FlexPen FlexPen FlexPen (70-30) 100 (70-30) 100 (70-30) UNIT/ML UNIT/ML 100 UNIT/ML hydroCHLORO hydroCHLORO No 1{table QD hydroCHLOR thiazide thiazide t} Othiazide 12.5 MG 12.5 MG 12.5 MG Atorvastati Atorvastati No 1{table Atorvastat n Calcium n Calcium t} in Calcium 40 MG 40 MG 40 MG Losartan Losartan No Losartan Potassium Potassium Potassium 100 MG 100 MG 100 MG amLODIPine amLODIPine No 1{table QD amLODIPine Besylate 10 Besylate 10 t} Besylate MG MG 10 MG HYDROcodone HYDROcodone No HYDROcodon -Acetaminop -Acetaminop e-Acetamin hen 7.5-325 hen 7.5-325 ophen MG MG 7.5-325 MG Gabapentin Gabapentin No Gabapentin 600 MG 600 MG 600 MG NovoLOG Mix NovoLOG Mix No BID NovoLOG 70/30 70/30 Mix 70/30 FlexPen FlexPen FlexPen (70-30) 100 (70-30) 100 (70-30) UNIT/ML UNIT/ML 100 UNIT/ML hydroCHLORO hydroCHLORO No 1{table QD hydroCHLOR thiazide thiazide t} Othiazide 12.5 MG 12.5 MG 12.5 MG Atorvastati Atorvastati No 1{table Atorvastat n Calcium n Calcium t} in Calcium 40 MG 40 MG 40 MG Losartan Losartan No Losartan Potassium Potassium Potassium 100 MG 100 MG 100 MG amLODIPine amLODIPine No 1{table QD amLODIPine Besylate 10 Besylate 10 t} Besylate MG MG 10 MG HYDROcodone HYDROcodone No HYDROcodon -Acetaminop -Acetaminop e-Acetamin hen 7.5-325 hen 7.5-325 ophen MG MG 7.5-325 MG Gabapentin Gabapentin No Gabapentin 600 MG 600 MG 600 MG NovoLOG Mix NovoLOG Mix No BID NovoLOG 70/30 70/30 Mix 70/30 FlexPen FlexPen FlexPen (70-30) 100 (70-30) 100 (70-30) UNIT/ML UNIT/ML 100 UNIT/ML hydroCHLORO hydroCHLORO No 1{table QD hydroCHLOR thiazide thiazide t} Othiazide 12.5 MG 12.5 MG 12.5 MG HYDROcodone HYDROcodone No HYDROcodon -Acetaminop -Acetaminop e-Acetamin hen 7.5-325 hen 7.5-325 ophen MG MG 7.5-325 MG HYDROcodone HYDROcodone No HYDROcodon -Acetaminop -Acetaminop e-Acetamin hen 7.5-325 hen 7.5-325 ophen MG MG 7.5-325 MG Atorvastati Atorvastati No 1{table Atorvastat n Calcium n Calcium t} in Calcium 40 MG 40 MG 40 MG Losartan Losartan No Losartan Potassium Potassium Potassium 100 MG 100 MG 100 MG amLODIPine amLODIPine No 1{table QD amLODIPine Besylate 10 Besylate 10 t} Besylate MG MG 10 MG Gabapentin Gabapentin No Gabapentin 600 MG 600 MG 600 MG hydroCHLORO hydroCHLORO No 1{table QD hydroCHLOR thiazide thiazide t} Othiazide 12.5 MG 12.5 MG 12.5 MG NovoLOG Mix NovoLOG Mix No BID NovoLOG 70/30 70/30 Mix 70/30 FlexPen FlexPen FlexPen (70-30) 100 (70-30) 100 (70-30) UNIT/ML UNIT/ML 100 UNIT/ML hydroCHLORO hydroCHLORO No 1{table QD hydroCHLOR thiazide thiazide t} Othiazide 12.5 MG 12.5 MG 12.5 MG HYDROcodone HYDROcodone No HYDROcodon -Acetaminop -Acetaminop e-Acetamin hen 7.5-325 hen 7.5-325 ophen MG MG 7.5-325 MG Atorvastati Atorvastati No 1{table Atorvastat n Calcium n Calcium t} in Calcium 40 MG 40 MG 40 MG Losartan Losartan No Losartan Potassium Potassium Potassium 100 MG 100 MG 100 MG amLODIPine amLODIPine No 1{table QD amLODIPine Besylate 10 Besylate 10 t} Besylate MG MG 10 MG NovoLOG Mix NovoLOG Mix No NovoLOG 70/30 70/30 Mix 70/30 FlexPen FlexPen FlexPen (70-30) 100 (70-30) 100 (70-30) UNIT/ML UNIT/ML 100 UNIT/ML Losartan Losartan No Losartan Potassium Potassium Potassium 100 MG 100 MG 100 MG Gabapentin Gabapentin No Gabapentin 600 MG 600 MG 600 MG NovoLOG Mix NovoLOG Mix No BID NovoLOG 70/30 70/30 Mix 70/30 FlexPen FlexPen FlexPen (70-30) 100 (70-30) 100 (70-30) UNIT/ML UNIT/ML 100 UNIT/ML Losartan Losartan No Losartan Potassium Potassium Potassium 100 MG 100 MG 100 MG Atorvastati Atorvastati No 1{table Atorvastat n Calcium n Calcium t} in Calcium 40 MG 40 MG 40 MG amLODIPine amLODIPine No 1{table QD amLODIPine Besylate 10 Besylate 10 t} Besylate MG MG 10 MG HYDROcodone HYDROcodone No HYDROcodon -Acetaminop -Acetaminop e-Acetamin hen 7.5-325 hen 7.5-325 ophen MG MG 7.5-325 MG Gabapentin Gabapentin No Gabapentin 600 MG 600 MG 600 MG hydroCHLORO hydroCHLORO No 1{table QD hydroCHLOR thiazide thiazide t} Othiazide 12.5 MG 12.5 MG 12.5 MG amLODIPine amLODIPine No 1{table QD amLODIPine Besylate 10 Besylate 10 t} Besylate MG MG 10 MG NovoLOG Mix NovoLOG Mix No BID NovoLOG 70/30 70/30 Mix 70/30 FlexPen FlexPen FlexPen (70-30) 100 (70-30) 100 (70-30) UNIT/ML UNIT/ML 100 UNIT/ML hydroCHLORO hydroCHLORO No 1{table QD hydroCHLOR thiazide thiazide t} Othiazide 12.5 MG 12.5 MG 12.5 MG Gabapentin Gabapentin No Gabapentin 600 MG 600 MG 600 MG amLODIPine amLODIPine No 1{table QD amLODIPine Besylate 10 Besylate 10 t} Besylate MG MG 10 MG Atorvastati Atorvastati No 1{table QD Atorvastat n Calcium n Calcium t} in Calcium 40 MG 40 MG 40 MG HYDROcodone HYDROcodone No HYDROcodon -Acetaminop -Acetaminop e-Acetamin hen 7.5-325 hen 7.5-325 ophen MG MG 7.5-325 MG Losartan Losartan No Losartan Potassium Potassium Potassium 100 MG 100 MG 100 MG Gabapentin Gabapentin No Gabapentin 600 MG 600 MG 600 MG amLODIPine amLODIPine No 1{table QD amLODIPine Besylate 10 Besylate 10 t} Besylate MG MG 10 MG HYDROcodone HYDROcodone No HYDROcodon -Acetaminop -Acetaminop e-Acetamin hen 7.5-325 hen 7.5-325 ophen MG MG 7.5-325 MG hydroCHLORO hydroCHLORO No 1{table QD hydroCHLOR thiazide thiazide t} Othiazide 12.5 MG 12.5 MG 12.5 MG Atorvastati Atorvastati No 1{table Atorvastat n Calcium n Calcium t} in Calcium 40 MG 40 MG 40 MG NovoLOG Mix NovoLOG Mix No BID NovoLOG 70/30 70/30 Mix 70/30 FlexPen FlexPen FlexPen (70-30) 100 (70-30) 100 (70-30) UNIT/ML UNIT/ML 100 UNIT/ML Losartan Losartan No Losartan Potassium Potassium Potassium 100 MG 100 MG 100 MG amLODIPine amLODIPine No 1{table QD amLODIPine Besylate 10 Besylate 10 t} Besylate MG MG 10 MG NovoLOG Mix NovoLOG Mix No NovoLOG 70/30 70/30 Mix 70/30 FlexPen FlexPen FlexPen (70-30) 100 (70-30) 100 (70-30) UNIT/ML UNIT/ML 100 UNIT/ML hydroCHLORO hydroCHLORO No 1{table QD hydroCHLOR thiazide thiazide t} Othiazide 12.5 MG 12.5 MG 12.5 MG Gabapentin Gabapentin No Gabapentin 600 MG 600 MG 600 MG HYDROcodone HYDROcodone No HYDROcodon -Acetaminop -Acetaminop e-Acetamin hen 7.5-325 hen 7.5-325 ophen MG MG 7.5-325 MG Losartan Losartan No Losartan Potassium Potassium Potassium 100 MG 100 MG 100 MG Trulicity Trulicity Trulicity 1.5mg/0.5ml 1.5mg/0.5ml 01-28 1.5mg/0.5m 00:00 l :00 Immunizations Ordered Immunization Filled Immunization Date Status Commen ts Source Name Name FLUZONE HIGH DOSE FLUZONE HIGH DOSE 2022-07-27 Completed [facility] OVER 65 15:26:00 - [facility] FLUZONE HIGH DOSE FLUZONE HIGH DOSE 2022-07-27 Completed [facility] OVER 65 OVER 65 15:26:00 - [facility] FLUZONE HIGH DOSE FLUZONE HIGH DOSE 2022-07-27 Completed [facility] OVER 65 OVER 65 15:26:00 - [facility] FLUZONE HIGH DOSE FLUZONE HIGH DOSE 2022-07-27 Completed [facility] OVER 65 OVER 65 15:26:00 - [facility] FLUZONE HIGH DOSE FLUZONE HIGH DOSE 2022-07-27 Completed [facility] OVER 65 OVER 65 15:26:00 - [facility] FLUZONE HIGH DOSE FLUZONE HIGH DOSE 2022-07-27 Completed [facility] OVER 65 OVER 65 15:26:00 - [facility] FLUZONE HIGH DOSE FLUZONE HIGH DOSE 2022-07-27 Completed [facility] OVER 65 OVER 65 15:26:00 - [facility] Vital Signs Vital Name Observation Time Observation Value Comments Source height 2022-09-30 08:20:00 67 [in_i] Common [facility] weight 2022-09-30 08:20:00 184 [lb_av] [facility] temperature 2022-09-30 08:20:00 97.7 [degF] [facility] bmi 2022-09-30 08:20:00 28.82 kg/m2 [facility] oximetry 2022-09-30 08:20:00 97 % [facility] respiratory rate 2022-09-30 08:20:00 17 /min Comm on [facility] blood pressure 2022-09-30 08:20:00 111 mm[Hg] Common [facility] - systolic [facility] blood pressure 2022-09-30 08:20:00 69 mm[Hg] Common [facility] - diastolic [facility] height 2022-08-24 16:20:00 67 [in_i] Common [facility] weight 2022-08-24 16:20:00 203 [lb_av] [facility] temperature 2022-08-24 16:20:00 97.5 [degF] [facility] bmi 2022-08-24 16:20:00 31.79 kg/m2 [facility] oximetry 2022-08-24 16:20:00 97 % [facility] respiratory rate 2022-08-24 16:20:00 18 /min Comm on [facility] blood pressure 2022-08-24 16:20:00 132 mm[Hg] [facility] - systolic [facility] blood pressure 2022-08-24 16:20:00 75 mm[Hg] [facility] - diastolic [facility] height 2022-07-27 15:00:00 67 [in_i] [facility] weight 2022-07-27 15:00:00 197 [lb_av] [facility] temperature 2022-07-27 15:00:00 98.1 [degF] [facility] bmi 2022-07-27 15:00:00 30.85 kg/m2 [facility] oximetry 2022-07-27 15:00:00 94 % [facility] 2022-07-27 15:00:00 17 /min Comm on [facility] blood pressure 2022-07-27 15:00:00 134 mm[Hg] [facility] - systolic [facility] blood pressure 2022-07-27 15:00:00 72 mm[Hg] [facility] - diastolic [facility] height 2022-04-18 10:40:00 67 [in_i] [facility] weight 2022-04-18 10:40:00 216.4 [lb_av] Common [facility] temperature 2022-04-18 10:40:00 97.6 [degF] [facility] bmi 2022-04-18 10:40:00 33.89 kg/m2 [facility] oximetry 2022-04-18 10:40:00 98 % [facility] respiratory rate 2022-04-18 10:40:00 18 /min Comm on [facility] blood pressure 2022-04-18 10:40:00 120 mm[Hg] [facility] - systolic [facility] blood pressure 2022-04-18 10:40:00 58 mm[Hg] [facility] - diastolic [facility] height 2022-04-18 11:00:00 67 [in_i] [facility] weight 2022-04-18 11:00:00 216.4 [lb_av] [facility] temperature 2022-04-18 11:00:00 97.6 [degF] [facility] bmi 2022-04-18 11:00:00 33.89 kg/m2 [facility] oximetry 2022-04-18 11:00:00 98 % [facility] respiratory rate 2022-04-18 11:00:00 18 /min Comm on [facility] blood pressure 2022-04-18 11:00:00 120 mm[Hg] Common [facility] - systolic [facility] blood pressure 2022-04-18 11:00:00 58 mm[Hg] Common [facility] - diastolic [facility] height 2022-01-19 08:00:00 67 [in_i] Common [facility] weight 2022-01-19 08:00:00 214.6 [lb_av] [facility] temperature 2022-01-19 08:00:00 97.3 [degF] Common [facility] bmi 2022-01-19 08:00:00 33.61 kg/m2 [facility] oximetry 2022-01-19 08:00:00 97 % [facility] respiratory rate 2022-01-19 08:00:00 16 /min Comm on [facility] blood pressure 2022-01-19 08:00:00 132 mm[Hg] Common [facility] - systolic [facility] blood pressure 2022-01-19 08:00:00 78 mm[Hg] Common [facility] diastolic [facility] Body height 2021-09-07 17:08:00 170.2 cm [place] [...] Healt h BMI 2021-05-11 16:06:00 29.44 kg/m2 [facility] h Procedures Procedure Date / Time Performed Performing Clinician Sour e MO ARTHROCENTESIS ASPIR&/INJ 2021-07-22 13:35:10 Meron [facility] SMALL JT/BURSA W/O US MO ARTHROCENTESIS ASPIR&/INJ 2021-07-22 13:34:26 [facility]T/BURSA W/O US Post Op Promis 29 Survey 2021-02-09 00:00:00 [place] Physicians Encounters Start End Encounter Admission Attending Care Care Encounter Source Date/Time Date/Time Type Type Clinicians Facility Department ID 2022-11-09 Outpatient LIVIER Johnson [facility] [id number] Common 08:15:01 Lillian [id number] [facility] 2022-09-28 Outpatient LIVIER Johnson [facility] [id number] Common 07:11:00 Lillian [facility] 2022-08-23 Outpatient LIVIER Johnson [facility] [id number] Common 08:53:02 Lillian [facility] 2022-07-18 Outpatient LIVIER Johnson [facility] [id number] Common 09:06:02 Lillian [facility] 2022-04-14 Outpatient Johnson, STLMLC ST[facility] [id number] Common 09:30:02 [facility] 2022-01-20 Outpatient Johnson, STLMLC STLMLC [id number] Common 10:10:03 Lillian [facility] 2022-01-19 Outpatient Johnson, STLMLC STLMLC [id number] Common 07:54:02 [facility] 2021-05-11 Out[facility] [id number] [place] 11:49:48 [facility] 2021-03-06 Outpatient [facility] [id number] [place] 03:26:35 [facility] 2022-09-30 2022-09-30 OFFICE STLMLC STLMLC [id number] Co mmon 00:00:00 00:00:00 VISIT EST Spir it PT LEVEL 3 [facility] 2022-09-13 2022-09-13 (TEL) STLMLC STLMLC [id number] Co mmon 00:00:00 00:00:00 [facility] 2022-09-09 2022-09-09 (TEL) STLMLC STLMLC [id number] Co mmon 00:00:00 00:00:00 [facility] 2022-09-05 2022-09-05 (TEL) STLMLC STLMLC [id number] Co mmon 00:00:00 00:00:00 [facility] 2022-08-24 2022-08-24 OFFICE STLMLC STLMLC [id number] Co mmon 00:00:00 00:00:00 VISIT [facility] ESTAB PT - CHI LEVEL 4 [facility] 2022-07-27 2022-07-27 OFFICE STLMLC STLMLC [id number] Co mmon 00:00:00 00:00:00 VISIT Spirit ESTAB PT - CHI LEVEL 4 [facility] 2022-07-22 2022-07-22 (TEL) STLMLC STLMLC [id number] Co mmon 00:00:00 00:00:00 [facility] 2022-07-20 2022-07-20 (TEL) STLMLC STLMLC [id number] Co mmon 00:00:00 00:00:00 [facility] - [facility] 2022-04-18 2022-04-18 OFFICE STLMLC STLMLC [id number] Co mmon 00:00:00 00:00:00 VISIT Spirit ESTAB PT - CHI LEVEL 4 [facility] 2022-04-18 2022-04-18 (MCR WELL) STLMLC STLMLC [id number] Common 00:00:00 00:00:00 Medicare Sp[facility] t [facility] - [facility] 2022-01-19 2022-01-19 OFFICE STLMLC STLMLC [id number] Co mmon 00:00:00 00:00:00 VISIT EST Spir it PT LEVEL 3 - [facility] 2021-09-07 2021-09-07 Office LEVON Vega 6400 [id number] [place] 10:23:21 11:35:[address] [id number] Health [id number] 2021-07-22 2021-07-22 Office LEVON Chance 6400 [id number] [place] 15:47:36 16:54:[address] [id number] Health [id number] 2021-05-11 2021-05-11 Office LEVON Chance 6400 [id number] 10:56:22 11:49:[address] [id number] 2021-05-11 2021-05-11 Office LEVON Chance 6400 [id number] [place] 10:56:22 11:49:[address] [id number] Health [id number] 2021-01-19 2021-01-19 [facility]TP [id number] [place] 11:45:00 11:45:00 t; STANO, SULLY, Phys ici SULLY, 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 2020-12-24 2020-12-24 [facility] VEGA UTP UTP [id number] [place] 14:45:00 14:45:00 t; STANO, SULLY, Phys ici SULLY, 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 Results Test Description Test Time Test Comments Results Result Comments Source HEMOGLOBIN A1C 2022-01-19 00:00:00 Test Item Value Reference Range Interpretation Comme nts A1C (test code = 4548-4) 8.7
--- NOTE | 2022-12-14 15:17 | EDPHYS ---
Physician Documentation [facility] Name: Jhon Long Age: 72 yrs Sex: Male : 1950 Arrival Date: 12/14/2022 Time: 13:35 Bed 11 Private MD: ED Physician Guanako Chandler HPI: 12/14 15:33 This 72 yrs old Male presents to ER via Ambulatory with complaints of Leg Pain. sb4 15:33 The patient presents with an injury. The complaints affect the right hamstring. sb4 Context: resulted from a mis-step, stepping out of his car, the patient can fully bear weight, the patient is able to ambulate, with mild difficulty, Problem is a result from a previous injury: No. Onset: The symptoms/episode began/occurred 2 day(s) ago. Modifying factors: The symptoms are alleviated by remaining still, . the symptoms are aggravated by movement, weight bearing. Associated signs and symptoms: Pertinent negatives numbness, tingling, warmth. Severity of symptoms:. Patient states he was stepping out of his truck and felt his right leg hyperextend. Complains of pain to his right hamstring. . Historical: - Allergies: 14:52 No Known Allergies; ap3 - PMHx: 14:52 Back pain; COPD; Diabetes - NIDDM; diabetes mellitus; Hypertension; Hypertensive ap3 disorder; Sleep Apnea; - Immunization history:: Client reports receiving the 2nd dose of the Covid vaccine, Flu vaccine is up to date. - Social history:: Smoking status: Patient denies any tobacco usage or history of. Patient uses. ROS: 15:35 Constitutional: Negative for fever, chills, and weight loss, Eyes: Negative for injury, sb4 pain, redness, and discharge, ENT: Negative for injury, pain, and discharge, Cardiovascular: Negative for chest pain, palpitations, and edema, Respiratory: Negative for shortness of breath, cough, wheezing, and pleuritic chest pain, Abdomen/GI: Negative for abdominal pain, nausea, vomiting, diarrhea, and constipation, Back: Negative for injury and pain, Neuro: Negative for headache, weakness, numbness, tingling, and seizure. 15:35 MS/extremity: Positive for pain. Exam: 15:35 Constitutional: This is a well developed, well nourished patient who is awake, alert, sb4 and in no acute distress. Head/Face: Normocephalic, atraumatic. Eyes: Extra-ocular motions intact. Periorbital areas with no swelling, redness, or edema. Cardiovascular: Regular rate and rhythm with a normal S1 and S2. Respiratory: Lungs have equal breath sounds bilaterally, clear to auscultation and percussion. No rales, rhonchi or wheezes noted. No increased work of breathing, no retractions or nasal flaring. Abdomen/GI: Soft, non-tender, no distension. Back: No spinal tenderness. No costovertebral tenderness. Full range of motion. Skin: Warm, dry with normal turgor. Normal color with no rashes, no lesions, and no evidence of cellulitis. 15:35 Musculoskeletal/extremity: Exam is negative for decreased range of motion, tenderness, Circulation is intact in all extremities. Sensation intact. Weight bearing: able to fully bear weight, without difficulty. Vital Signs: 14:51 BP 136 / 83; Pulse 73; Resp 17; Temp 97.8; Pulse Ox 100% ; Weight 81.65 kg; ap3 16:00 BP 134 / 79; Pulse 75; Resp 18; Pulse Ox 99% on R/A; eh3 MDM: 14:55 Patient medically screened. sb4 15:35 Differential diagnosis: contusion, tendonitis, muscle strain. Data reviewed: vital sb4 signs, nurses notes. Data reviewed: and as a result, I will discharge patient. Test considered but Not performed: X-ray: Not concerned about bone involvement. . Counseling: I had a detailed discussion with the patient and/or guardian regarding: the need for outpatient follow up, a orthopedic surgeon. ED course: Discussed with patient that this was most likely a hamstring strain/pull and will take a few weeks to heal. No imaging is indicated at this time. I recommended ice, heat, rest, and prescribed NSAID/muscle relaxant. Patient is instructed to follow up with ortho if symptoms are not improving. . Administered Medications: 16:15 Drug: Decadron (dexamethasone) 10 mg Route: IM; Site: left vastus lateralis; eh3 16:40 Follow up: Response: Pain is decreased eh3 16:15 Drug: Ketorolac 15 mg Route: IM; Site: right vastus lateralis; eh3 16:40 Follow up: Response: Pain is decreased eh3 Disposition Summary: 12/14/22 15:16 Discharge Ordered Location: Home sb4 Problem: new sb4 Symptoms: are unchanged sb4 Condition: Stable sb4 Diagnosis - Hamstring Strain sb4 Followup: sb4 - With: Stevie Fonseca MD - When: 10 - 14 days - Reason: Further diagnostic work-up, Recheck today's complaints, Re-evaluation by your physician Discharge Instructions: - Discharge Summary Sheet sb4 - Muscle Strain, [id number] sb4 Forms: - Medication Reconciliation Form sb4 - Thank You Letter sb4 - Antibiotic Education sb4 - Prescription Opioid Use sb4 Prescriptions: - Cyclobenzaprine 10 mg Oral Tablet - take 1 tablet by ORAL route every 8 hours As needed; 30 tablet; Refills: 0, sb4 Product Selection Permitted - Diclofenac Sodium 75 mg Oral Tablet Sustained Release - take 1 tablet by ORAL route 2 times per day; 30 tablet; Refills: 0, Product sb4 Selection Permitted Signatures: Petty Roberts RN RN ap3 Janell Walden RN RN eh3 Esther Kenny PA-C PA-C sb4
--- NOTE | 2022-12-14 15:17 | ER ---
Nurse's Notes [facility] Name: Jhon Long Age: 72 yrs Sex: Male : 1950 Arrival Date: 12/14/2022 Time: 13:35 Bed 11 Private MD: Diagnosis: Hamstring Strain Presentation: 12/14 14:51 Chief complaint: Patient states: he got out of his truck wrong yesterday and has been ap3 having right leg pain since. patient reports pain to be 10/10 on the pain scale. Coronavirus screen: At this time, the client does not indicate any symptoms associated with coronavirus-19. Ebola Screen: No symptoms or risks identified at this time. Initial Sepsis Screen: Does the patient meet any 2 criteria? No. Patient's initial sepsis screen is negative. Does the patient have a suspected source of infection? No. Patient's initial sepsis screen is negative. Risk Assessment: Do you want to hurt yourself or someone else? Patient reports no desire to harm self or others. Onset of symptoms was December 13, 2022. 14:51 Method Of Arrival: Ambulatory ap3 14:51 Acuity: LILIANE 4 ap3 Triage Assessment: 14:52 General: Appears in no apparent distress. Behavior is calm, cooperative. Pain: ap3 Complains of pain in right leg Pain began 1 day ago. Neuro: Level of Consciousness is awake, alert, obeys commands, Oriented to person, place, time, situation. Cardiovascular: Patient's skin is warm and dry. Respiratory: Airway is patent Respiratory effort is even, unlabored, Respiratory pattern is regular, symmetrical. Musculoskeletal: Reports pain in right leg. Historical: - Allergies: 14:52 No Known Allergies; ap3 - PMHx: 14:52 Back pain; COPD; Diabetes - NIDDM; diabetes mellitus; Hypertension; Hypertensive ap3 disorder; Sleep Apnea; - Immunization history:: Client reports receiving the 2nd dose of the Covid vaccine, Flu vaccine is up to date. - Social history:: Smoking status: Patient denies any tobacco usage or history of. Patient uses. Screenin:53 Abuse screen: Denies threats or abuse. Nutritional screening: No deficits noted. ap3 Tuberculosis screening: No symptoms or risk factors identified. 16:00 [facility] ED Fall Risk Assessment (Adult) History of falling in the last 3 months, eh3 including since admission No falls in past 3 months (0 pts) Confusion or Disorientation No (0 pts) Intoxicated or Sedated No (0 pts) Impaired Gait Yes (1 pt) Mobility Assist Device Used No (0 pt) Altered Elimination No (0 pt) Score/Fall Risk Level 0 - 2 = Low Risk. Assessment: 16:00 General: Appears in no apparent distress. uncomfortable, Behavior is calm, cooperative, eh3 appropriate for age. Pain: Complains of pain in right hamstring Pain began 1 day ago. Neuro: Level of Consciousness is awake, alert, obeys commands, Oriented to person, place, time, situation. Cardiovascular: Capillary refill < 3 seconds Patient's skin is warm and dry. Respiratory: Airway is patent Respiratory effort is even, unlabored, Respiratory pattern is regular, symmetrical. GI: No signs and/or symptoms were reported involving the gastrointestinal system. Abdomen is round non-distended. : No signs and/or symptoms were reported regarding the genitourinary system. EENT: No signs and/or symptoms were reported regarding the EENT system. Derm: No signs and/or symptoms reported regarding the dermatologic system. Skin is pink, warm \T\ dry. Musculoskeletal: No signs and/or symptoms reported regarding the musculoskeletal system. Circulation, motion, and sensation intact. Range of motion: intact in all extremities. Vital Signs: 14:51 BP 136 / 83; Pulse 73; Resp 17; Temp 97.8; Pulse Ox 100% ; Weight 81.65 kg; ap3 16:00 BP 134 / 79; Pulse 75; Resp 18; Pulse Ox 99% on R/A; eh3 ED Course: 13:35 Patient arrived in ED. mr 14:08 Esther Kenny PA-C is PHCP. sb4 14:08 Guanako Chandler MD is Attending Physician. sb4 14:52 Triage completed. ap3 14:53 Arm band placed on left wrist. ap3 15:14 Stevie Fonseca MD is Referral Physician. sb4 16:00 Patient has correct armband on for positive identification. Bed in low position. Call eh3 light in reach. Side rails up X2. Pulse ox on. NIBP on. Door closed. Noise minimized. Lights dimmed. 16:05 Janell Walden, JEEVAN is Primary Nurse. eh3 16:39 No provider procedures requiring assistance completed. Patient did not have IV access eh3 during this emergency room visit. Administered Medications: 16:15 Drug: Decadron (dexamethasone) 10 mg Route: IM; Site: left vastus lateralis; 3 16:40 Follow up: Response: Pain is decreased eh3 16:15 Drug: Ketorolac 15 mg Route: IM; Site: right vastus lateralis; eh3 16:40 Follow up: Response: Pain is decreased eh3 Medication: 14:53 VIS not applicable for this client. ap3 Outcome: 15:16 Discharge ordered by . sb4 16:39 Discharged to home ambulatory. eh3 16:39 Condition: stable 16:39 Discharge instructions given to patient, Instructed on discharge instructions, follow up and referral plans. medication usage, Demonstrated understanding of instructions, follow-up care, medications, Prescriptions given X 2. 16:40 Patient left the ED. eh3 Signatures: Ada Estrada Amanda, RN RN ap3 Janell Walden RN RN eh3 Esther Kenny PA-C PAAj sb4
[2022-12-14 16:57] VITALS: TEMP 97.8
[2022-12-14 16:58] VITALS: BP 134/79; O2SAT 99
== END 2022-12-14 16:40 | disposition home or self-care (01) ==
LOC: ER 13:29
DX: S76.811A Strain of other specified muscles, fascia and tendons at thigh level, right thigh, initial encounter (principal); E11.9 Type 2 diabetes mellitus without complications; I10 Essential (primary) hypertension

== ENCOUNTER 2025-01-14 07:56 | Day surgery (SDC) | payer OTHER, BC ==
[2025-01-09 11:03] LABS: Absolute Eosinophils 0.2 K/uL (0-0.5); Absolute Lymphocytes (CBC) 1.7 K/uL (0.7-4.9); Absolute Monocytes 0.5 K/uL (0.1-1.3); Absolute Neutrophil 2.5 K/uL (1.8-8.0); Eosinophils % 3.3 % (0-4.4); Hemoglobin 13.4 g/dL (13.6-17.9); Lymphocytes % 34.6 % (15.3-44.8); MCH 31.3 pg (27.0-35.0); MCHC 35.3 g/dL (32.0-36.0); MCV 88.7 fL (80-100); MPV 8.4 fL (7.6-11.3); Monocytes % 10.1 % (3.3-12.3); Platelets 192 thou/uL (152-406); RBC Red Blood Cell Count 4.28 M/uL (4.33-5.43); Red Cell Distribution Width 13.3 % (12.1-15.2)
[2025-01-09 11:15] LABS: Anion Gap 4.1 mEq/L (5.0-15.0); Potassium 4.1 mEq/L (3.5-5.1)
--- NOTE | 2025-01-10 14:41 | EKG ---
Test Date: 2025-01-09 Test Time: 10:46:42 Caddie Supervisor: ABIGAIL MEASUREMENT RESULTS: Intervals: Rate: 67 WV: 198 QRSD: 100 QT: 392 QTc: 414 [place]: P: 20 WV: 198 QRS: -28 T: 21 INTERPRETIVE STATEMENTS: Normal sinus rhythm Normal ECG Compared to ECG 04/05/2021 09:01:12 Left ventricular hypertrophy no longer present Electronically Signed On 01-10-25 14:40:02 CDT by Inder Noonan
[2025-01-14] MEDS: NA CHLORIDE 0.9% 1,000 ML ONE (08:23)
[2025-01-14] MEDS ORDERED: LIDOCAINE 1% MPF 5 ML VIAL ONE (08:33)
[2025-01-14] MEDS ORDERED: FENTANYL CITR 100 MCG/2 ML ONE (08:33)
[2025-01-14] MEDS ORDERED: MIDAZOLAM HCL 2 MG/2 ML INJ ONE (08:33)
[2025-01-14] MEDS ORDERED: propofoL 200 MG/20 ML VIAL IV ONE (08:33)
[2025-01-14] MEDS: CEFAZOLIN SODIUM 1 GM/VIAL ONE (09:37)
[2025-01-14] MEDS ORDERED: EPHEDRINE SULF 50 MG/ML VIAL ONE (09:46)
[2025-01-14] MEDS ORDERED: ONDANSETRON 4 MG/2 ML VIAL ONE (10:05)
[2025-01-14] MEDS: HYDROMORPHONE HCL 1 MG/ML INJ ONE ×2 (10:39→10:49)
[2025-01-14] MEDS ORDERED: HYDROCODONE/APAP 7.5/325 MG TAB PO ONE (10:58)
--- NOTE | 2025-01-14 11:03 | OP ---
Date of Procedure: 01/14/2025 Surgeon: Finesse Greene MD Preoperative Diagnosis: Right 5th trigger digit. Postoperative Diagnosis: Right 5th trigger digit. Procedure: Right 5th trigger digit release. Estimated Blood Loss: Less than 3 cc. Complications: There were no complications. Specimen: There are no pathology specimens sent. Indications For Operation: Mr. 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 I saw him in my office and discussed oper ative and nonoperative methods of managing this. He has had a trigger digit release by me in the pas t that did extremely well. He did not want to pursue injection and wanted to pursue release as he bolaños d in the past for another digit. Risks, benefits, and alternatives were again discussed with him. Kg connelly states he understands things as presented and wishes to proceed. He does demonstrate active trigge ring pain and slight stiffness of the 5th digit. He is otherwise neurovascularly intact. Description Of Procedure: The patient was taken to the operating room, placed in supine position. G eneral anesthesia was obtained by staff. Following this, a well-padded tourniquet was placed on supe rior right arm. Right upper extremity was then prepped and draped in usual sterile fashion for the p rocedure. Following this, the arm was then elevated, but not exsanguinated and the tourniquet was ra ised. The position of the A1 zohreh and metacarpal head are determined using anatomic landmarks as w ell as palpation. A transverse incision was then made carefully through skin only. Meticulous hemos tasis being maintained using bipolar electrocautery. After this, blunt dissection was used exclusive ly until the tendon and tendon sheath are encountered and the A1 zohreh is seen. After this, a knife was used to incise the A1 zohreh with some release of synovial fluid. After this, neck was then exp anded in a proximal to distal direction and then back into a distal proximal direction. It was check ed very closely to ensure we remained in midline. Also, at no time were any sharp instruments placed outside the operative field. After this, the hemostat was used to ensure there were no constricting bands and the finger was brought through full range of motion. There was found to be no abnormal te ndon motion. After this, the skin was then carefully closed using nylon sutures. The patient was pl aced in a well-padded sterile dressing, awakened, taken to recovery room in good condition. No compl ications. /MODL Voice ID: [id number] Report ID: [id number]
[2025-01-14 12:47] VITALS: BP 114/65; TEMP 97.1; O2SAT 97
== END 2025-01-14 11:55 | disposition home or self-care (01) ==
LOC: OR 07:56
PROVIDERS: ATTEND Orthopaedic Surgery
PROC: 0LN70ZZ Release Right Hand Tendon, Open Approach (ICD-10-PCS; principal; 2025-01-14 09:45)
DX: M65.351 Trigger finger, right little finger (principal)
CPT/HCPCS: 93005; 85025; 80048; 36415; 82947 ×2; 26055; J2704; J2003; J2250; J3010; J1171 ×2; J2405; J7030; J0690